=== PATIENT | male | born 1945 | race Caucasian/White ===

== ENCOUNTER 2017-07-01 19:11 | Inpatient (IN) ==
--- NOTE | 2017-07-01 19:34 | Emergency Department Note ---
Disposition Clinical Impression: HCAP (healthcare-associated pneumonia), Influenza, Hypoxia, Sepsis, Acute kidney injury, Diarrhea Disposition: Admitted As Inpatient Condition: Good General Adult HPI - General Chief complaint: ED General Medical Stated complaint: +Flu, abd pain, diarrhea Time Seen by Provider: 07/01/17 19:22 Source: patient, family Limitations: no limitations - History of Present Illness Pain Scale: 8 - Related Data Home Medications Medication Instructions Recorded Confirmed Albuterol Sulfate [Ventolin Hfa] 2 puff IH Q6H PRN 06/12/17 07/01/17 Amlodipine Besylate 10 mg PO DAILY 06/12/17 07/01/17 Aspirin [Lo-Dose Aspirin EC] 81 mg PO DAILY 06/12/17 07/01/17 Atorvastatin [Lipitor] 40 mg PO HS 06/12/17 07/01/17 Calcium Carb/Vitamin D3/Vit K1 1 each PO BID 06/12/17 07/01/17 [Calcium + D Soft Chewable Tab] Lisinopril [Zestril] 40 mg PO DAILY 06/12/17 07/01/17 Metformin HCl [Glucophage] 1,000 mg PO BID 06/12/17 07/01/17 Albuterol Neb [Proventil Neb] 2.5 mg IH Q8H PRN 07/01/17 07/01/17 Azithromycin [Azithromycin 6-Tab 250 mg PO PER PKG DI 07/01/17 07/01/17 Pack] Benzonatate [Tessalon] 100 mg PO Q6H PRN 07/01/17 07/01/17 Budesonide/Formoterol 160/4.5 2 puff IH BIDR 07/01/17 07/01/17 [Symbicort 160/4.5] Carboxymethylcellulose Sodium 1 drop OP TID 07/01/17 07/01/17 [Refresh Liquigel] Cetirizine HCl [Zyrtec] 10 mg PO DAILY 07/01/17 07/01/17 Cyanocobalamin (Vitamin B-12) 1,000 mcg PO DAILY 07/01/17 07/01/17 [Vitamin B12] GuaiFENesin/Dextromethorphan 10 ml PO Q4H PRN 07/01/17 07/01/17 [Tussin Dm Syrup] Insulin Glargine [Lantus] 34 unit SQ HS 07/01/17 07/03/17 Mag Hydrox/Al Hydrox/Simeth 15 ml PO TIDAC 07/01/17 07/01/17 [Antacid Suspension] Nicotine Patch [Nicoderm] 7 mg TD DAILY 07/01/17 07/01/17 Nicotine Polacrilex [Nicotine 2 mg BC AD PRN 07/01/17 07/01/17 Lozenge] Omeprazole [PriLOSEC] 20 mg PO BIDAC 07/01/17 07/01/17 Oseltamivir [Tamiflu] 75 mg PO BID 07/01/17 07/01/17 Oxycodone HCl/Acetaminophen 1 each PO Q6H PRN 07/01/17 07/01/17 [Percocet 10-325 mg Tablet] Tiotropium [place] [Spiriva 2 puff IH DAILY 07/01/17 07/01/17 Respimat] Venlafaxine XR (24 HR) [Effexor XR] 37.5 mg PO DAILY 07/01/17 07/01/17 glipiZIDE [Glipizide] 10 mg PO BID 07/01/17 07/01/17 guaiFENesin [Guaifenesin] 400 mg PO Q12H 07/01/17 07/01/17 hydroCHLOROthiazide 25 mg PO DAILY 07/01/17 07/01/17 [Hydrochlorothiazide] Previous Rx's Medication Instructions Recorded Clopidogrel [Plavix] 75 mg PO DAILY #30 tablet 06/12/17 Allergies Allergy/AdvReac Type Severity Reaction Status Date / Time No Known Allergies Allergy Verified 06/12/17 06:54 Past Medical History - Past Medical History Medical history: Reports: cancer, COPD, diabetes, hyperlipidemia, hypertension Surgical history: Reports: cataract, orthopedic, other Psychiatric history: Reports: no psych history - Social History Smoking Status: Current every day smoker Smokeless Tobacco Status: No Alcohol use: Reports: rarely Drug use: Reports: none Physical Exam - General Limitations: no limitations General appearance: alert, in no apparent distress Course Vital Signs Temperature 97.7 F 07/01/17 19:13 Pulse Rate 119 07/01/17 19:13 Respiratory Rate 18 07/01/17 19:13 Blood Pressure 115/60 07/01/17 19:13 O2 Sat by Pulse Oximetry 85 07/01/17 19:13 Temperature 98 F 07/04/17 11:02 Pulse Rate 97 07/04/17 11:02 Respiratory Rate 16 07/04/17 11:02 Blood Pressure 135/75 07/04/17 11:02 O2 Sat by Pulse Oximetry 95 07/04/17 11:02 Oxygen Delivery Oxygen Delivery Nasal Cannula Medical Decision Making - Lab Data Result diagrams: 07/04/17 07:06 07/04/17 07:06 Lab Results 07/01/17 07/01/17 07/01/17 Range/Units 19:46 19:46 19:46 WBC 17.9 H (4.3-11.1) K/mcL RBC 4.70 (4.19-5.50) M/mcL Hgb 13.5 (12.9-16.9) g/dL Hct 40.5 (37.5-50.1) % MCV 86.2 (83.0-100.0) fL MCH 28.7 (28.0-33.3) pg MCHC 33.3 (31.6-35.5) g/dL RDW 13.3 (11.5-14.5) % Plt Count 346 (140-400) K/mcL MPV 11.0 (9.4-12.4) fL Seg Neutrophils % 70.0 % Band Neutrophils % 10.0 H (0-4) % Lymphocytes % 14.0 % Monocytes % 2.0 % Metamyelocytes % 4.0 H (0) % Neutrophils # 14.3 H (1.6-8.9) K/mcL Lymphocytes # 2.5 (0.6-4.6) K/mcL Monocytes # 0.4 (0.0-1.3) K/mcL Nucleated RBCs/100 WBC 0.2 H (0) /100 WBC Reactive Lymphocytes Present A (Not Present) Toxic Granulation Present A (Not Present) Platelet Estimate Normal (Normal) Sodium 133 L (136-145) mEq/L Potassium 3.1 L (3.5-5.1) mEq/L Chloride 99 (98-107) mEq/L Carbon Dioxide 22 L (23-29) mEq/L BUN 32 H (8-23) mg/dL Creatinine 1.38 H (0.70-1.30) mg/dL Est GFR ( Amer) > 60 (> 60) Est GFR (Non-Af Amer) 51 L (> 60) BUN/Creatinine Ratio 23 (6-26) Glucose 66 L (70-105) mg/dL Calculated Osmolality 281 (280-300) Lactic Acid 3.6 H (0.5-2.2) mmol/L Calcium 9.3 (8.6-10.3) mg/dL Total Bilirubin 0.7 (0.3-1.0) mg/dL Direct Bilirubin 0.1 (0.0-0.2) mg/dL Indirect Bilirubin 0.6 (0.0-1.2) mg/dL AST 57 H (13-39) Units/L ALT 51 (7-52) Units/L Alkaline Phosphatase 81 (34-104) Units/L Serum Total Protein 7.1 (6.4-8.9) g/dL Albumin 3.1 L (3.5-5.7) g/dL Globulin 4.0 H (2.4-3.5) g/dL Albumin/Globulin Ratio 0.8 L (1.1-2.2) Lipase 18 (11-82) Units/L Urine Color (Yellow) Urine Clarity (Clear) Urine pH (5.0-8.0) pH Units Ur Specific [place] (1.010-1.025) Urine Protein (Neg-Trace) mg/dL Urine Glucose (UA) (Normal) mg/dL Urine Ketones (Negative) mg/dL Urine Blood (Negative) Urine Nitrite (Negative) Urine Bilirubin (Negative) Urine Urobilinogen (Normal) mg/dL Ur Leukocyte Esterase (Negative) Urine Microscopic RBC (0-3) per hpf Urine Microscopic WBC (0-3) per hpf Ur Squamous Epith Cells (None-Few) per lpf Ur Renal Epithelial Cell (None-Few) per hpf Amorphous Sediment (Few) Urine Bacteria (None-Few) per hpf Hyaline Casts (None-Few) per lpf Ur Culture Indicated? (NO) 07/01/17 07/01/17 Range/Units 20:10 22:06 WBC (4.3-11.1) K/mcL RBC (4.19-5.50) M/mcL Hgb (12.9-16.9) g/dL Hct (37.5-50.1) % MCV (83.0-100.0) fL MCH (28.0-33.3) pg MCHC (31.6-35.5) g/dL RDW (11.5-14.5) % Plt Count (140-400) K/mcL MPV (9.4-12.4) fL Seg Neutrophils % % Band Neutrophils % (0-4) % Lymphocytes % % Monocytes % % Metamyelocytes % (0) % Neutrophils # (1.6-8.9) K/mcL Lymphocytes # (0.6-4.6) K/mcL Monocytes # (0.0-1.3) K/mcL Nucleated RBCs/100 WBC (0) /100 WBC Reactive Lymphocytes (Not Present) Toxic Granulation (Not Present) Platelet Estimate (Normal) Sodium (136-145) mEq/L Potassium (3.5-5.1) mEq/L Chloride (98-107) mEq/L Carbon Dioxide (23-29) mEq/L BUN (8-23) mg/dL Creatinine (0.70-1.30) mg/dL Est GFR ( Amer) (> 60) Est GFR (Non-Af Amer) (> 60) BUN/Creatinine Ratio (6-26) Glucose (70-105) mg/dL Calculated Osmolality (280-300) Lactic Acid 2.1 (0.5-2.2) mmol/L Calcium (8.6-10.3) mg/dL Total Bilirubin (0.3-1.0) mg/dL Direct Bilirubin (0.0-0.2) mg/dL Indirect Bilirubin (0.0-1.2) mg/dL AST (13-39) Units/L ALT (7-52) Units/L Alkaline Phosphatase (34-104) Units/L Serum Total Protein (6.4-8.9) g/dL Albumin (3.5-5.7) g/dL Globulin (2.4-3.5) g/dL Albumin/Globulin Ratio (1.1-2.2) Lipase (11-82) Units/L Urine Color Dark Yellow (Yellow) Urine Clarity Turbid A (Clear) Urine pH 5.5 (5.0-8.0) pH Units Ur Specific [place] 1.028 H (1.010-1.025) Urine Protein 30 H (Neg-Trace) mg/dL Urine Glucose (UA) Normal (Normal) mg/dL Urine Ketones Negative (Negative) mg/dL Urine Blood Negative (Negative) Urine Nitrite Negative (Negative) Urine Bilirubin Small H (Negative) Urine Urobilinogen Normal (Normal) mg/dL Ur Leukocyte Esterase Negative (Negative) Urine Microscopic RBC 0-3 (0-3) per hpf Urine Microscopic WBC 15-30 H (0-3) per hpf Ur Squamous Epith Cells Many H (None-Few) per lpf Ur Renal Epithelial Cell Few (None-Few) per hpf Amorphous Sediment Moderate H (Few) Urine Bacteria None Seen (None-Few) per hpf Hyaline Casts Moderate H (None-Few) per lpf Ur Culture Indicated? NO (NO) Attestation Statement - Attestation Attestation: I examined this patient and my medical decision-making was reviewed with the Resident Physician. I agree with the documented findings, disposition and treatment plan as described except to the extent set forth below. [id number] time provided Patient arrives in the care of his family other for ongoing symptoms after recently been diagnosed with influenza at the [facility]. The patient appears older than stated age and is sitting in a wheelchair at the time of my evaluation. He appears slightly tachypneic and dyspneic. He is not home oxygen dependent. The patient is seen in conjunction with the resident physician Dr. Lo
[2017-07-01] MEDS ORDERED: 0.9 % Sodium Chloride 1,000 ML IVC ONE ×3 (19:37→23:01)
[2017-07-01 19:57] LABS: Hematocrit 40.5 % (37.5-50.1); Hemoglobin 13.5 g/dL (12.9-16.9); Mean Corpuscular HGB Conc 33.3 g/dL (31.6-35.5); Mean Corpuscular Hemoglobin 28.7 pg (28.0-33.3); Mean Corpuscular Volume 86.2 fL (83.0-100.0); Nucleated Red Blood Cells 0.2 /100 WBC (0); Platelet Count 346 K/mcL (140-400); Red Cell Distribution Width 13.3 % (11.5-14.5)
[2017-07-01 20:13] LABS: Alanine Aminotransferase 51 Units/L (7-52); Albumin 3.1 g/dL (3.5-5.7); Albumin/Globulin Ratio 0.8 (1.1-2.2); Alkaline Phosphatase 81 Units/L (34-104); Aspartate Amino Transferase 57 Units/L (13-39); BUN/Creatinine Ratio 23 (6-26); Bilirubin,Direct 0.1 mg/dL (0.0-0.2); Bilirubin,Indirect 0.6 mg/dL (0.0-1.2); Bilirubin,Total 0.7 mg/dL (0.3-1.0); Blood Urea Nitrogen 32 mg/dL (8-23); Calcium 9.3 mg/dL (8.6-10.3); Carbon Dioxide 22 mEq/L (23-29); Chloride 99 mEq/L (98-107); Glucose 66 mg/dL (70-105); Lipase 18 Units/L (11-82); Osmolality,Calculated 281 (280-300); Potassium 3.1 mEq/L (3.5-5.1); Sodium 133 mEq/L (136-145); Total Protein 7.1 g/dL (6.4-8.9); eGFR For African Americans > 60 (> 60); eGFR For Non-African Americans 51 (> 60)
--- NOTE | 2017-07-01 20:14 | Emergency Department Note ---
Disposition Clinical Impression: HCAP (healthcare-associated pneumonia), Influenza, Hypoxia, Acute kidney injury Sepsis Qualifiers: Sepsis type: sepsis due to unspecified organism Qualified Code(s): A41.9 - Sepsis, unspecified organism Diarrhea Qualifiers: Diarrhea type: presumed infectious Qualified Code(s): R19.7 - Diarrhea, unspecified Disposition: Admitted As Inpatient Condition: Good Time of Disposition: 21:20 General Adult HPI - General Chief complaint: ED General Medical Stated complaint: +Flu, abd pain, diarrhea Time Seen by Provider: 07/01/17 19:22 Source: patient, family Limitations: no limitations Nursing Notes Reviewed: Yes Vital Signs Reviewed: Yes - History of Present Illness HPI Narrative: 72-year-old male history of hypertension, diabetes, hyperlipidemia, COPD not on home oxygen supplementation presents to the ED for flulike symptoms and abdominal pain with diarrhea. States are past 5 days he has been having flulike symptoms cough congestion. He also has some loose bowels. Recently evaluated at the [place] 2 days after which was on Thursday 2 days prior to evaluation here in diagnosed with the flu. He was also placed on the azithromycin as well as Tamiflu. Since then his symptoms have worsen. He has complaining of diffuse abdominal pain ascribed as a sharp ache. No radiation. Reports of nausea no vomiting. Denies any recent hospitalizations. Denies any chest pain. No fevers at home. He does not feel like he is improving. The diarrhea appears worse after the medications. Denies any urinary symptoms. History of bladder cancer with surgery. He has a follow-up appointment with his oncologist soon. At this time's suspect this could be likely medication related but will check some basic labs as well as a CT of the abdomen and pelvis. He was hypoxic on arrival and placed on 3 L nasal cannula. Will evaluate with a chest x-ray for possible pneumonia. He does not meet SIRS criteria at this time only for tachycardia. Patients concern for dehydration and his oral mucosal membranes are tacky. Will give him a leader of normal saline fluid. Denies history of congestive heart failure. Pain Scale: 8 - Related Data Home Medications Medication Instructions Recorded Confirmed Albuterol Sulfate [Ventolin Hfa] 2 puff IH Q6H PRN 06/12/17 07/01/17 Amlodipine Besylate 10 mg PO DAILY 06/12/17 07/01/17 Aspirin [Lo-Dose Aspirin EC] 81 mg PO DAILY 06/12/17 07/01/17 Atorvastatin [Lipitor] 40 mg PO HS 06/12/17 07/01/17 Calcium Carb/Vitamin D3/Vit K1 1 each PO BID 06/12/17 07/01/17 [Calcium + D Soft Chewable Tab] Lisinopril [Zestril] 40 mg PO DAILY 06/12/17 07/01/17 Metformin HCl [Glucophage] 1,000 mg PO BID 06/12/17 07/01/17 Albuterol Neb [Proventil Neb] 2.5 mg IH Q8H PRN 07/01/17 07/01/17 Azithromycin [Azithromycin 6-Tab 250 mg PO PER PKG DI 07/01/17 07/01/17 Pack] Benzonatate [Tessalon] 100 mg PO Q6H PRN 07/01/17 07/01/17 Budesonide/Formoterol 160/4.5 2 puff IH BIDR 07/01/17 07/01/17 [Symbicort 160/4.5] Carboxymethylcellulose Sodium 1 drop OP TID 07/01/17 07/01/17 [Refresh Liquigel] Cetirizine HCl [Zyrtec] 10 mg PO DAILY 07/01/17 07/01/17 Cyanocobalamin (Vitamin B-12) 1,000 mcg PO DAILY 07/01/17 07/01/17 [Vitamin B12] GuaiFENesin/Dextromethorphan 10 ml PO Q4H PRN 07/01/17 07/01/17 [Tussin Dm Syrup] Insulin Glargine [Lantus] 34 unit SQ DAILY 07/01/17 07/01/17 Mag Hydrox/Al Hydrox/Simeth 15 ml PO TIDAC 07/01/17 07/01/17 [Antacid Suspension] Nicotine Patch [Nicoderm] 7 mg TD DAILY 07/01/17 07/01/17 Nicotine Polacrilex [Nicotine 2 mg BC AD PRN 07/01/17 07/01/17 Lozenge] Omeprazole [PriLOSEC] 20 mg PO BIDAC 07/01/17 07/01/17 Oseltamivir [Tamiflu] 75 mg PO BID 07/01/17 07/01/17 Oxycodone HCl/Acetaminophen 1 each PO Q6H PRN 07/01/17 07/01/17 [Percocet 10-325 mg Tablet] Tiotropium [place] [Spiriva 2 puff IH DAILY 07/01/17 07/01/17 Respimat] Venlafaxine XR (24 HR) [Effexor XR] 37.5 mg PO DAILY 07/01/17 07/01/17 glipiZIDE [Glipizide] 10 mg PO BID 07/01/17 07/01/17 guaiFENesin [Guaifenesin] 400 mg PO Q12H 07/01/17 07/01/17 hydroCHLOROthiazide 25 mg PO DAILY 07/01/17 07/01/17 [Hydrochlorothiazide] Previous Rx's Medication Instructions Recorded Clopidogrel [Plavix] 75 mg PO DAILY #30 tablet 06/12/17 Allergies Allergy/AdvReac Type Severity Reaction Status Date / Time No Known Allergies Allergy Verified 06/12/17 06:54 All systems ED: reviewed and negative except as stated. Review of Systems: As Per HPI Constitutional: Denies: fever, chills ENT ED: Reports: congestion. Denies: throat pain Cardiovascular: Reports: dyspnea on exertion. Denies: chest pain Respiratory: Reports: cough, dyspnea Gastrointestinal: Reports: abdominal pain, diarrhea. Denies: nausea, vomiting Genitourinary: Denies: urgency, dysuria Musculoskeletal: Denies: back pain, neck pain Integumentary: Denies: rash, abrasion Neurological: Denies: headache Past Medical History - Past Medical History Attestation: Yes The following information was validated with the patient. Source: patient Medical history: Reports: cancer, COPD, diabetes, hyperlipidemia, hypertension Surgical history: Reports: cataract, orthopedic, other Psychiatric history: Reports: no psych history - Social History Smoking Status: Current every day smoker Smokeless Tobacco Status: No Alcohol use: Reports: rarely Drug use: Reports: none Physical Exam - General Limitations: no limitations General appearance: alert, in no apparent distress, obese - Head Head exam: atraumatic, normocephalic, normal inspection - Eye Eye exam: Present: normal appearance, PERRL, EOMI - ENT ENT exam: normal exam, normal oropharynx, mucous membranes dry - Neck Neck exam: Present: normal inspection, full ROM, trachea midline - Chest Chest inspection: Present: normal inspection, symmetric chest wall rise - Respiratory Respiratory exam: Present: normal lung sounds bilaterally. Absent: respiratory distress, wheezes - Expanded Respiratory Exam Location: rales: Lower, Right, Left - Cardiovascular Cardiovascular exam: Present: normal rhythm, tachycardia, normal heart sounds - Abdominal Exam Abdominal exam: Present: soft, tenderness, normal bowel sounds. Absent: Non- Tender, distention, guarding, rebound, rigidity, trauma, Walker's sign, Rovsing' s sign, tenderness at McBurney's Point Abdominal tenderness: Present: diffuse - Extremities Exam Extremities exam: Present: normal inspection, full ROM, normal capillary refill. Absent: tenderness, pedal edema - Back Exam Back exam: Present: normal inspection, full ROM. Absent: tenderness - Neurological Exam Neurological exam: Present: alert, oriented X3 - Psychiatric Psychiatric exam: Present: normal affect, normal mood - Skin Skin exam: Present: warm, dry, intact, normal color. Absent: rash, cyanosis, diaphoresis Course - Reevaluation(s) Reevaluation #1: Patient has confirmed pneumonia seen on CT and chest x-ray. Patient recently diagnosed with flu. He does meet sepsis criteria. Will treat him for healthcare associated pneumonia with vancomycin and Zosyn. Patient has a history of COPD reports worsening dyspnea. He recently quit smoking 2 days ago. No wheezing on lung auscultation. He does have some bibasilar rales. His lactase significantly elevated 3.6. Leukocytosis of 18. He also has a acute kidney injury consistent with likely dehydration. Patients currently receiving fluids. He is not hypotensive to require aggressive fluid resuscitation. His CT reveals inflammatory colitis consistent with his symptoms. Could be medication induced or infectious. Patient is are aware of the cyst on his left kidney. He reports them as a watery. No recent hospitalization to C. diff infection. At this time will continue to fluid hydrate and treat fro HCAP. Imodium for diarrhea and morphine for pain. Patients also initially hypoxic and currently requiring supplementation. Asians in agreement for admission and further management. - Consultations Consultation #1: Spoke with on-call hospitalist chet Kam to admit for HCAP, FLU, hypoxia, abd pain, diarrhea. No further orders at this time Time: 21:41 Vital Signs Temperature 97.7 F 07/01/17 19:13 Pulse Rate 119 07/01/17 19:13 Respiratory Rate 18 07/01/17 19:13 Blood Pressure 115/60 07/01/17 19:13 O2 Sat by Pulse Oximetry 85 07/01/17 19:13 Temperature 98.3 F 07/01/17 23:00 Pulse Rate 98 07/01/17 21:20 Respiratory Rate 18 07/01/17 23:00 Blood Pressure 121/55 07/01/17 23:00 O2 Sat by Pulse Oximetry 95 07/01/17 21:20 Oxygen Delivery Oxygen Delivery Nasal Cannula Medical Decision Making - MDM Narrative Medical decision making narrative: Patient was discussed with my attending physician who agrees with ED management and final disposition. They independently evaluated the patient. Please refer to their attestation to this encounter for additional information. This note was generated by [employer] voice recognition software and as a result grammatical or spelling errors may occur using this program. - Medical Records Medical records reviewed: Yes I reviewed the patient's medical records. - Lab Data Lab results reviewed: Yes I reviewed the patient's lab results. Result diagrams: 07/01/17 19:46 07/01/17 19:46 Lab Results 07/01/17 07/01/17 07/01/17 Range/Units 19:46 19:46 19:46 WBC 17.9 H (4.3-11.1) K/mcL RBC 4.70 (4.19-5.50) M/mcL Hgb 13.5 (12.9-16.9) g/dL Hct 40.5 (37.5-50.1) % MCV 86.2 (83.0-100.0) fL MCH 28.7 (28.0-33.3) pg MCHC 33.3 (31.6-35.5) g/dL RDW 13.3 (11.5-14.5) % Plt Count 346 (140-400) K/mcL MPV 11.0 (9.4-12.4) fL Seg Neutrophils % 70.0 % Band Neutrophils % 10.0 H (0-4) % Lymphocytes % 14.0 % Monocytes % 2.0 % Metamyelocytes % 4.0 H (0) % Neutrophils # 14.3 H (1.6-8.9) K/mcL Lymphocytes # 2.5 (0.6-4.6) K/mcL Monocytes # 0.4 (0.0-1.3) K/mcL Nucleated RBCs/100 WBC 0.2 H (0) /100 WBC Reactive Lymphocytes Present A (Not Present) Toxic Granulation Present A (Not Present) Platelet Estimate Normal (Normal) Sodium 133 L (136-145) mEq/L Potassium 3.1 L (3.5-5.1) mEq/L Chloride 99 (98-107) mEq/L Carbon Dioxide 22 L (23-29) mEq/L BUN 32 H (8-23) mg/dL Creatinine 1.38 H (0.70-1.30) mg/dL Est GFR ( Amer) > 60 (> 60) Est GFR (Non-Af Amer) 51 L (> 60) BUN/Creatinine Ratio 23 (6-26) Glucose 66 L (70-105) mg/dL Calculated Osmolality 281 (280-300) Lactic Acid 3.6 H (0.5-2.2) mmol/L Calcium 9.3 (8.6-10.3) mg/dL Total Bilirubin 0.7 (0.3-1.0) mg/dL Direct Bilirubin 0.1 (0.0-0.2) mg/dL Indirect Bilirubin 0.6 (0.0-1.2) mg/dL AST 57 H (13-39) Units/L ALT 51 (7-52) Units/L Alkaline Phosphatase 81 (34-104) Units/L Serum Total Protein 7.1 (6.4-8.9) g/dL Albumin 3.1 L (3.5-5.7) g/dL Globulin 4.0 H (2.4-3.5) g/dL Albumin/Globulin Ratio 0.8 L (1.1-2.2) Lipase 18 (11-82) Units/L Urine Color (Yellow) Urine Clarity (Clear) Urine pH (5.0-8.0) pH Units Ur Specific [place] (1.010-1.025) Urine Protein (Neg-Trace) mg/dL Urine Glucose (UA) (Normal) mg/dL Urine Ketones (Negative) mg/dL Urine Blood (Negative) Urine Nitrite (Negative) Urine Bilirubin (Negative) Urine Urobilinogen (Normal) mg/dL Ur Leukocyte Esterase (Negative) Urine Microscopic RBC (0-3) per hpf Urine Microscopic WBC (0-3) per hpf Ur Squamous Epith Cells (None-Few) per lpf Ur Renal Epithelial Cell (None-Few) per hpf Amorphous Sediment (Few) Urine Bacteria (None-Few) per hpf Hyaline Casts (None-Few) per lpf Ur Culture Indicated? (NO) 07/01/17 07/01/17 Range/Units 20:10 22:06 WBC (4.3-11.1) K/mcL RBC (4.19-5.50) M/mcL Hgb (12.9-16.9) g/dL Hct (37.5-50.1) % MCV (83.0-100.0) fL MCH (28.0-33.3) pg MCHC (31.6-35.5) g/dL RDW (11.5-14.5) % Plt Count (140-400) K/mcL MPV (9.4-12.4) fL Seg Neutrophils % % Band Neutrophils % (0-4) % Lymphocytes % % Monocytes % % Metamyelocytes % (0) % Neutrophils # (1.6-8.9) K/mcL Lymphocytes # (0.6-4.6) K/mcL Monocytes # (0.0-1.3) K/mcL Nucleated RBCs/100 WBC (0) /100 WBC Reactive Lymphocytes (Not Present) Toxic Granulation (Not Present) Platelet Estimate (Normal) Sodium (136-145) mEq/L Potassium (3.5-5.1) mEq/L Chloride (98-107) mEq/L Carbon Dioxide (23-29) mEq/L BUN (8-23) mg/dL Creatinine (0.70-1.30) mg/dL Est GFR ( Amer) (> 60) Est GFR (Non-Af Amer) (> 60) BUN/Creatinine Ratio (6-26) Glucose (70-105) mg/dL Calculated Osmolality (280-300) Lactic Acid 2.1 (0.5-2.2) mmol/L Calcium (8.6-10.3) mg/dL Total Bilirubin (0.3-1.0) mg/dL Direct Bilirubin (0.0-0.2) mg/dL Indirect Bilirubin (0.0-1.2) mg/dL AST (13-39) Units/L ALT (7-52) Units/L Alkaline Phosphatase (34-104) Units/L Serum Total Protein (6.4-8.9) g/dL Albumin (3.5-5.7) g/dL Globulin (2.4-3.5) g/dL Albumin/Globulin Ratio (1.1-2.2) Lipase (11-82) Units/L Urine Color Dark Yellow (Yellow) Urine Clarity Turbid A (Clear) Urine pH 5.5 (5.0-8.0) pH Units Ur Specific [place] 1.028 H (1.010-1.025) Urine Protein 30 H (Neg-Trace) mg/dL Urine Glucose (UA) Normal (Normal) mg/dL Urine Ketones Negative (Negative) mg/dL Urine Blood Negative (Negative) Urine Nitrite Negative (Negative) Urine Bilirubin Small H (Negative) Urine Urobilinogen Normal (Normal) mg/dL Ur Leukocyte Esterase Negative (Negative) Urine Microscopic RBC 0-3 (0-3) per hpf Urine Microscopic WBC 15-30 H (0-3) per hpf Ur Squamous Epith Cells Many H (None-Few) per lpf Ur Renal Epithelial Cell Few (None-Few) per hpf Amorphous Sediment Moderate H (Few) Urine Bacteria None Seen (None-Few) per hpf Hyaline Casts Moderate H (None-Few) per lpf Ur Culture Indicated? NO (NO) - Radiology Data Radiology results reviewed: Yes I reviewed the patient's radiology results. Abdomen/Pelvis CT 07/01/17 19:37 IMPRESSION: 1. Patchy consolidation within the lower lobes bilaterally, greater on the left, compatible with multifocal pneumonia. That should be followed to resolution. 2. Fluid-filled distention of both large and small bowel suggesting ileus in the setting of enteritis/colitis. 3. There is mild mural thickening involving the distal ileum as well is within the proximal aspect the colon, greatest at the hepatic flexure. Again, this most compatible with inflammation in the setting of infectious or inflammatory enteritis/colitis. 4. Hyperdense material layering within the gallbladder, possibly gallbladder sludge versus stones. 5. Indeterminate 1.5 cm lesion extending from the anterior aspect of the lower pole the left kidney, probably a hyperdense cyst. Nonemergent follow-up ultrasound is recommended after resolution of acute symptoms to ensure that this is a cystic lesion. D/ / Jose Angel Toledo MD / Jose Angel Toledo MD Interpreting Provider: Jose Angel Toledo MD Chest X-Ray 07/01/17 19:38 IMPRESSION: Patchy airspace disease in the mid to lower lungs bilaterally, greater on the right. Multifocal pneumonia is considered. D/ / Jose Angel Toledo MD / Jose Angel Toledo MD Interpreting Provider: Jose Angel Toledo MD
[2017-07-01 20:20] LABS: Lymphocytes # 2.5 K/mcL (0.6-4.6); Monocytes # 0.4 K/mcL (0.0-1.3); Neutrophils # 14.3 K/mcL (1.6-8.9)
[2017-07-01 20:21] LABS: Platelet Estimate Normal (Normal); Reactive Lymphocytes Present (Not Present); Toxic Granulation Present (Not Present)
[2017-07-01 20:39] LABS: Bilirubin,Urine Small (Negative); Blood,Urine Negative (Negative); Clarity,Urine Turbid (Clear); Color,Urine Dark Yellow (Yellow); Glucose,Urine (UA) Normal (Normal); Ketones,Urine Negative (Negative); Leukocyte Esterase,Urine Negative (Negative); Nitrite,Urine Negative (Negative); PH,Urine 5.5 pH Units (5.0-8.0); Protein,Urine 30 mg/dL (Neg-Trace); Specific Gravity,Urine 1.028 (1.010-1.025); Urobilinogen,Urine Normal (Normal)
[2017-07-01 20:43] LABS: Bacteria,Urine None Seen per hpf (None-Few); Squamous Epithelial Cell,Urine Many per lpf (None-Few); WBC,Urine 15-30 per hpf (0-3)
[2017-07-01] MEDS ORDERED: Vancomycin 1,500 MG in D5% in Water 250 ML IVPB ONE (20:52)
[2017-07-01] MEDS ORDERED: Piperacillin/Tazobactam 3.375 GM in D5% in Water (Mini-Bag+) 100 ML IVPB ONE (20:53)
[2017-07-01 20:55] LABS: Hyaline Casts,Urine Moderate per lpf (None-Few)
[2017-07-01 20:56] LABS: Renal Epithelial Cells,Urine Few per hpf (None-Few)
[2017-07-01 20:58] LABS: Amorphous Sediment,Urine Moderate (Few); RBC,Urine 0-3 per hpf (0-3)
[2017-07-01] MEDS ORDERED: *HR* Morphine 2 MG/ML SYRINGE IVP ONE (21:27)
[2017-07-01] MEDS ORDERED: Nicotine 2 MG GUM BC PRN (22:44)
[2017-07-01] MEDS ORDERED: Ipratropium/Albuterol Neb 3 ML IH PRN (22:46)
[2017-07-01] MEDS ORDERED: D5% in Water 1,000 ML IVC PRN (22:46)
[2017-07-01] MEDS ORDERED: *HR* Dextrose 50 % in Water (Syg) 50 ML SYRINGE IVP PRN (22:46)
[2017-07-01] MEDS ORDERED: Dextrose Gel 15 GM/37.5 ML TUBE PO PRN ×2 (22:46)
[2017-07-01] MEDS ORDERED: Naloxone 0.4 MG/ML INJ IVP PRN (22:47)
--- NOTE | 2017-07-01 22:54 | Internal Med History&Physical ---
Date of Encounter: 07/01/17 Time of Encounter: 22:51 Assessment and Plan (1) Influenza Current visit: Yes Status: Acute tamiflu (2) PNA (pneumonia) Current visit: Yes Status: Acute empiric IV antibiotics send serologies, pneumoccocal treat flu duonebs trend lactate - likely due to low BP IVF boluses Qualifiers: Qualified Code(s): J18.9 - Pneumonia, unspecified organism (3) Acute kidney injury Current visit: Yes Status: Acute 2/2 to diarrhea IVF with K additive check Mg repeat lab in the a.m (4) Diarrhea Current visit: Yes Status: Acute likely related to flu illness check legionella Qualifiers: Diarrhea type: presumed infectious Qualified Code(s): R19.7 - Diarrhea, unspecified (5) DMII (diabetes mellitus, type 2) Current visit: Yes Status: Acute hold home insulin /med due to questionable PO intake with acute illness ISS for now and adjust accordingly as needed Qualifiers: Diabetes mellitus complication status: without complication Qualified Code( s): E11.9 - Type 2 diabetes mellitus without complications; Z79.4 - long term acute care registered nurse ( current) use of insulin; Z79.4 - alf (current) use of insulin; Z79.4 - alf (current) use of insulin; Z79.4 - long term acute care registered nurse (current) use of insulin (6) HTN (hypertension) Current visit: Yes Status: Acute hold BP med 2/2 to hypovolemia from fluid losses Qualifiers: Hypertension type: essential hypertension Qualified Code(s): I10 - Essential (primary) hypertension Internal Medicine - H&P: HPI Chief complaint: diarrhea, SOB History of present illness: Mr. Walker is a 72 year old male who presents with diarrhea and progressive SOB. Symptoms began on thursday when he developed diarrhea, non-bloody, associated with abdo pain and SOB all at that same time. He recalled that he was at a on where everyone was sick. [facility] and he was sent home on tamiflu and azithro. Symptoms did not get better since returning home. He gets winded around his house. At baseline he uses no oxygen and smokes 3/4 ppd. He reports fever and chills XR/XR chest 1V portable IMPRESSION: Patchy airspace disease in the mid to lower lungs bilaterally, greater on the right. Multifocal pneumonia is considered. Past Med Surg Social Fam HX - Past Medical History Medical history: cancer, COPD, diabetes, hyperlipidemia, hypertension Psychiatric history: no psych history - Past Surgical History Surgical History: cataract, orthopedic, other - Social History Smoking Status: Current every day smoker Smokeless Tobacco Status: No Alcohol use: rarely Drug use: none Internal Medicine - H&P: Meds Albuterol Sulfate [Ventolin Hfa] 2 puff IH Q6H PRN 06/12/17 [History] Amlodipine Besylate 10 mg PO DAILY 06/12/17 [History] Aspirin [Lo-Dose Aspirin EC] 81 mg PO DAILY 06/12/17 [History] Atorvastatin [Lipitor] 40 mg PO HS 06/12/17 [History] Calcium Carb/Vitamin D3/Vit K1 [Calcium + D Soft Chewable Tab] 1 each PO BID [History] Clopidogrel [Plavix] 75 mg PO DAILY #30 tablet 06/12/17 [Rx] Lisinopril [Zestril] 40 mg PO DAILY 06/12/17 [History] Metformin HCl [Glucophage] 1,000 mg PO BID 06/12/17 [History] Albuterol Neb [Proventil Neb] 2.5 mg IH Q8H PRN 07/01/17 [History] Azithromycin [Azithromycin 6-Tab Pack] 250 mg PO PER PKG DI 07/01/17 [History] Benzonatate [Tessalon] 100 mg PO Q6H PRN 07/01/17 [History] Budesonide/Formoterol 160/4.5 [Symbicort 160/4.5] 2 puff IH BIDR 07/01/17 [ History] Carboxymethylcellulose Sodium [Refresh Liquigel] 1 drop OP TID 07/01/17 [History ] Cetirizine HCl [Zyrtec] 10 mg PO DAILY 07/01/17 [History] Cyanocobalamin (Vitamin B-12) [Vitamin B12] 1,000 mcg PO DAILY 07/01/17 [History ] GuaiFENesin/Dextromethorphan [Tussin Dm Syrup] 10 ml PO Q4H PRN 07/01/17 [ History] Insulin Glargine [Lantus] 34 unit SQ DAILY 07/01/17 [History] Mag Hydrox/Al Hydrox/Simeth [Antacid Suspension] 15 ml PO TIDAC 07/01/17 [ History] Nicotine Patch [Nicoderm] 7 mg TD DAILY 07/01/17 [History] Nicotine Polacrilex [Nicotine Lozenge] 2 mg BC AD PRN 07/01/17 [History] Omeprazole [PriLOSEC] 20 mg PO BIDAC 07/01/17 [History] Oseltamivir [Tamiflu] 75 mg PO BID 07/01/17 [History] Oxycodone HCl/Acetaminophen [Percocet 10-325 mg Tablet] 1 each PO Q6H PRN [History] Tiotropium [place] [Spiriva Respimat] 2 puff IH DAILY 07/01/17 [History] Venlafaxine XR (24 HR) [Effexor XR] 37.5 mg PO DAILY 07/01/17 [History] glipiZIDE [Glipizide] 10 mg PO BID 07/01/17 [History] guaiFENesin [Guaifenesin] 400 mg PO Q12H 07/01/17 [History] hydroCHLOROthiazide [Hydrochlorothiazide] 25 mg PO DAILY 07/01/17 [History] 3 Allergy/AdvReac Type Severity Reaction Status Date / Time No Known Allergies Allergy Verified 06/12/17 06:54 All Systems PM: A 10-system review of systems was performed and is negative for pertinent findings except as documented above in the HPI. Review of systems: ROS 14 point review of systems reviewed as best as possible given presentation. Pertinent positive or negative as per HPI or otherwise reviewed as negative - Constitutional Vitals: Temp Pulse Resp BP Pulse Ox 97.7 F 98 20 122/50 95 07/01/17 19:13 07/01/17 21:20 07/01/17 21:20 07/01/17 21:20 07/01/17 21:20 Exam: General - AAO x 3 Psych - Appropriate affect/speech. No agitation Eyes - CHRISTIANO. Eye lids intact. No scleral icterus Heart - Sinus. RRR. S1 and S2 present. No added HS/murmurs appreciated. No elevated JVD appreciated. Lung - Adequate air entry b/l, Bibasal crackles, no wheezes appreciated GI - Soft, non-tender. No hepatosplenomegaly/ascites. BS+ - No CVA/suprapubic tenderness or palpable bladder distension Skin - Intact. No rash/petechiae/ecchymosis. Warm extremities Internal Med - H&P Results - Labs CBC & Chem 7: 07/01/17 19:46 07/01/17 19:46
[2017-07-02] MEDS: GuaiFENesin Liq 200 MG/10 ML UDC PO SCH ×3 (00:06→21:47)
[2017-07-02] MEDS: Cefepime HCl 2,000 MG in Water for inj. (sterile) 20 ML IVP SCH ×2 (00:06→12:38)
[2017-07-02] MEDS: Azithromycin 500 MG in D5% in Water 250 ML IVPB SCH ×2 (00:19→23:27)
[2017-07-02] MEDS: 0.9 % Sodium Chloride w KCl 20 MEQ/1,000 ML MLS IVC SCH ×3 (03:30→23:28)
[2017-07-02 04:10] LABS: BUN/Creatinine Ratio 28 (6-26); Blood Urea Nitrogen 33 mg/dL (8-23); Calcium 8.2 mg/dL (8.6-10.3); Carbon Dioxide 23 mEq/L (23-29); Chloride 103 mEq/L (98-107); Glucose 55 mg/dL (70-105); Magnesium 1.8 mg/dL (1.6-2.6); Osmolality,Calculated 281 (280-300); Potassium 2.9 mEq/L (3.5-5.1); Sodium 133 mEq/L (136-145); eGFR For African Americans > 60 (> 60); eGFR For Non-African Americans 60 (> 60)
[2017-07-02] MEDS: Ipratropium/Albuterol Neb 3 ML IH SCH ×4 (04:21→22:39)
[2017-07-02 04:23] LABS: Basophils # 0.1 K/mcL (0.0-0.2); Basophils % 0.5 %; Immature Granulocytes % 1.1 % (0-4); Lymphocytes # 2.1 K/mcL (0.6-4.6); Mean Corpuscular Hemoglobin 28.8 pg (28.0-33.3); Mean Corpuscular Volume 87.1 fL (83.0-100.0); Mean Platelet Volume 11.5 fL (9.4-12.4); Monocytes # 0.8 K/mcL (0.0-1.3); Monocytes % 5.1 %; Neutrophils # 11.9 K/mcL (1.6-8.9); Nucleated Red Blood Cells 0.2 /100 WBC (0); Platelet Count 276 K/mcL (140-400); Red Blood Count 3.79 M/mcL (4.19-5.50); Red Cell Distribution Width 13.3 % (11.5-14.5); Segmented Neutrophils % 79.3 %
[2017-07-02 04:30] LABS: Hemoglobin 10.9 g/dL (12.9-16.9)
[2017-07-02] MEDS: *HR* OxyCODONE/APAP 10/325 TABLET PO PRN ×2 (04:33→16:06)
[2017-07-02 04:46] LABS: Platelet Estimate Normal (Normal); Reactive Lymphocytes Present (Not Present); Toxic Granulation Present (Not Present)
[2017-07-02] MEDS ORDERED: Cefepime HCl 2,000 MG in D5% in Water (Mini-Bag+) 100 ML IVPB SCH (06:00)
[2017-07-02] MEDS ORDERED: *HR* Enoxaparin 30 MG/0.3 ML SYRINGE SQ SCH (06:00)
[2017-07-02] MEDS ORDERED: Tiotropium 18 MCG inhalation IH SCH (09:00)
[2017-07-02] MEDS: Insulin LISPRO 300 UNITS/3 ML VIAL SQ SCH ×4 (09:02→21:49)
[2017-07-02] MEDS: Venlafaxine XR (24 HR) 37.5 MG CAP.ER.24H PO SCH (09:02)
[2017-07-02] MEDS: Aspirin Enteric Coated 81 MG Tablet PO SCH (09:03)
[2017-07-02] MEDS: Loratadine 10 MG TABLET PO SCH (09:03)
[2017-07-02] MEDS: Nicotine 14 MG PATCH.TD24 TD SCH (09:05)
[2017-07-02] MEDS ORDERED: Water for inj. (sterile) 20 ML IV ONE (12:35)
--- NOTE | 2017-07-02 18:13 | Internal Med Progress Note ---
Date of Encounter: 07/02/17 Time of Encounter: 18:11 (Pt seen this am) - Assessment and plan (1) PNA (pneumonia) Current Visit: Yes Status: Acute Assessment and plan: Influenza infection with Pneumonia like assoctiated with S. pneumo. Streptococcal Urinary Ag positive. Discontinue Cefepime and start Rocephin. Blood cultures pending. Continue DuoNebs Qualifiers: Pneumonia type: due to unspecified organism Laterality: unspecified laterality Lung location: unspecified part of lung Qualified Code(s): J18.9 - Pneumonia, unspecified organism (2) Influenza Current Visit: Yes Status: Acute Assessment and plan: Continue Tamiflu and supportive care. (3) Diarrhea Current Visit: Yes Status: Acute Qualifiers: Diarrhea type: unspecified type Qualified Code(s): R19.7 - Diarrhea, unspecified (4) Dehydration Current Visit: Yes Status: Acute (5) Acute kidney injury Current Visit: Yes Status: Acute Assessment and plan: Associated with N/V and Diarrhea. Continue fluid replacement and monitor renal function. - Time Spent With Patient Greater than 35 minutes - Subjective Interval history: 72 yr old man admitted overnight with Influenza and CAP. He's breathing more comfortably and in no acute distress. - Constitutional Vitals: Temp Pulse Resp BP Pulse Ox 97 F L 93 16 122/60 98 07/02/17 16:20 07/02/17 16:20 07/02/17 16:20 07/02/17 16:20 07/02/17 16:20 - Head Head exam: Present: normal inspection, normocephalic - Eye Eye exam: Present: EOMI, PERRL, conjuntiva pink, sclera anicteric - Neck Neck exam general surgery: Present: normal inspection, supple, trachea midline. Absent: lymphadenopathy, nuchal rigidity - Respiratory Respiratory exam: Present: CTAB. Absent: respiratory distress - Cardiovascular Cardiovascular exam: Present: RRR, +S1, +S2 - GI/Abdominal GI/Abdominal exam: Present: normal bowel sounds, soft, no peritoneal signs. Absent: guarding, rigid, tenderness - Extremities Exam Extremities exam: Present: pedal edema - Skin Skin exam: Present: dry, warm. Absent: rash Internal Medicine: Result - Labs CBC & Chem 7: 07/02/17 03:21 07/02/17 03:21 Labs: Short CBC 07/02/17 Range/Units 03:21 WBC 15.0 H (4.3-11.1) K/mcL Hgb 10.9 L D (12.9-16.9) g/dL Hct 33.0 L (37.5-50.1) % Plt Count 276 (140-400) K/mcL Neutrophils # 11.9 H (1.6-8.9) K/mcL BMP 07/02/17 03:21 Sodium 133 L Potassium 2.9 L Chloride 103 Carbon Dioxide 23 BUN 33 H Creatinine 1.20 Glucose 55 L Calcium 8.2 L Consult Discharge Plan - Plan [facility]errals: [facility] [Primary Care Provider[facility] -
[2017-07-02] MEDS: cefTRIAXone 2,000 MG in Water for inj. (sterile) 20 ML IVP SCH (20:02)
[2017-07-03] MEDS: Ipratropium/Albuterol Neb 3 ML IH SCH ×4 (05:14→22:49)
[2017-07-03] MEDS: *HR* Enoxaparin 40 MG/0.4 ML SYRINGE SQ SCH (05:40)
[2017-07-03 07:06] LABS: BUN/Creatinine Ratio 20 (6-26); Blood Urea Nitrogen 16 mg/dL (8-23); Calcium 8.1 mg/dL (8.6-10.3); Carbon Dioxide 24 mEq/L (23-29); Chloride 102 mEq/L (98-107); Glucose 225 mg/dL (70-105); Osmolality,Calculated 284 (280-300); Potassium 3.3 mEq/L (3.5-5.1); Sodium 133 mEq/L (136-145); eGFR For African Americans > 60 (> 60); eGFR For Non-African Americans > 60 (> 60)
[2017-07-03 07:39] LABS: Hematocrit 32.8 % (37.5-50.1); Hemoglobin 10.8 g/dL (12.9-16.9); Mean Corpuscular HGB Conc 32.9 g/dL (31.6-35.5); Mean Corpuscular Hemoglobin 28.8 pg (28.0-33.3); Mean Corpuscular Volume 87.5 fL (83.0-100.0); Mean Platelet Volume 11.5 fL (9.4-12.4); Nucleated Red Blood Cells 0.2 /100 WBC (0); Platelet Count 288 K/mcL (140-400); Red Blood Count 3.75 M/mcL (4.19-5.50); Red Cell Distribution Width 13.4 % (11.5-14.5)
[2017-07-03 08:00] LABS: Lymphocytes # 1.3 K/mcL (0.6-4.6); Monocytes # 1.1 K/mcL (0.0-1.3); Neutrophils # 10.9 K/mcL (1.6-8.9); Platelet Estimate Normal (Normal)
[2017-07-03] MEDS: GuaiFENesin Liq 200 MG/10 ML UDC PO SCH ×2 (09:59→21:45)
[2017-07-03] MEDS: Venlafaxine XR (24 HR) 37.5 MG CAP.ER.24H PO SCH (09:59)
[2017-07-03] MEDS: Nicotine 14 MG PATCH.TD24 TD SCH (09:59)
[2017-07-03] MEDS: *HR* OxyCODONE/APAP 10/325 TABLET PO PRN ×3 (10:00→21:45)
[2017-07-03] MEDS: Loratadine 10 MG TABLET PO SCH (10:00)
[2017-07-03] MEDS: Aspirin Enteric Coated 81 MG Tablet PO SCH (10:00)
[2017-07-03] MEDS: Insulin LISPRO 300 UNITS/3 ML VIAL SQ SCH ×4 (10:01→21:39)
--- NOTE | 2017-07-03 17:11 | Internal Med Progress Note ---
Date of Encounter: 07/03/17 Time of Encounter: 17:08 - Assessment and plan (1) PNA (pneumonia) Current Visit: Yes Status: Acute Assessment and plan: Influenza infection with Pneumonia like assoctiated with S. pneumo. Pneumococcal Urinary Ag positive. Continue Rocephinand azithromycin. Blood cultures pending. Continue DuoNebs His lung sound more rhonchorous today. Check CXR in the am. Qualifiers: Pneumonia type: due to unspecified organism Laterality: unspecified laterality Lung location: unspecified part of lung Qualified Code(s): J18.9 - Pneumonia, unspecified organism (2) Influenza Current Visit: Yes Status: Acute Assessment and plan: Continue Tamiflu and supportive care. (3) Diarrhea Current Visit: Yes Status: Acute Qualifiers: Diarrhea type: unspecified type Qualified Code(s): R19.7 - Diarrhea, unspecified (4) Dehydration Current Visit: Yes Status: Acute (5) Acute kidney injury Current Visit: Yes Status: Acute - Subjective Interval history: 72 yr old man with Influenza and CAP. His Pneumococcal urinary antigen was found to be positive. He's breathing comfortably but feels weaker today. No N/ V/D. - Constitutional Vitals: Temp Pulse Resp BP Pulse Ox 97.7 F 86 17 132/70 94 07/03/17 16:15 07/03/17 16:15 07/03/17 16:42 07/03/17 16:15 07/03/17 16:42 General appearance: Present: A&O X 3, no acute distress - Head Head exam: Present: atraumatic, normocephalic - Eye Eye exam: Present: EOMI, normal appearance, PERRL, conjuntiva pink, sclera anicteric Pupils: Present: PERRL - Neck Neck exam general surgery: Present: supple, trachea midline. Absent: lymphadenopathy - Respiratory Respiratory exam: Present: rhonchi. Absent: accessory muscle use, CTAB, rales, wheezes - Cardiovascular Cardiovascular exam: Present: RRR, +S1, +S2. Absent: diastolic murmur, gallop, rubs, systolic murmur - GI/Abdominal GI/Abdominal exam: Present: normal bowel sounds, soft, no peritoneal signs. Absent: distended, tenderness - Extremities Exam Extremities exam: Present: warm. Absent: calf tenderness, cyanotic, pedal edema - Neurological Exam Neurological exam: Present: CN II-XII intact, oriented X3, no focal deficits. Absent: pronater drift, facial droop, speech deficit - Skin Skin exam: Present: dry, intact, warm Internal Medicine: Result - Labs CBC & Chem 7: 07/03/17 04:32 07/03/17 04:32 Labs: Short CBC 07/03/17 Range/Units 04:32 WBC 13.3 H (4.3-11.1) K/mcL Hgb 10.8 L (12.9-16.9) g/dL Hct 32.8 L (37.5-50.1) % Plt Count 288 (140-400) K/mcL Neutrophils # 10.9 H (1.6-8.9) K/mcL BMP 07/03/17 04:32 Sodium 133 L Potassium 3.3 L Chloride 102 Carbon Dioxide 24 BUN 16 Creatinine 0.79 Glucose 225 H Calcium 8.1 L Consult Discharge Plan - Plan [facility]errals: [facility] [Primary Care Provider] -
[2017-07-03] MEDS: 0.9 % Sodium Chloride w KCl 20 MEQ/1,000 ML MLS IVC SCH (18:45)
[2017-07-03] MEDS: cefTRIAXone 2,000 MG in Water for inj. (sterile) 20 ML IVP SCH (19:56)
[2017-07-03] MEDS: Insulin DETEMIR 100 UNIT/ML X5UNITS SQ SCH (21:45)
[2017-07-03] MEDS: Ondansetron 4 MG/2 ML VIAL IVP PRN (23:37)
[2017-07-03] MEDS: Azithromycin 500 MG in D5% in Water 250 ML IVPB SCH (23:38)
[2017-07-04] MEDS: *HR* OxyCODONE/APAP 10/325 TABLET PO PRN ×2 (03:43→11:28)
[2017-07-04] MEDS: 0.9 % Sodium Chloride w KCl 20 MEQ/1,000 ML MLS IVC SCH (03:44)
[2017-07-04] MEDS: Ipratropium/Albuterol Neb 3 ML IH SCH ×3 (04:30→15:59)
[2017-07-04] MEDS: *HR* Enoxaparin 40 MG/0.4 ML SYRINGE SQ SCH (06:02)
[2017-07-04] MEDS: Loratadine 10 MG TABLET PO SCH (07:59)
[2017-07-04] MEDS: Venlafaxine XR (24 HR) 37.5 MG CAP.ER.24H PO SCH (07:59)
[2017-07-04] MEDS: amLODIPine 5 MG TABLET PO SCH (07:59)
[2017-07-04] MEDS: Aspirin Enteric Coated 81 MG Tablet PO SCH (07:59)
[2017-07-04] MEDS: Nicotine 14 MG PATCH.TD24 TD SCH (08:00)
[2017-07-04] MEDS: Insulin LISPRO 300 UNITS/3 ML VIAL SQ SCH ×4 (08:00→21:29)
[2017-07-04] MEDS: Ondansetron 4 MG/2 ML VIAL IVP PRN (08:09)
[2017-07-04 08:23] LABS: Hematocrit 34.7 % (37.5-50.1); Hemoglobin 11.4 g/dL (12.9-16.9); Lymphocytes # 1.5 K/mcL (0.6-4.6); Mean Corpuscular HGB Conc 32.9 g/dL (31.6-35.5); Mean Corpuscular Hemoglobin 28.4 pg (28.0-33.3); Mean Corpuscular Volume 86.3 fL (83.0-100.0); Mean Platelet Volume 10.8 fL (9.4-12.4); Monocytes # 0.9 K/mcL (0.0-1.3); Nucleated Red Blood Cells 0.3 /100 WBC (0); Platelet Count 354 K/mcL (140-400); Red Blood Count 4.02 M/mcL (4.19-5.50); Red Cell Distribution Width 13.4 % (11.5-14.5)
[2017-07-04 08:31] LABS: BUN/Creatinine Ratio 11 (6-26); Blood Urea Nitrogen 8 mg/dL (8-23); Calcium 8.4 mg/dL (8.6-10.3); Carbon Dioxide 29 mEq/L (23-29); Chloride 98 mEq/L (98-107); Glucose 217 mg/dL (70-105); Osmolality,Calculated 281 (280-300); Potassium 3.6 mEq/L (3.5-5.1); Sodium 133 mEq/L (136-145); eGFR For African Americans > 60 (> 60); eGFR For Non-African Americans > 60 (> 60)
[2017-07-04 09:29] LABS: Neutrophils # 12.7 K/mcL (1.6-8.9)
[2017-07-04 09:30] LABS: Platelet Estimate Normal (Normal)
[2017-07-04] MEDS: GuaiFENesin Liq 200 MG/10 ML UDC PO SCH ×2 (11:25→23:41)
--- NOTE | 2017-07-04 18:01 | Internal Med Progress Note ---
Date of Encounter: 07/04/17 Time of Encounter: 17:59 - Assessment and plan (1) PNA (pneumonia) Current Visit: Yes Status: Acute Qualifiers: Pneumonia type: due to unspecified organism Laterality: unspecified laterality Lung location: unspecified part of lung Qualified Code(s): J18.9 - Pneumonia, unspecified organism (2) Influenza Current Visit: Yes Status: Acute (3) Diarrhea Current Visit: Yes Status: Acute Qualifiers: Diarrhea type: unspecified type Qualified Code(s): R19.7 - Diarrhea, unspecified (4) Dehydration Current Visit: Yes Status: Acute (5) Acute kidney injury Current Visit: Yes Status: Acute - Subjective Interval history: 72 yr old man with Influenza and CAP. His Pneumococcal urinary antigen was found to be positive. Today his abdomen became distended and painful. An acute abdominal series showed a likely SBO vs ileus so he was made nop and a CT-abd/ pelvis was ordered to evaluate further. - Constitutional Vitals: Temp Pulse Resp BP Pulse Ox 98.2 F 92 16 110/73 94 07/04/17 15:31 07/04/17 15:31 07/04/17 15:31 07/04/17 15:31 07/04/17 15:31 General appearance: Present: A&O X 3, no acute distress - Head Head exam: Present: atraumatic, normocephalic - Eye Eye exam: Present: PERRL, conjuntiva pink, sclera anicteric Pupils: Present: PERRL - Neck Neck exam general surgery: Present: supple, trachea midline. Absent: lymphadenopathy - GI/Abdominal GI/Abdominal exam: Present: distended, guarding, tenderness, no peritoneal signs. Absent: rebound, rigid - Extremities Exam Extremities exam: Present: warm, radial pulses palpable and symmetrical. Absent : calf tenderness, cyanotic, pedal edema Internal Medicine: Result - Labs CBC & Chem 7: 07/04/17 07:06 07/04/17 07:06 Labs: Short CBC 07/04/17 Range/Units 07:06 WBC 15.1 H (4.3-11.1) K/mcL Hgb 11.4 L (12.9-16.9) g/dL Hct 34.7 L (37.5-50.1) % Plt Count 354 (140-400) K/mcL Neutrophils # 12.7 H (1.6-8.9) K/mcL BMP 07/04/17 07:06 Sodium 133 L Potassium 3.6 Chloride 98 Carbon Dioxide 29 BUN 8 Creatinine 0.71 Glucose 217 H Calcium 8.4 L - Impressions Impressions Chest/Abdomen X-ray 07/04/17 16:11 IMPRESSION: Findings concerning for small bowel obstruction versus ileus. Distention of the stomach may also be present. Consider further evaluation with CT. Patchy bilateral infrahilar airspace opacities again noted, which could represent pneumonia. D/ / Hakan Santacruz MD / Hakan Santacruz MD Interpreting Provider: Hakan Santacruz MD Consult Discharge Plan - Plan [facility]errals: [facility] [Primary Care Provider] -
[2017-07-04] MEDS: *HR* Morphine 2 MG/ML SYRINGE IVP PRN (20:24)
[2017-07-04] MEDS: Insulin DETEMIR 100 UNIT/ML X5UNITS SQ SCH (21:34)
[2017-07-04] MEDS: cefTRIAXone 2,000 MG in Water for inj. (sterile) 20 ML IVP SCH (21:39)
[2017-07-04] MEDS: Azithromycin 500 MG in D5% in Water 250 ML IVPB SCH (23:57)
[2017-07-05] MEDS: 0.9 % Sodium Chloride w KCl 20 MEQ/1,000 ML MLS IVC SCH ×4 (03:08→13:51)
[2017-07-05] MEDS: *HR* Enoxaparin 40 MG/0.4 ML SYRINGE SQ SCH (05:36)
[2017-07-05] MEDS: Nicotine 14 MG PATCH.TD24 TD SCH (07:54)
[2017-07-05] MEDS: Nystatin SUSP 5 ML UD.LIQ PO SCH ×4 (07:58→22:48)
[2017-07-05] MEDS: Insulin LISPRO 300 UNITS/3 ML VIAL SQ SCH ×3 (08:07→18:04)
--- NOTE | 2017-07-05 08:24 | Internal Med Progress Note ---
Date of Encounter: 07/05/17 Time of Encounter: 08:21 - Assessment and plan (1) PNA (pneumonia) Current Visit: Yes Status: Acute Assessment and plan: Influenza infection with Pneumonia like assoctiated with S. pneumo. Pneumococcal Urinary Ag positive. Continue Rocephin and azithromycin. Blood cultures pending. DuoNebs held temporarily because patient c/o that they make his abdomen hurt more? Qualifiers: Pneumonia type: due to unspecified organism Laterality: unspecified laterality Lung location: unspecified part of lung Qualified Code(s): J18.9 - Pneumonia, unspecified organism (2) Influenza Current Visit: Yes Status: Acute (3) Diarrhea Current Visit: Yes Status: Resolved Qualifiers: Diarrhea type: unspecified type Qualified Code(s): R19.7 - Diarrhea, unspecified (4) Dehydration Current Visit: Yes Status: Acute (5) Acute kidney injury Current Visit: Yes Status: Acute (6) Ileus, unspecified Current Visit: Yes Status: Acute Assessment and plan: Patient made NPO and an NGT placed. Hold oral medications and switch as many to IV as possible. Surgery consulted. Code(s): K56.7 - Ileus, unspecified - Subjective Interval history: 72 yr old man with Influenza and CAP. His Pneumococcal urinary antigen was found to be positive. Today his abdomen became distended and painful. An acute abdominal series showed a likely SBO vs ileus so he was made npo and a CT-abd/ pelvis was ordered showing an obstruction vs. ileus. This am his abdomen is still distended and painful. - Constitutional Vitals: Temp Pulse Resp BP Pulse Ox 98.7 F 104 18 154/69 93 07/05/17 07:06 07/05/17 07:06 07/05/17 07:06 07/05/17 07:06 07/05/17 07:06 General appearance: Present: cooperative, A&O X 3 - Head Head exam: Present: atraumatic, normocephalic - ENT ENT exam: Present: mucous membranes moist Additional comments: oral thrush noted - Neck Neck exam general surgery: Present: trachea midline. Absent: nuchal rigidity, thyromegaly - Respiratory Respiratory exam: Present: rales, rhonchi. Absent: accessory muscle use - Cardiovascular Cardiovascular exam: Present: RRR, +S1, +S2. Absent: clicks, gallop, irregular rhythm - GI/Abdominal GI/Abdominal exam: Present: firm, soft Additional comments: Abdomen is distended,soft and nontender. hypoactive BS presnet in all 4 quads. Guarding over bilateral lower quads but no RBT. - Extremities Exam Extremities exam: Present: pedal edema, warm. Absent: calf tenderness, cyanotic - Neurological Exam Neurological exam: Present: altered, oriented X3, no focal deficits - Psychiatric Psychiatric exam: Present: normal affect, normal mood Internal Medicine: Result - Labs CBC & Chem 7: 07/04/17 07:06 07/04/17 07:06 Labs: Short CBC 07/04/17 Range/Units 07:06 WBC 15.1 H (4.3-11.1) K/mcL Hgb 11.4 L (12.9-16.9) g/dL Hct 34.7 L (37.5-50.1) % Plt Count 354 (140-400) K/mcL Neutrophils # 12.7 H (1.6-8.9) K/mcL BMP 07/04/17 07:06 Sodium 133 L Potassium 3.6 Chloride 98 Carbon Dioxide 29 BUN 8 Creatinine 0.71 Glucose 217 H Calcium 8.4 L - Impressions Impressions Chest/Abdomen X-ray 07/04/17 16:11 IMPRESSION: Findings concerning for small bowel obstruction versus ileus. Distention of the stomach may also be present. Consider further evaluation with CT. Patchy bilateral infrahilar airspace opacities again noted, which could represent pneumonia. D/ / Hakan Santacruz MD / Hakan Santacruz MD Interpreting Provider: Hakan Santacruz MD Abdomen/Pelvis CT 07/04/17 17:48 IMPRESSION: 1. Interval development of multiple dilated fluid-filled small bowel loops with marked gastric distention. Transition at the level of the terminal ileum. The findings may be related to a severe ileus versus a partial or intermittent obstruction. Persistent edema within the terminal ileum and proximal colon consistent with an infectious or inflammatory process . 2. Re-demonstration of patchy multifocal pneumonia at the lung bases. More focal ground-glass opacification at the right middle lobe. D/ / 07/04/2017 19:15:11 Neo Mcmahan MD / viki Interpreting Provider: Neo Mcmahan MD KUB X-Ray 07/04/17 21:57 IMPRESSION: Appropriate intragastric sump tube placement. D/ / Daniel Hogan / Daniel Hogan Interpreting Provider: Daniel Hogan Consult Discharge Plan - Plan [facility]errals: [facility] [Primary Care Provider[facility] -
[2017-07-05] MEDS: Venlafaxine XR (24 HR) 37.5 MG CAP.ER.24H PO SCH (08:28)
[2017-07-05] MEDS: Loratadine 10 MG TABLET PO SCH (08:28)
[2017-07-05] MEDS: Aspirin Enteric Coated 81 MG Tablet PO SCH (08:28)
[2017-07-05] MEDS: amLODIPine 5 MG TABLET PO SCH (08:28)
[2017-07-05 09:01] LABS: Basophils % 0.1 %; Eosinophils # 0.1 K/mcL (0.0-0.6); Hematocrit 40.6 % (37.5-50.1); Immature Granulocytes % 4.1 % (0-4); Lymphocytes # 1.5 K/mcL (0.6-4.6); Lymphocytes % 11.2 %; Mean Corpuscular Hemoglobin 28.3 pg (28.0-33.3); Mean Corpuscular Volume 88.5 fL (83.0-100.0); Mean Platelet Volume 9.8 fL (9.4-12.4); Monocytes # 0.8 K/mcL (0.0-1.3); Monocytes % 5.9 %; Nucleated Red Blood Cells 0.1 /100 WBC (0); Platelet Count 432 K/mcL (140-400); Red Blood Count 4.59 M/mcL (4.19-5.50); Red Cell Distribution Width 13.6 % (11.5-14.5); Segmented Neutrophils % 77.7 %
[2017-07-05 09:02] LABS: Neutrophils # 10.6 K/mcL (1.6-8.9)
[2017-07-05 09:42] LABS: BUN/Creatinine Ratio 16 (6-26); Blood Urea Nitrogen 11 mg/dL (8-23); Carbon Dioxide 27 mEq/L (23-29); Chloride 101 mEq/L (98-107); Glucose 165 mg/dL (70-105); Osmolality,Calculated 285 (280-300); Potassium 4.4 mEq/L (3.5-5.1); Sodium 136 mEq/L (136-145); eGFR For African Americans > 60 (> 60); eGFR For Non-African Americans > 60 (> 60)
--- NOTE | 2017-07-05 11:02 | General Surgery Consult Note ---
Date of Encounter: 07/05/17 Time of Encounter: 10:15 History of Present Illness Reason for consult: abdominal pain Requesting physician: Shukri Pleitez History of present illness: 72 yo referred to surgical services for persistent abdominal pain with radiologic evidence suggestive of a small bowel obstruction. The patient was transferred or referred by the [facility] [place] after presenting there on 06/30/17, with increasing shortness of breath and difficulty breathing. The patient was diagnosed with the flu recently and probably has progressed to pneumonia. Patient has significant COPD related to long-standing tobacco abuse. The patient complained of abdominal pain prior to his respiratory difficulties with worsening abdominal distention and pain following meals. The patient may have also vomited on several occasions prior to his presentation to [facility]. CT, abdomen/pelvis completed, 07/01/17, showed patchy consolidation in bilateral lower lobes pronounced on the left, fluid-filled distention of both large and small bowel suggesting ileus, mild mural thickening of the distal ileum as well as proximal aspect of the colon most pronounced at the hepatic flexure. This was felt to be compatible with inflammation such as enteritis/ colitis. Incidental note of hyperdense material layering within the gallbladder representing either sludge or stones. There is also an indeterminate 1.5 cm lesion extending from the anterior aspect of the lower pole of the left kidney. The patient has a history of kidney disease in this lesion is concerning. CT of the abdomen/pelvis, repeated 07/04/17, demonstrated patchy multifocal infiltrate in the lung bases with more confluent ground glass opacification in the right middle lobe. These findings are suggestive of aspiration related to repeated and persistent nausea and vomiting. CT also demonstrated interval development of multiple dilated loops of fluid-filled small bowel and markedly gastric distention. Transition was described at the level of the terminal ileum consistent with the previous findings of terminal ileitis/colitis. Review of the patient's records and orders indicate continued therapy for the patient's pneumonia but no treatment for this finding of enteritis/colitis. Past medical history: Renal cancer, severe COPD, diabetes, hypertension, hyperlipidemia. Surgical history: Patient denied any history of surgery but during my encounter with the patient is revealed that the patient has multiple stents in the left lower leg consistent with significant peripheral vascular disease related to his tobacco abuse. Allergies: No known drug allergies Medications: Ventolin HFA 2 puffs every 6 hours as needed for shortness of breath or wheezing Amlodipine 10 mg by mouth daily Aspirin 81 mg by mouth daily Atorvastatin 40 mg by mouth daily at bedtime Calcium carbonate/vitamin D3/vitamin K1 1 chewable tablet twice a day Lisinopril 40 mg by mouth daily Metformin 1000 mg by mouth twice a day Albuterol nebulizer 2.5 mg every 8 hours when necessary Azithromycin 250 mg by mouth daily for 6 days (prescribed prior to the patient's referral to [facility]) Benzonatate 100 mg by mouth every 6 hours when necessary Budesonide/formoterol 160/4.5 g 2 puffs twice a day Carboxymethylcellulose one drop each eye 3 times a day Cetirizine 10 mg by mouth daily Cyanocobalamin 1000 g by mouth daily Guaifenesin/dextromethorphan 10 mL by mouth every 4 hours when necessary Hydrochlorothiazide 25 mg by mouth daily clopidogrel 75 mg by mouth daily Social history: She is ; he admits to tobacco use 3 packs daily for 65 years; the patient apparently quit 1-2 weeks prior to his presentation to [facility] Patient denies any illicit drug; admits to frequent beer consumption Physical examination: 72-year-old, heavily bearded male lying in his hospital bed. NG tube in place but not draining/not connected to suction. The suction reservoir contains approximately 100 mL of a green watery fluid Most recent vital signs: Patient is afebrile at 98.7, pulse 86-104, respirations 16-18, blood pressure 154/69. SPO2 on 3 L/m nasal cannula 93-94% Skin: Warm without obvious jaundice Lungs: Bilateral rales no audible wheezes; no obvious respiratory distress. No abdominal pain on deep inspiration Cardiac: Tachycardia approximately 104 BPM; no audible murmurs Abdomen: Distended/protuberant diffusely tender without discernible intra- abdominal masses. No rebound. Absent bowel sounds. Patient describes a small bowel movement just prior to my presentation to bedside. No surgical scars were evident. Extremities: 1+ pitting edema most pronounced left lower extremity Laboratories: White count 13.7 (it is slowly diminished since his presentation on 07/01/17); hemoglobin 13.8, hematocrit 40.6 (increased over the past several days suggestive of mild dehydration) platelet count 432,000. Differential notable for 10.6% neutrophils (also slowly diminished since presentation) Electrolytes, BUN, creatinine within normal limits. Urinalysis on admission showed turbid cloudy, pH 5.5, specific gravity 1.028 , with 30 mcg/dL protein, small amount of bilirubin, 15-30 WBC/hpf CT abdomen and pelvis of 07/01/17 and 07/04/17 were personally reviewed Impression: 72-year-old male with severe COPD recently diagnosed flu admitted to [facility] with pneumonia. The patient may have aspirated during the course of this hospitalization related to repeated episodes nausea and vomiting due to an ileus versus small bowel obstruction. CT findings, 07/01/2017 and 07/04/2017, demonstrate mild wall thickening of the terminal ileum and ascending colon if accompanying mild pericolonic inflammatory changes consistent with terminal ileitis/colitis These findings appear to be the cause of the patient's abdominal pain, distention, and recurrent nausea and vomiting. Recommendations: #1 - continue NG decompression of the upper GI tract; NG restored to low continuous suction #2 - replace fluids evacuated by the NG tube; monitor I&O closely #3 - hold as many oral medications as possible, using IV meds preferentially until GI tract function returns #4 - metronidazole 5 mg IV every 6 hours #5 - consider parenteral nutrition as patient and his indicate no substantive calorie/protein intake for approx 9 days Thank you for this consultation, will follow along with you. My findings and recommendations have been discussed with the patient and his Past Med Surg Social Fam HX - Past Medical History Medical history: cancer, COPD, diabetes, hyperlipidemia, hypertension Psychiatric history: no psych history - Past Surgical History Surgical History: cataract, orthopedic, other - Social History Smoking Status: Current every day smoker Packs per day: 1+ Smokeless Tobacco Status: No Alcohol use: rarely Drug use: none - Family History Mother Family Member Ethnicity: Non- Living Status: Age at : 75 Cause of : broken ankle complications Hx Family Endocrine Disorder: Yes (DM) Daughter Family Member Ethnicity: Non- Living Status: Still Living Hx Family GI Disorders: (stomach ulcer) Son Family Member Ethnicity: Non- Hx Family Cardiac Disorders: Yes (HTN) Hx Family Endocrine Disorder: Yes (DM) Medications and Allergies Albuterol Sulfate [Ventolin Hfa] 2 puff IH Q6H PRN 06/12/17 [History] Amlodipine Besylate 10 mg PO DAILY 06/12/17 [History] Aspirin [Lo-Dose Aspirin EC] 81 mg PO DAILY 06/12/17 [History] Atorvastatin [Lipitor] 40 mg PO HS 06/12/17 [History] Calcium Carb/Vitamin D3/Vit K1 [Calcium + D Soft Chewable Tab] 1 each PO BID [History] Clopidogrel [Plavix] 75 mg PO DAILY #30 tablet 06/12/17 [Rx] Lisinopril [Zestril] 40 mg PO DAILY 06/12/17 [History] Metformin HCl [Glucophage] 1,000 mg PO BID 06/12/17 [History] Albuterol Neb [Proventil Neb] 2.5 mg IH Q8H PRN 07/01/17 [History] Azithromycin [Azithromycin 6-Tab Pack] 250 mg PO PER PKG DI 07/01/17 [History] Benzonatate [Tessalon] 100 mg PO Q6H PRN 07/01/17 [History] Budesonide/Formoterol 160/4.5 [Symbicort 160/4.5] 2 puff IH BIDR 07/01/17 [ History] Carboxymethylcellulose Sodium [Refresh Liquigel] 1 drop OP TID 07/01/17 [History ] Cetirizine HCl [Zyrtec] 10 mg PO DAILY 07/01/17 [History] Cyanocobalamin (Vitamin B-12) [Vitamin B12] 1,000 mcg PO DAILY 07/01/17 [History ] GuaiFENesin/Dextromethorphan [Tussin Dm Syrup] 10 ml PO Q4H PRN 07/01/17 [ History] Insulin Glargine [Lantus] 34 unit SQ HS 07/01/17 [History] Mag Hydrox/Al Hydrox/Simeth [Antacid Suspension] 15 ml PO TIDAC 07/01/17 [ History] Nicotine Patch [Nicoderm] 7 mg TD DAILY 07/01/17 [History] Nicotine Polacrilex [Nicotine Lozenge] 2 mg BC AD PRN 07/01/17 [History] Omeprazole [PriLOSEC] 20 mg PO BIDAC 07/01/17 [History] Oseltamivir [Tamiflu] 75 mg PO BID 07/01/17 [History] Oxycodone HCl/Acetaminophen [Percocet 10-325 mg Tablet] 1 each PO Q6H PRN [History] Tiotropium [place] [Spiriva Respimat] 2 puff IH DAILY 07/01/17 [History] Venlafaxine XR (24 HR) [Effexor XR] 37.5 mg PO DAILY 07/01/17 [History] glipiZIDE [Glipizide] 10 mg PO BID 07/01/17 [History] guaiFENesin [Guaifenesin] 400 mg PO Q12H 07/01/17 [History] hydroCHLOROthiazide [Hydrochlorothiazide] 25 mg PO DAILY 07/01/17 [History] 3 Allergy/AdvReac Type Severity Reaction Status Date / Time No Known Allergies Allergy Verified 06/12/17 06:54 Review of Systems All systems PM: A 10-system review of systems was performed and is negative for pertinent findings except as documented above in the HPI. General Surgery Exam Initial Vital Signs Temp Pulse Resp BP Pulse Ox 97.7 F 119 18 115/60 85 07/01/17 19:13 07/01/17 19:13 07/01/17 19:13 07/01/17 19:13 07/01/17 19:13 Exam Initial Vital Signs Temp Pulse Resp BP Pulse Ox 97.7 F 119 18 115/60 85 07/01/17 19:13 07/01/17 19:13 07/01/17 19:13 07/01/17 19:13 07/01/17 19:13 Results - Labs 07/05/17 08:54 07/05/17 08:54 Abnormal lab results WBC 13.7 K/mcL (4.3-11.1) H 07/05/17 08:54 Plt Count 432 K/mcL (140-400) H 07/05/17 08:54 Immature Gran % 4.1 % (0-4) H 07/05/17 08:54 Band Neutrophils % 6.0 % (0-4) H 07/04/17 07:06 Metamyelocytes % 4.0 % (0) H 07/01/17 19:46 Neutrophils # 10.6 K/mcL (1.6-8.9) H 07/05/17 08:54 Nucleated RBCs/100 WBC 0.1 /100 WBC (0) H 07/05/17 08:54 Reactive Lymphocytes Present (Not Present) A 07/02/17 03:21 Toxic Granulation Present (Not Present) A 07/02/17 03:21 Glucose 165 mg/dL (70-105) H 07/05/17 08:54 POC Glucose 102 (58-89) H 07/04/17 21:01 AST 57 Units/L (13-39) H 07/01/17 19:46 Albumin 3.1 g/dL (3.5-5.7) L 07/01/17 19:46 Globulin 4.0 g/dL (2.4-3.5) H 07/01/17 19:46 Albumin/Globulin Ratio 0.8 (1.1-2.2) L 07/01/17 19:46 Urine Clarity Turbid (Clear) A 07/01/17 20:10 Ur Specific [place] 1.028 (1.010-1.025) H 07/01/17 20:10 Urine Protein 30 mg/dL (Neg-Trace) H 07/01/17 20:10 Urine Bilirubin Small (Negative) H 07/01/17 20:10 Urine Microscopic WBC 15-30 per hpf (0-3) H 07/01/17 20:10 Ur Squamous Epith Cells Many per lpf (None-Few) H 07/01/17 20:10 Amorphous Sediment Moderate (Few) H 07/01/17 20:10 Hyaline Casts Moderate per lpf (None-Few) H 07/01/17 20:10 Diabetes panel 07/05/17 Range/Units 08:54 Sodium 136 (136-145) mEq/L Potassium 4.4 (3.5-5.1) mEq/L Chloride 101 (98-107) mEq/L Carbon Dioxide 27 (23-29) mEq/L BUN 11 (8-23) mg/dL Creatinine 0.70 (0.70-1.30) mg/dL Glucose 165 H (70-105) mg/dL Calcium 9.0 (8.6-10.3) mg/dL Calcium panel 07/05/17 Range/Units 08:54 Calcium 9.0 (8.6-10.3) mg/dL Pituitary panel 07/05/17 Range/Units 08:54 Sodium 136 (136-145) mEq/L Potassium 4.4 (3.5-5.1) mEq/L Chloride 101 (98-107) mEq/L Carbon Dioxide 27 (23-29) mEq/L BUN 11 (8-23) mg/dL Creatinine 0.70 (0.70-1.30) mg/dL Glucose 165 H (70-105) mg/dL Calcium 9.0 (8.6-10.3) mg/dL Adrenal panel 07/05/17 Range/Units 08:54 Sodium 136 (136-145) mEq/L Potassium 4.4 (3.5-5.1) mEq/L Chloride 101 (98-107) mEq/L Carbon Dioxide 27 (23-29) mEq/L BUN 11 (8-23) mg/dL Creatinine 0.70 (0.70-1.30) mg/dL Glucose 165 H (70-105) mg/dL Calcium 9.0 (8.6-10.3) mg/dL All other labs normal. Consult Discharge Plan - Plan [facility]: [facility] [Primary Care Provider] -
[2017-07-05] MEDS: GuaiFENesin Liq 200 MG/10 ML UDC PO SCH ×2 (11:43→20:31)
[2017-07-05] MEDS: MetroNIDAZOLE 500 MG/100 ML 500 MG/100 ML BAG IVPB SCH ×3 (11:44→23:04)
[2017-07-05] MEDS: *HR* Morphine 2 MG/ML SYRINGE IVP PRN ×2 (18:26→22:46)
[2017-07-05] MEDS ORDERED: 0.9 % Sodium Chloride 1,000 ML IVC SCH (20:30)
[2017-07-05] MEDS: cefTRIAXone 2,000 MG in Water for inj. (sterile) 20 ML IVP SCH (20:40)
[2017-07-05] MEDS: Azithromycin 500 MG in D5% in Water 250 ML IVPB SCH (22:53)
[2017-07-05] MEDS: Insulin DETEMIR 100 UNIT/ML X5UNITS SQ SCH (23:40)
[2017-07-05] MEDS ORDERED: Insulin DETEMIR 100 UNIT/ML X5UNITS SQ ONE (23:45)
[2017-07-06] MEDS: Insulin LISPRO 300 UNITS/3 ML VIAL SQ SCH ×4 (00:12→18:19)
[2017-07-06] MEDS: *HR* Morphine 2 MG/ML SYRINGE IVP PRN ×6 (02:32→22:09)
[2017-07-06] MEDS ORDERED: Furosemide 20 MG/2 ML VIAL IVP ONE (02:48)
[2017-07-06] MEDS: MetroNIDAZOLE 500 MG/100 ML 500 MG/100 ML BAG IVPB SCH ×4 (05:36→22:10)
[2017-07-06] MEDS: *HR* Enoxaparin 40 MG/0.4 ML SYRINGE SQ SCH (05:44)
[2017-07-06] MEDS: Loratadine 10 MG TABLET PO SCH (09:58)
[2017-07-06] MEDS: amLODIPine 5 MG TABLET PO SCH (09:58)
[2017-07-06] MEDS: Aspirin Enteric Coated 81 MG Tablet PO SCH (09:58)
[2017-07-06] MEDS: Venlafaxine XR (24 HR) 37.5 MG CAP.ER.24H PO SCH (09:58)
[2017-07-06] MEDS: GuaiFENesin Liq 200 MG/10 ML UDC PO SCH ×2 (09:58→20:25)
[2017-07-06] MEDS: Nystatin SUSP 5 ML UD.LIQ PO SCH ×4 (09:58→20:25)
[2017-07-06] MEDS: Nicotine 14 MG PATCH.TD24 TD SCH (10:04)
--- NOTE | 2017-07-06 11:04 | General Surgery Progress Note ---
Date of Encounter: 07/06/17 Time of Encounter: 10:59 Subjective Patient reports: feels better Narrative: General Surgery - patient feeling better; abdominal pain diminished/resolved Patient describes large BM earlier today The patient remains afebrile, HR 93, RR 16-18 unlabored; BP 149/77. Still requires 3 L/min supplement oxygen via nasal cannula for SpO2 94% Lungs clear bilaterally Abd protuberant but non tender; rare bowel sounds. NG output - 1000 bilious fluid recorded Laboratories: No new laboratories obtained today Impression: 72-year-old male with COPD recently diagnosed with flu admitted to [facility] with progression to pneumonia. Patient also with abdominal distention, nausea and vomiting related to either an ileus versus small bowel obstruction. Radiologic evidence of inflammation terminal ileum and proximal colon - terminal ileitis/colitis Patient has responded to NG decompression and addition of metronidazole to the current antibiotic regimen - abdominal pain resolved, distention diminished. No further nausea vomiting Plan: Remove NG tube and keep nothing by mouth Check acute abdominal series Objective Vital Signs - Last 8 Hours Temp Pulse Resp BP Pulse Ox 07/06/17 07:13 98.3 F 93 16 149/77 94 07/06/17 04:49 98.8 F 94 18 132/75 94 07/06/17 04:25 18 93 Intake and Output 07/05/17 07/06/17 07/06/17 23:59 07:59 15:59 Intake Total 600 / 600 350 / 350 Output Total 500 / 500 950 / 950 Balance 100 / 100 -600 / -600 Intake: IV Fluids 600 / 600 350 / 350 0.9 % Sodium Chloride 1,000 ML 250 / 250 @ 75 mls/hr IVC .[id number] [facility] Rx #:[id number] KCl 20 mEq in 0.9% Sodium 500 / 500 Chloride 20 meq In 1,000 ml @ 100 mls/hr IVC .Q10H [facility] Rx#: [id number] Flagyl Premix 500 MG/100 ML 500 100 / 100 100 / 100 mg In 100 ml @ 100 mls/hr IVPB Q6H [facility] Rx#:[id number] Output: Urine 500 / 500 500 / 500 Gastric Drainage 450 / 450 Other: Weight 102.33 kg Blood Glucose* 185 167 Patient Weight 07/06/17 23:59 Weight 102.33 kg - Labs 07/05/17 08:54 07/05/17 08:54 Consult Discharge Plan - Plan [facility]errals: [facility] [Primary Care Provider] -
--- NOTE | 2017-07-06 13:24 | Internal Med Progress Note ---
Date of Encounter: 07/06/17 Time of Encounter: 13:24 - Assessment and plan (1) PNA (pneumonia) Current Visit: Yes Status: Acute Assessment and plan: Influenza infection with Pneumonia like assoctiated with S. pneumo. Pneumococcal Urinary Ag positive. Continue Rocephin and azithromycin. DuoNebs held temporarily because patient c/o that they make his abdomen hurt more? Clinically improved. Qualifiers: Pneumonia type: due to unspecified organism Laterality: unspecified laterality Lung location: unspecified part of lung Qualified Code(s): J18.9 - Pneumonia, unspecified organism (2) Influenza Current Visit: Yes Status: Acute Assessment and plan: Today is day 5 of Tamiflu which will be d/c'd. Continue supportive care. (3) Diarrhea Current Visit: Yes Status: Resolved Qualifiers: Diarrhea type: unspecified type Qualified Code(s): R19.7 - Diarrhea, unspecified (4) Dehydration Current Visit: Yes Status: Acute Assessment and plan: Dehydration now resolved. IVF's discontinued due to mild fluid overload. (5) Acute kidney injury Current Visit: Yes Status: Acute Assessment and plan: Associated with N/V and Diarrhea. Resolving. IVFs d/c'd due to developing fluid overload. . (6) Ileus, unspecified Current Visit: Yes Status: Acute Assessment and plan: Continue NPO staus but NGT removed. Restart some medications (cardiac). Code(s): K56.7 - Ileus, unspecified - Subjective Interval history: 72 yr old man with Influenza and CAP. His Pneumococcal urinary antigen was found to be positive. He was started on Rocephin and Azithromycin. He developed and ileus so he was made NPO and a NGT was placed. Today the NGT was removed and some of his cardiac medications (aspirin and Plavix) were restarted. He's still NPO. Surgery's assistance is appreciated. He continues to improve clinically. His IVFs were d/c'd because he was sounding fluid over loaded. - Constitutional Vitals: Temp Pulse Resp BP Pulse Ox 97.9 F 82 16 146/75 95 07/06/17 11:04 07/06/17 11:04 07/06/17 11:04 07/06/17 11:04 07/06/17 11:04 General appearance: Present: cooperative, A&O X 3, pleasant, answers questions appropriately - Head Head exam: Present: atraumatic, normocephalic - Eye Eye exam: Present: PERRL, conjuntiva pink, sclera anicteric Pupils: Present: PERRL - Neck Neck exam general surgery: Present: supple, trachea midline. Absent: lymphadenopathy - Respiratory Respiratory exam: Present: CTAB. Absent: accessory muscle use, rales, rhonchi, wheezes Additional comments: His Lungs sound clear except fine rales at both bases. - Cardiovascular Cardiovascular exam: Present: RRR, +S1, +S2. Absent: diastolic murmur, gallop, rubs, systolic murmur - GI/Abdominal GI/Abdominal exam: Present: normal bowel sounds, soft, no peritoneal signs. Absent: distended, firm, guarding, tenderness - Extremities Exam Extremities exam: Present: warm, radial pulses palpable and symmetrical. Absent : calf tenderness, cyanotic, pedal edema - Neurological Exam Neurological exam: Present: CN II-XII intact, oriented X3, no focal deficits. Absent: pronater drift, facial droop, speech deficit - Skin Skin exam: Present: dry, intact Internal Medicine: Result - Labs CBC & Chem 7: 07/05/17 08:54 07/05/17 08:54 - Impressions Impressions Abdomen/Pelvis CT 07/04/17 17:48 IMPRESSION: 1. Interval development of multiple dilated fluid-filled small bowel loops with marked gastric distention. Transition at the level of the terminal ileum. The findings may be related to a severe ileus versus a partial or intermittent obstruction. Persistent edema within the terminal ileum and proximal colon consistent with an infectious or inflammatory process . 2. Re-demonstration of patchy multifocal pneumonia at the lung bases. More focal ground-glass opacification at the right middle lobe. D/ / 07/04/2017 19:15:11 Neo Mcmahan MD / [email or web address] Interpreting Provider: Neo Mcmahan MD Chest/Abdomen X-ray 07/06/17 10:55 IMPRESSION: 1. Improving with residual multiple dilated loops of small bowel. 2. Unchanged bilateral airspace disease. D/ / Didier Hernández MD / Didier Hernández MD Interpreting Provider: Didier Hernández MD Consult Discharge Plan - Plan [facility]errals: [facility] [Primary Care Provider] -
[2017-07-06] MEDS: cefTRIAXone 2,000 MG in Water for inj. (sterile) 20 ML IVP SCH (20:27)
[2017-07-06] MEDS: Insulin DETEMIR 100 UNIT/ML X5UNITS SQ SCH (20:40)
[2017-07-06] MEDS: Azithromycin 500 MG in D5% in Water 250 ML IVPB SCH (22:09)
[2017-07-07] MEDS: Insulin LISPRO 300 UNITS/3 ML VIAL SQ SCH ×4 (00:48→17:54)
[2017-07-07] MEDS: *HR* Morphine 2 MG/ML SYRINGE IVP PRN ×6 (02:30→20:58)
[2017-07-07] MEDS: MetroNIDAZOLE 500 MG/100 ML 500 MG/100 ML BAG IVPB SCH ×4 (05:32→23:08)
[2017-07-07] MEDS: *HR* Enoxaparin 40 MG/0.4 ML SYRINGE SQ SCH (05:33)
[2017-07-07] MEDS: Loratadine 10 MG TABLET PO SCH (08:15)
[2017-07-07] MEDS: Nystatin SUSP 5 ML UD.LIQ PO SCH ×4 (08:15→20:52)
[2017-07-07] MEDS: Venlafaxine XR (24 HR) 37.5 MG CAP.ER.24H PO SCH (08:15)
[2017-07-07] MEDS: Nicotine 14 MG PATCH.TD24 TD SCH (08:15)
[2017-07-07] MEDS: GuaiFENesin Liq 200 MG/10 ML UDC PO SCH ×2 (08:16→23:07)
[2017-07-07] MEDS: Aspirin Enteric Coated 81 MG Tablet PO SCH (08:25)
[2017-07-07] MEDS: amLODIPine 5 MG TABLET PO SCH (08:26)
--- NOTE | 2017-07-07 09:18 | Internal Med Progress Note ---
Date of Encounter: 07/07/17 Time of Encounter: 09:16 - Assessment and plan (1) Influenza Current Visit: Yes Status: Ruled-out Assessment and plan: Patient was diagnosed with possible flu at the [facility], and he has been having symptoms for a few days prior to that. No testing for rapid influenza antigen was completed. Has not received Tamiflu here due to being nothing by mouth. Will hold off on further Tamiflu at this time. (2) Acute kidney injury Current Visit: Yes Status: Resolved Assessment and plan: Likely secondary to GI losses from diarrhea and dehydration. Resolved with IV hydration. (3) PNA (pneumonia) Current Visit: Yes Status: Acute Assessment and plan: Improved. Continue IV Rocephin and azithromycin-day 6, to complete a seven-day course of antibiotics. 2 sets of blood cultures remain negative. Urine streptococcal pneumonia antigen positive. Continue supportive care and supplemental oxygen. Patient has been qualified for home oxygen. Qualifiers: Pneumonia type: due to unspecified organism Laterality: unspecified laterality Lung location: unspecified part of lung Qualified Code(s): J18.9 - Pneumonia, unspecified organism (4) DMII (diabetes mellitus, type 2) Current Visit: Yes Status: Chronic Assessment and plan: Blood sugars noted to be well controlled. Continue Accu-Chek blood glucose monitoring with basal bolus insulin regimen. Currently nothing by mouth. Qualifiers: Diabetes mellitus complication status: without complication Diabetes mellitus salvage determiner insulin use: with salvage determiner use Qualified Code(s): E11.9 - Type 2 diabetes mellitus without complications; Z79.4 - [facility] (current) use of insulin; Z79.4 - salvage determiner (current) use of insulin; Z79.4 - [facility] ( current) use of insulin; Z79.4 - salvage determiner (current) use of insulin (5) HTN (hypertension) Current Visit: Yes Status: Chronic Assessment and plan: Blood pressure noted to be slightly elevated, prior to morning medications. Continue home medications and monitor closely. Qualifiers: Hypertension type: essential hypertension Qualified Code(s): I10 - Essential (primary) hypertension (6) Ileus, unspecified Current Visit: Yes Status: Acute Assessment and plan: Noted to have nausea and abdominal distention with abdominal x-ray showing possible ileus. Surgery is on board, will follow recommendations. Nasogastric tube has been discontinued and patient is comfortable at this time. Has been on bowel rest and IV hydration. We will possibly start clear liquids today. (7) COPD (chronic obstructive pulmonary disease) Current Visit: Yes Status: Chronic Qualifiers: COPD type: unspecified COPD Qualified Code(s): J44.9 - Chronic obstructive pulmonary disease, unspecified - Subjective Interval history: Feels better; improving diarrhea; no cough, shortness of breath, fever/chills; improved abdominal pain and distension; off NG tube now; no nausea or vomiting; able to ambulate by self; - Constitutional Vitals: Temp Pulse Resp BP Pulse Ox 97.4 F L 83 18 142/70 98 07/07/17 08:21 07/07/17 08:21 07/07/17 08:21 07/07/17 08:21 07/07/17 08:48 General appearance: Present: cooperative, A&O X 3, pleasant, answers questions appropriately - Respiratory Respiratory exam: Present: CTAB, wheezes (right basal rhonchi and wheezing). Absent: accessory muscle use, rales, rhonchi - Cardiovascular Cardiovascular exam: Present: RRR, +S1, +S2. Absent: diastolic murmur, gallop, rubs, systolic murmur - GI/Abdominal GI/Abdominal exam: Present: diminished bowel sounds, distended, normal bowel sounds, soft, no peritoneal signs. Absent: tenderness - Extremities Exam Extremities exam: Present: full ROM, pedal edema (trace ), warm, radial pulses palpable and symmetrical. Absent: calf tenderness, cyanotic Internal Medicine: Result - Labs CBC & Chem 7: 07/05/17 08:54 07/05/17 08:54 - Impressions Impressions Abdomen/Pelvis CT 07/04/17 17:48 IMPRESSION: 1. Interval development of multiple dilated fluid-filled small bowel loops with marked gastric distention. Transition at the level of the terminal ileum. The findings may be related to a severe ileus versus a partial or intermittent obstruction. Persistent edema within the terminal ileum and proximal colon consistent with an infectious or inflammatory process . 2. Re-demonstration of patchy multifocal pneumonia at the lung bases. More focal ground-glass opacification at the right middle lobe. D/ / 07/04/2017 19:15:11 Neo Mcmahan MD / [email or web address] Interpreting Provider: Neo Mcmahan MD Chest/Abdomen X-ray 07/06/17 10:55 IMPRESSION: 1. Improving with residual multiple dilated loops of small bowel. 2. Unchanged bilateral airspace disease. D/ / Didier Hernández MD / Didier Hernández MD Interpreting Provider: Didier Hernández MD Consult Discharge Plan - Plan [facility]errals: [facility] [Primary Care Provider] -
--- NOTE | 2017-07-07 13:41 | General Surgery Progress Note ---
Date of Encounter: 07/07/17 Time of Encounter: 13:36 Subjective Patient reports: feels better Narrative: General Surgery - patient feeling well, denies any abd pain. No N/V Patient continues to be afebrile, currently 97.7, pulse 69, respirations 17, blood pressure 145/74 Abdomen: Soft, nontender. No obvious intra-abdominal masses. No rebound. Active bowel sounds Patient moving bowels - diarrhea but this is likely mobilization of the small bowel fluid that accumulated related to this patient's ileus or small bowel obstruction Acute abdominal series demonstrates resolution of the small bowel distention ; there is air in the colon. These findings are most consistent with an ileus. Impression: 72-year-old male with COPD recently diagnosed with the flu, admitted to [facility] with progression to pneumonia. Pneumonia has improved Abdominal distention, nausea, and vomiting resolved with radiologic findings most consistent with an ileus which is resolving CT findings of inflammation terminal ileum and proximal colon (terminal ileitis/colitis)- improved with apparent response to antibiotic therapy Recommendations: Allow full liquids; may advance diet as tolerated Continue antibiotics, converting from IV to oral, to address both the pneumonia and the radiologic evidence of terminal ileitis/colitis Consider colonoscopy in 4-6 weeks following resolution of the patient's pneumonia and bowel inflammation Unless the patient has recurrent symptoms, I will sign off. Thank you for this consultation. Call if needed. Objective Vital Signs - Last 8 Hours Temp Pulse Resp BP Pulse Ox 07/07/17 11:56 97.7 F 69 17 145/74 94 07/07/17 10:14 18 97 07/07/17 08:48 98 07/07/17 08:21 97.4 F L 83 18 142/70 98 07/07/17 05:56 97.4 F L 90 20 165/77 88 Intake and Output 07/06/17 07/07/17 07/07/17 23:59 07:59 15:59 Intake Total 200 / 200 100 / 100 Balance 200 / 200 100 / 100 Intake: IV Fluids 200 / 200 100 / 100 Flagyl Premix 500 MG/100 ML 500 200 / 200 100 / 100 mg In 100 ml @ 100 mls/hr IVPB Q6H [facility] Rx#:[id number] Other: Stool Size Small Stool Consistency liquid Stool Color Brown # Bowel Movements 1 Weight 99.065 kg Blood Glucose* 119 123 133 Patient Weight 07/07/17 23:59 Weight 99.065 kg - Labs 07/05/17 08:54 07/05/17 08:54 Consult Discharge Plan - Plan Referrals: [facility] [Primary Care Provider] -
[2017-07-07] MEDS: cefTRIAXone 2,000 MG in Water for inj. (sterile) 20 ML IVP SCH (20:52)
[2017-07-07] MEDS: Insulin DETEMIR 100 UNIT/ML X5UNITS SQ SCH (20:58)
[2017-07-07] MEDS ORDERED: Insulin LISPRO 300 UNITS/3 ML VIAL SQ SCH (21:00)
[2017-07-07] MEDS: Azithromycin 500 MG in D5% in Water 250 ML IVPB SCH (23:09)
[2017-07-08] MEDS: *HR* Morphine 2 MG/ML SYRINGE IVP PRN ×3 (00:10→08:39)
[2017-07-08] MEDS: *HR* Enoxaparin 40 MG/0.4 ML SYRINGE SQ SCH (05:17)
[2017-07-08] MEDS: MetroNIDAZOLE 500 MG/100 ML 500 MG/100 ML BAG IVPB SCH (05:18)
[2017-07-08] MEDS: Insulin LISPRO 300 UNITS/3 ML VIAL SQ SCH ×2 (08:06→12:53)
--- NOTE | 2017-07-08 09:09 | Discharge Summary ---
Date of Encounter: 07/09/17 Time of Encounter: 09:07 - Discharge Diagnosis (1) Influenza Priority: Primary Status: Ruled-out (2) Acute kidney injury Priority: Primary Status: Resolved (3) PNA (pneumonia) Priority: Primary Status: Acute Qualifiers: Pneumonia type: due to unspecified organism Laterality: unspecified laterality Lung location: unspecified part of lung Qualified Code(s): J18.9 - Pneumonia, unspecified organism (4) DMII (diabetes mellitus, type 2) Priority: Secondary Status: Chronic Qualifiers: Diabetes mellitus complication status: without complication Diabetes mellitus alf insulin use: with alf use Qualified Code(s): E11.9 - Type 2 diabetes mellitus without complications; Z79.4 - group home (current) use of insulin; Z79.4 - group home (current) use of insulin; Z79.4 - group home ( current) use of insulin; Z79.4 - long term care phlebotomist (current) use of insulin (5) HTN (hypertension) Priority: Secondary Status: Chronic Qualifiers: Hypertension type: essential hypertension Qualified Code(s): I10 - Essential (primary) hypertension (6) Ileus, unspecified Priority: Primary Status: Acute - Discharge Medications Prescriptions: levoFLOXacin [Levaquin] 500 mg PO DAILY #3 tablet Home Medications: Albuterol Sulfate [Ventolin Hfa] 2 puff IH Q6H PRN 06/12/17 [History] Amlodipine Besylate 10 mg PO DAILY 06/12/17 [History] Aspirin [Lo-Dose Aspirin EC] 81 mg PO DAILY 06/12/17 [History] Atorvastatin [Lipitor] 40 mg PO HS 06/12/17 [History] Calcium Carb/Vitamin D3/Vit K1 [Calcium + D Soft Chewable Tab] 1 each PO BID [History] Clopidogrel [Plavix] 75 mg PO DAILY #30 tablet 06/12/17 [Rx] Lisinopril [Zestril] 40 mg PO DAILY 06/12/17 [History] Metformin HCl [Glucophage] 1,000 mg PO BID 06/12/17 [History] Albuterol Neb [Proventil Neb] 2.5 mg IH Q8H PRN 07/01/17 [History] Benzonatate [Tessalon] 100 mg PO Q6H PRN 07/01/17 [History] Budesonide/Formoterol 160/4.5 [Symbicort 160/4.5] 2 puff IH BIDR 07/01/17 [ History] Carboxymethylcellulose Sodium [Refresh Liquigel] 1 drop OP TID 07/01/17 [History ] Cetirizine HCl [Zyrtec] 10 mg PO DAILY 07/01/17 [History] Cyanocobalamin (Vitamin B-12) [Vitamin B12] 1,000 mcg PO DAILY 07/01/17 [History ] GuaiFENesin/Dextromethorphan [Tussin Dm Syrup] 10 ml PO Q4H PRN 07/01/17 [ History] Insulin Glargine [Lantus] 34 unit SQ HS 07/01/17 [History] Mag Hydrox/Al Hydrox/Simeth [Antacid Suspension] 15 ml PO TIDAC 07/01/17 [ History] Nicotine Patch [Nicoderm] 7 mg TD DAILY 07/01/17 [History] Nicotine Polacrilex [Nicotine Lozenge] 2 mg BC AD PRN 07/01/17 [History] Omeprazole [PriLOSEC] 20 mg PO BIDAC 07/01/17 [History] Oxycodone HCl/Acetaminophen [Percocet 10-325 mg Tablet] 1 each PO Q6H PRN [History] Tiotropium [place] [Spiriva Respimat] 2 puff IH DAILY 07/01/17 [History] Venlafaxine XR (24 HR) [Effexor Xr] 37.5 mg PO DAILY 07/01/17 [History] glipiZIDE [Glipizide] 10 mg PO BID 07/01/17 [History] guaiFENesin [Guaifenesin] 400 mg PO Q12H 07/01/17 [History] hydroCHLOROthiazide [Hydrochlorothiazide] 25 mg PO DAILY 07/01/17 [History] levoFLOXacin [Levaquin] 500 mg PO DAILY #3 tablet 07/08/17 [Rx] Allergies/Adverse Reactions: 3 Allergy/AdvReac Type Severity Reaction Status Date / Time No Known Allergies Allergy Verified 06/12/17 06:54 Date of admission: 07/01/17 22:47 [facility] care physician[facility] Consults: 07/05/17 10:03 Consult to Physician [CONS] Routine Consulting Provider: Carlton Ryder Reason for Consult: Small bowel obstruction Time Notified: 08:30 Call Completed: Yes - Patient Status Disposition: Home, Self-Care Condition: Fair Overall status at discharge: patient is progressing back to baseline - Discharge Instructions Follow Up With: Carlton Ryder MD [Non-Partnered Physician] - (2 weeks- Please call and schedule a hospital follow up) [place],PCP [Primary Care Provider] - 07/14/17 11:15 am - Diet and Activity Activity: resume usual activities as tolerated Diet: diabetic diet Hospital course: Mr. Walker is a 72 year old male who present with diarrhea and progressive SOB. He apparently was diagnosed with the flu a few days prior to that at the [place] and was started on Tamiflu. This time around he presented in his workup showed community-acquired pneumonia. He was continued on Tamiflu for a couple days to finish 5 days total. He was started on IV antibiotics. He was switched to oral Levaquin to finish her course of treatment for community acquired pneumonia. On initial presentation patient showed signs of enteritis/ gastroenteritis and that resolved. Later he stated he developed significant abdominal distention. His workup including x-rays of the abdomen as well as CT abdomen and pelvis showed findings of possible small bowel obstructions/ileus. An NG tube was placed and surgery was involved with the patient. He was treated conservatively. NG tube was removed and he was able to tolerate diet as it was advanced slowly. The patient was eventually discharged on the above antibiotics as I mentioned. He will follow up with surgery as well. - Time Spent with Patient Total time spent providing and/or coordinating discharge services: Greater than 30 minutes - Constitutional Vitals: Temp Pulse Resp BP Pulse Ox 98.0 F 81 17 124/75 98 07/08/17 07:34 07/08/17 07:34 07/08/17 07:34 07/08/17 07:34 07/08/17 07:34 General appearance: Present: cooperative, A&O X 3, pleasant, answers questions appropriately Exam: GEN: NAD CVS: RRR. S1, S2, No m/r/g RESP: Diminished ABD: Soft, NT, ND, +BS EXT: No edema. 2+ DP. No rashes NEURO: Nonfocal
[2017-07-08 09:16] LABS: Basophils % 0.4 %; Eosinophils # 0.3 K/mcL (0.0-0.6); Hematocrit 33.8 % (37.5-50.1); Immature Granulocytes % 2.2 % (0-4); Immature Platelets 2.2 % (1.1-6.1); Lymphocytes # 2.2 K/mcL (0.6-4.6); Lymphocytes % 23.4 %; Mean Corpuscular HGB Conc 31.7 g/dL (31.6-35.5); Mean Corpuscular Hemoglobin 28.1 pg (28.0-33.3); Mean Corpuscular Volume 88.7 fL (83.0-100.0); Mean Platelet Volume 9.3 fL (9.4-12.4); Monocytes # 0.6 K/mcL (0.0-1.3); Monocytes % 6.7 %; Platelet Count 435 K/mcL (140-400); Red Blood Count 3.81 M/mcL (4.19-5.50); Red Cell Distribution Width 13.5 % (11.5-14.5); Segmented Neutrophils % 64.3 %
[2017-07-08 09:28] LABS: Hemoglobin 10.7 g/dL (12.9-16.9)
[2017-07-08 09:33] LABS: BUN/Creatinine Ratio 11 (6-26); Blood Urea Nitrogen 7 mg/dL (8-23); Calcium 7.9 mg/dL (8.6-10.3); Carbon Dioxide 29 mEq/L (23-29); Chloride 105 mEq/L (98-107); Glucose 128 mg/dL (70-105); Osmolality,Calculated 286 (280-300); Potassium 3.6 mEq/L (3.5-5.1); Sodium 138 mEq/L (136-145); eGFR For African Americans > 60 (> 60); eGFR For Non-African Americans > 60 (> 60)
[2017-07-08] MEDS ORDERED: *HR* OxyCODONE/APAP 5/325 TABLET PO PRN (12:31)
[2017-07-08] MEDS: GuaiFENesin Liq 200 MG/10 ML UDC PO SCH (12:53)
[2017-07-08] MEDS: amLODIPine 5 MG TABLET PO SCH (12:53)
[2017-07-08] MEDS: Venlafaxine XR (24 HR) 37.5 MG CAP.ER.24H PO SCH (12:54)
[2017-07-08] MEDS: Loratadine 10 MG TABLET PO SCH (12:54)
[2017-07-08] MEDS: Nicotine 14 MG PATCH.TD24 TD SCH (12:54)
[2017-07-08] MEDS: Nystatin SUSP 5 ML UD.LIQ PO SCH (12:55)
[2017-07-08] MEDS: Aspirin Enteric Coated 81 MG Tablet PO SCH (12:55)
[2017-07-08] MEDS ORDERED: metroNIDAZOLE 500 MG TABLET PO SCH (13:00)
[2017-07-08 16:11] VITALS: BP 129/67
[2017-07-09 13:27] LABS: Ova & Parasite Stain NEGATIVE (Negative)
== END 2017-07-08 17:34 | disposition home or self-care (01) | DRG 194 ==
LOC: 2ANU 19:11 → EMEROO 19:11 → 2ANU 22:55
PROVIDERS: ADMIT Internal Medicine Hematology & Oncology; ATTEND Internal Medicine

== ENCOUNTER 2017-07-29 15:42 | Inpatient (IN) ==
--- NOTE | 2017-07-29 15:55 | Emergency Department Note ---
Disposition Clinical Impression: Lactic acidosis, Acute kidney injury Abdominal pain Qualifiers: Abdominal location: generalized Qualified Code(s): R10.84 - Generalized abdominal pain Disposition: Home, Self-Care Condition: Fair [facility] Care Provider[facility] - Forms: ED Satisfaction Letter, Work/School Release Time of Disposition: 19:52 Abdominal Pain HPI - General Chief Complaint: ED Abdominal Pain Stated Complaint: abd pain Time Seen by Provider: 07/29/17 15:55 Source: patient Mode of arrival: ambulatory Limitations: no limitations Nursing Notes Reviewed: Yes Vital Signs Reviewed: Yes - History of Present Illness HPI Narrative: 72-year-old male history of COPD, peripheral vascular disease presents complaining of 7 out of 10 abdominal pain. Patient states that he has been having pain since last left the hospital about 2 weeks ago, was previously that he had an ileus. Patient went to the [place] urgent care today and they performed an ultrasound of his gallbladder which showed some mild wall thickening, after that they decided to come into the emergency department to be evaluated. Patient reports nausea but no emesis, has had some loose stool but denies hematochezia or melena Pt Subjective Complaint: abdominal pain Consistency: intermittent Location: diffuse Pain Severity: severe Pain Scale: 7 Radiation: none Improves with: nothing Worsens with: nothing Associated symptoms: Reports: nausea. Denies: vomiting, diarrhea, fever, chills - Related Data Home Medications Medication Instructions Recorded Confirmed Albuterol Sulfate [Ventolin Hfa] 2 puff IH Q6H PRN 06/12/17 07/29/17 Aspirin [Lo-Dose Aspirin EC] 81 mg PO DAILY 06/12/17 07/29/17 Atorvastatin [Lipitor] 40 mg PO HS 06/12/17 07/29/17 Calcium Carb/Vitamin D3/Vit K1 1 each PO BID 06/12/17 07/29/17 [Calcium + D Soft Chewable Tab] Lisinopril [Zestril] 40 mg PO DAILY 06/12/17 07/29/17 Metformin HCl [Glucophage] 1,000 mg PO BID 06/12/17 07/29/17 Albuterol Neb [Proventil Neb] 2.5 mg IH Q8H PRN 07/01/17 07/29/17 Benzonatate [Tessalon] 100 mg PO Q6H PRN 07/01/17 07/29/17 Budesonide/Formoterol 160/4.5 2 puff IH BIDR 07/01/17 07/29/17 [Symbicort 160/4.5] Carboxymethylcellulose Sodium 1 drop OP TID 07/01/17 07/29/17 [Refresh Liquigel] Cetirizine HCl [Zyrtec] 10 mg PO DAILY 07/01/17 07/29/17 Cyanocobalamin (Vitamin B-12) 1,000 mcg PO DAILY 07/01/17 07/29/17 [Vitamin B12] GuaiFENesin/Dextromethorphan 10 ml PO Q4H PRN 07/01/17 07/29/17 [Tussin Dm Syrup] Insulin Glargine [Lantus] 34 unit SQ HS 07/01/17 07/29/17 Mag Hydrox/Al Hydrox/Simeth 15 ml PO TIDAC 07/01/17 07/29/17 [Antacid Suspension] Nicotine Patch [Nicoderm] 7 mg TD DAILY 07/01/17 07/29/17 Nicotine Polacrilex [Nicotine 2 mg BC AD PRN 07/01/17 07/29/17 Lozenge] Omeprazole [PriLOSEC] 20 mg PO BIDAC 07/01/17 07/29/17 Oxycodone HCl/Acetaminophen 1 each PO Q6H PRN 07/01/17 07/29/17 [Percocet 10-325 mg Tablet] Tiotropium [place] [Spiriva 2 puff IH DAILY 07/01/17 07/29/17 Respimat] Venlafaxine XR (24 HR) [Effexor Xr] 37.5 mg PO DAILY 07/01/17 07/29/17 glipiZIDE [Glipizide] 10 mg PO BID 07/01/17 07/29/17 guaiFENesin [Guaifenesin] 400 mg PO Q12H 07/01/17 07/29/17 hydroCHLOROthiazide 25 mg PO DAILY 07/01/17 07/29/17 [Hydrochlorothiazide] Ondansetron HCl [Zofran] 2 mg PO TID PRN 07/29/17 07/29/17 Ranitidine HCl [Zantac] 150 mg PO BID 07/29/17 07/29/17 amLODIPine [Norvasc] 5 mg PO DAILY 07/29/17 07/29/17 Previous Rx's Medication Instructions Recorded Clopidogrel [Plavix] 75 mg PO DAILY #30 tablet 06/12/17 Allergies Allergy/AdvReac Type Severity Reaction Status Date / Time No Known Allergies Allergy Verified 06/12/17 06:54 All systems ED: reviewed and negative except as stated. Review of Systems: As Per HPI Constitutional: Denies: fever Eyes: Denies: eye pain, eye discharge ENT ED: Denies: ear pain Cardiovascular: Denies: chest pain Gastrointestinal: Reports: abdominal pain, nausea, vomiting. Denies: diarrhea, constipation, hematemesis Genitourinary: Denies: urgency, dysuria Musculoskeletal: Denies: back pain Integumentary: Denies: rash Abdominal Pain PMH - Past Medical History Medical history: Reports: cancer, COPD, diabetes, hyperlipidemia, hypertension Male Surgical History: Reports: orthopedic, other, other Psychiatric history: Reports: no psych history - Social History Smoking status: Current every day smoker Alcohol use: Reports: rarely Drug use: Reports: none Physical Exam Constitutional: Mildly hypotensive blood pressure 87/53 HEENT: NCAT, sclera anicteric Neck: normal inspection, neck is supple, trachea midline Resp: normal chest inspection, CTA bilaterally, no resp distress CV: RRR, no m/g/r GI: normal inspection, Soft, diffuse guarding on exam, pain out of proportion to exam. Back: normal inspection, negative CVA bilaterally, no tenderness to palpation Neuro: A&O3, no gross motor or sensory deficits bilaterally MSK: normal inspection, bilateral UE and LE with normal ROM Skin: No rashes, skin warm, dry, intact - General Limitations: no limitations General appearance: alert, in no apparent distress Course Course Narrative: 72-year-old male with concerns for abdominal pain, a pain out of proportion to exam on his abdominal exam for me, mildly hypotense, will check basic lab work CBC BMP lactated blood cultures, plan for CT scan of the abdomen pelvis without contrast given that he has history of contrast reaction with all his medications , although this is not been completely evaluated. - Reevaluation(s) Reevaluation #1: After evaluation and consultation with general surgeon, the patient does live be seen by Dr. asencio he has not exam and lab work consistent with possible ischemic colitis with a lactate of 3.3 and acute kidney injury, the patient received a CTA of his abdomen and pelvis after discussion with the custom miller , given that this was her primary concern, there is moderate calcification of his inferior mesenteric with no clear signs of acute ischemic colitis. The patient will be admitted to the hospital service I spoke with will admit the patient, likely consultation with Dr. asencio tomorrow, patient is in no acute distress at this time after several several rounds fentanyl but still having moderate abdominal pain. His blood pressures improved After 2 L fluid bolus is now on maintenance 200 mL per hour, repeat lactate was ordered, patient removed the hospital service and serious condition going to 2A most likely. Time: 19:50 - Consultations Consultation #1: Patient was evaluated at the bedside at this time by Dr. Cook, we stressed concerns given elevated creatinine appears to be acute, acute renal failure lactic acidosis, leukocytosis patient has signs and symptoms as well as an abdominal exam consistent with possible ischemic colitis, we did get a noncontrast CT scan of abdomen that showed no evidence of vascular abnormality however is limited secondary to lack of IV contrast, given renal function, Dr. Cook suggests Olding off on further IV contrast imaging of the abdomen pelvis at this time he recommends repeat ultrasound gallbladder is obtained earlier today at [facility] and showed some mild wall thickening, after that we will call general surgeon back for likely admission. Consultation #2: After bedside evaluation by Dr. Cook, records were reviewed and showed that Dr. asencio was discharged patient in the hospital during his management for ileus, the patient's family was consulted, they stated that they would prefer to be with Dr. asencio's group, see previously seen the patient really has not done surgery on the patient. I did call Dr. Garcia to discuss the utility of doing a CT scan of abdomen and pelvis, prior to calling Dr. asencio he recommended to do the CTA of the abdomen and pelvis even in the setting of renal insufficiency and acute kidney injury due to the urgency for possible ischemic colitis. Recommendation was CTA per Electrolysis Engineer and did discuss with Dr Garcia and with radiologist Dr Roblero risks versus benefits discussed with patient prior to imaging. Vital Signs Temperature 97.5 F L 07/29/17 15:49 Pulse Rate 99 07/29/17 15:49 Respiratory Rate 18 07/29/17 15:49 Blood Pressure 87/59 07/29/17 15:49 O2 Sat by Pulse Oximetry 94 07/29/17 15:49 Temperature 97.5 F L 07/29/17 15:49 Pulse Rate 81 07/29/17 19:06 Respiratory Rate 18 07/29/17 19:06 Blood Pressure 111/72 07/29/17 19:06 O2 Sat by Pulse Oximetry 97 07/29/17 19:06 Oxygen Delivery Oxygen Delivery Room Air Abdominal Pain - Differential Diagnosis Differential Diagnosis: Likely: acute appendicitis, colonic obstruction, diverticulitis, diverticulosis, endometriosis, gastroenteritis - Medical Records Medical records reviewed: Yes I reviewed the patient's medical records. - Lab Data Lab results reviewed: Yes I reviewed the patient's lab results. Result diagrams: 07/29/17 16:50 07/29/17 16:50 Lab Results 07/29/17 07/29/17 07/29/17 Range/Units 16:50 16:50 16:50 WBC 13.1 H (4.3-11.1) K/mcL RBC 4.55 (4.19-5.50) M/mcL Hgb 12.7 L (12.9-16.9) g/dL Hct 39.6 (37.5-50.1) % MCV 87.0 (83.0-100.0) fL MCH 27.9 L (28.0-33.3) pg MCHC 32.1 (31.6-35.5) g/dL RDW 14.3 (11.5-14.5) % Plt Count 313 (140-400) K/mcL MPV 10.5 (9.4-12.4) fL Immature Gran % 0.7 (0-4) % Seg Neutrophils % 76.7 % Lymphocytes % 15.3 % Monocytes % 6.5 % Eosinophils % 0.2 % Basophils % 0.6 % Neutrophils # 10.1 H (1.6-8.9) K/mcL Lymphocytes # 2.0 (0.6-4.6) K/mcL Monocytes # 0.9 (0.0-1.3) K/mcL Eosinophils # 0.0 (0.0-0.6) K/mcL Basophils # 0.1 (0.0-0.2) K/mcL PT (9.4-12.1) Seconds INR APTT (26.0-36.0) Seconds Sodium 130 L (136-145) mEq/L Potassium 4.7 (3.5-5.1) mEq/L Chloride 96 L (98-107) mEq/L Carbon Dioxide 24 (23-29) mEq/L BUN 29 H (8-23) mg/dL Creatinine 2.30 H (0.70-1.30) mg/dL Est GFR ( Amer) 34 L (> 60) Est GFR (Non-Af Amer) 28 L (> 60) BUN/Creatinine Ratio 13 (6-26) Glucose 187 H (70-105) mg/dL Calculated Osmolality 281 (280-300) Lactic Acid 3.3 H (0.5-2.2) mmol/L Calcium 9.0 (8.6-10.3) mg/dL Total Bilirubin 0.5 (0.3-1.0) mg/dL Direct Bilirubin 0.1 (0.0-0.2) mg/dL Indirect Bilirubin 0.4 (0.0-1.2) mg/dL AST 15 (13-39) Units/L ALT 16 (7-52) Units/L Alkaline Phosphatase 70 (34-104) Units/L Troponin I (< 0.04) ng/mL Serum Total Protein 6.9 (6.4-8.9) g/dL Albumin 3.4 L (3.5-5.7) g/dL Globulin 3.5 (2.4-3.5) g/dL Albumin/Globulin Ratio 1.0 L (1.1-2.2) Lipase 16 (11-82) Units/L Urine Color (Yellow) Urine Clarity (Clear) Urine pH (5.0-8.0) pH Units Ur Specific [place] (1.010-1.025) Urine Protein (Neg-Trace) mg/dL Urine Glucose (UA) (Normal) mg/dL Urine Ketones (Negative) mg/dL Urine Blood (Negative) Urine Nitrite (Negative) Urine Bilirubin (Negative) Urine Urobilinogen (Normal) mg/dL Ur Leukocyte Esterase (Negative) Urine Microscopic RBC (0-3) per hpf Urine Microscopic WBC (0-3) per hpf Ur Squamous Epith Cells (None-Few) per lpf Urine Bacteria (None-Few) per hpf Hyaline Casts Ur Culture Indicated? (NO) 07/29/17 07/29/17 07/29/17 Range/Units 16:50 17:45 18:40 WBC (4.3-11.1) K/mcL RBC (4.19-5.50) M/mcL Hgb (12.9-16.9) g/dL Hct (37.5-50.1) % MCV (83.0-100.0) fL MCH (28.0-33.3) pg MCHC (31.6-35.5) g/dL RDW (11.5-14.5) % Plt Count (140-400) K/mcL MPV (9.4-12.4) fL Immature Gran % (0-4) % Seg Neutrophils % % Lymphocytes % % Monocytes % % Eosinophils % % Basophils % % Neutrophils # (1.6-8.9) K/mcL Lymphocytes # (0.6-4.6) K/mcL Monocytes # (0.0-1.3) K/mcL Eosinophils # (0.0-0.6) K/mcL Basophils # (0.0-0.2) K/mcL PT 12.7 H (9.4-12.1) Seconds INR 1.2 APTT 28.2 (26.0-36.0) Seconds Sodium (136-145) mEq/L Potassium (3.5-5.1) mEq/L Chloride (98-107) mEq/L Carbon Dioxide (23-29) mEq/L BUN (8-23) mg/dL Creatinine (0.70-1.30) mg/dL Est GFR ( Amer) (> 60) Est GFR (Non-Af Amer) (> 60) BUN/Creatinine Ratio (6-26) Glucose (70-105) mg/dL Calculated Osmolality (280-300) Lactic Acid (0.5-2.2) mmol/L Calcium (8.6-10.3) mg/dL Total Bilirubin (0.3-1.0) mg/dL Direct Bilirubin (0.0-0.2) mg/dL Indirect Bilirubin (0.0-1.2) mg/dL AST (13-39) Units/L ALT (7-52) Units/L Alkaline Phosphatase (34-104) Units/L Troponin I < 0.03 (< 0.04) ng/mL Serum Total Protein (6.4-8.9) g/dL Albumin (3.5-5.7) g/dL Globulin (2.4-3.5) g/dL Albumin/Globulin Ratio (1.1-2.2) Lipase (11-82) Units/L Urine Color Yellow (Yellow) Urine Clarity Cloudy A (Clear) Urine pH 5.5 (5.0-8.0) pH Units Ur Specific [place] 1.022 (1.010-1.025) Urine Protein 30 H (Neg-Trace) mg/dL Urine Glucose (UA) Normal (Normal) mg/dL Urine Ketones Negative (Negative) mg/dL Urine Blood Negative (Negative) Urine Nitrite Negative (Negative) Urine Bilirubin Small H (Negative) Urine Urobilinogen Normal (Normal) mg/dL Ur Leukocyte Esterase Negative (Negative) Urine Microscopic RBC 5-15 H (0-3) per hpf Urine Microscopic WBC 5-15 H (0-3) per hpf Ur Squamous Epith Cells Many H (None-Few) per lpf Urine Bacteria None Seen (None-Few) per hpf Hyaline Casts Test Not Performed Ur Culture Indicated? NO (NO) - Radiology Data Radiology results reviewed: Yes I reviewed the patient's radiology results. Abdomen/Pelvis CT 07/29/17 16:15 IMPRESSION: No evidence for acute intra-abdominal or intrapelvic pathology. No bowel obstruction or inflammation. No evidence for nephrolithiasis or urinary obstruction. Generalized bladder wall thickening which may represent chronic cystitis. Correlation with urinalysis suggested. Colonic diverticulosis without evidence for acute diverticulitis. Fluid-filled small bowel loops without evidence for dilatation to suggest ileus or small-bowel obstruction. Advanced bilateral hip arthrosis. D/ / Magen Serna MD / Magen Serna MD Interpreting Provider: Magen Serna MD Chest X-Ray 07/29/17 16:49 IMPRESSION: No acute process. D/ / Donte Siddiqui MD / Donte Siddiqui MD Interpreting Provider: Donte Siddiqui MD Abdomen/Pelvis CTA 07/29/17 17:06 IMPRESSION: 1. No convincing evidence of ischemic colitis. 2. Non opacification of the proximal 2 cm of the superior mesenteric artery which has dense calcifications at its origin. There is distal filling of the artery with contrast. Patent inferior mesenteric artery. 3. Suspected focal peristalsis of the distal transverse colon versus less likely focal narrowing. Consider further evaluation with nonemergent colonoscopy. No bowel obstruction. 4. Mild anterior urinary bladder wall thickening as can be seen with cystitis. Recommend correlation with urinalysis. D/ / Santana London MD / Santana London MD Interpreting Provider: Santana London MD Gallbladder Ultrasound 07/29/17 17:34 IMPRESSION: 1. No evidence of cholelithiasis or biliary obstruction. There is a tiny mucosal polyp 2. Normal ultrasound appearance of the liver, right kidney, and visualized portion of the pancreas D/ / Esdras Bowling MD / Esdras Bowling MD Interpreting Provider: Esdras Bowling MD - EKG Data EKG attestation: Yes I reviewed and interpreted this EKG. EKG shows normal: sinus rhythm Rate: normal (81 bpm MO 155 QRS 145 QTc 405 no acute ischemic changes, right bundle branch block seen on previous EKG.) Attestation Statement - Attestation Attestation: I, Steve Bui DO, examined this patient [id number] and my medical decision-making was reviewed with Dr. Azam Alarcon, Resident Physician. I agree with the documented findings, disposition and treatment plan as described except to the extent set forth below. Please see my progress notes for details. 72-year-old male presents to the emergency room with complaint of generalized abdominal pain. Patient has had these symptoms for over 1 week. He was just discharged from the hospital with similar issue where he had an ileus. Patient was discharged home after being treated for pneumonia and ileus. Patient denies any chest pain shortness of breath headache vision changes nausea vomiting. Denies any diarrhea. Denies any fevers or chills. He complained this time is diffuse abdominal discomfort. Patient does not have a rigid abdomen. But on light percussion to the abdomen patient does complain of pain and discomfort. Patient is unable to visualize without any discomfort in his abdomen. Vital signs are reviewed and are unremarkable. Patient is concerning for possible intra-abdominal pathology secondary to most recent ileus. Patient is a long-standing history of vascular disease. He was also concern for vascular insufficiency to the intestines. Patient will have thorough detailed evaluation with chest x-ray EKG screening laboratory workup including lactic acid and blood counts. Patient is otherwise resting in the bed at this time pain medication was given. See detailed documentation of the physical exam, medical intervention, medical decision-making and disposition in the resident physician's note. No critical care provider this patient's treatment 183 Patient is still concerning for ischemic colitis based on the physical exam. Lactic acid is elevated at 3.3. His kidney function is 2.3. Consultation placed to the custom miller Dr. Garcia. We reviewed the concern as well as the lab to workup. He understands our concerns that he will fall considering we are going to do a contrasted study. Recommended fluid boluses at this time. CT angiography of the abdomen does show a possible calcified lesion at the entrance of the superior mesenteric artery with no visible signs of complete occlusion. Patient does not have any focal source for the elevated lactic acid as well as renal insufficiency. There is no infectious etiology noted during his treatment course. Concern is noted for some ischemic related issue causing the abdominal pain elevated lactic acid and kidney insufficiency at this time. Patient is not currently on any nephrotoxic medications. He did not receive any significant dye load during his last hospital evaluation. Patient will be admitted at this time for definitive management and evaluation by nephrology as well as the hospitalist group. Unknown etiology of the presentation of abdominal pain this time. Symptoms have been controlled with IV narcotic medication. Patient is otherwise unremarkable this point. Patient was informed of the potential risks with the kidney insufficiency as well as a contrasted study. He appreciates our concern and allowed for the imaging modalities to be completed. Patient's does potentially have another etiology is unknown at this point we are going to admit him for further evaluation and treatment.
[2017-07-29] MEDS ORDERED: 0.9 % Sodium Chloride 1,000 ML IVC ONE ×2 (16:14→17:39)
[2017-07-29] MEDS ORDERED: Ondansetron 4 MG/2 ML VIAL IVP ONE (16:14)
[2017-07-29 16:56] LABS: Basophils # 0.1 K/mcL (0.0-0.2); Basophils % 0.6 %; Eosinophils % 0.2 %; Hematocrit 39.6 % (37.5-50.1); Hemoglobin 12.7 g/dL (12.9-16.9); Immature Granulocytes % 0.7 % (0-4); Lymphocytes % 15.3 %; Mean Corpuscular HGB Conc 32.1 g/dL (31.6-35.5); Mean Corpuscular Hemoglobin 27.9 pg (28.0-33.3); Mean Platelet Volume 10.5 fL (9.4-12.4); Monocytes # 0.9 K/mcL (0.0-1.3); Monocytes % 6.5 %; Neutrophils # 10.1 K/mcL (1.6-8.9); Platelet Count 313 K/mcL (140-400); Red Blood Count 4.55 M/mcL (4.19-5.50); Red Cell Distribution Width 14.3 % (11.5-14.5); Segmented Neutrophils % 76.7 %
[2017-07-29] MEDS ORDERED: *HR* FentaNYL (PF) 100 MCG/2 ML VIAL IVP ONE ×2 (17:10→19:11)
[2017-07-29 17:13] LABS: Albumin 3.4 g/dL (3.5-5.7); Bilirubin,Direct 0.1 mg/dL (0.0-0.2); Bilirubin,Indirect 0.4 mg/dL (0.0-1.2); Bilirubin,Total 0.5 mg/dL (0.3-1.0); Globulin 3.5 g/dL (2.4-3.5); Potassium 4.7 mEq/L (3.5-5.1); Total Protein 6.9 g/dL (6.4-8.9)
[2017-07-29 19:00] LABS: INR 1.2; Prothrombin Time 12.7 Seconds (9.4-12.1)
[2017-07-29 19:02] LABS: Activated Partial Thrombo Time 28.2 Seconds (26.0-36.0)
[2017-07-29 19:04] LABS: Bilirubin,Urine Small (Negative); Blood,Urine Negative (Negative); Clarity,Urine Cloudy (Clear); Color,Urine Yellow (Yellow); Glucose,Urine (UA) Normal (Normal); Ketones,Urine Negative (Negative); Leukocyte Esterase,Urine Negative (Negative); Nitrite,Urine Negative (Negative); PH,Urine 5.5 pH Units (5.0-8.0); Protein,Urine 30 mg/dL (Neg-Trace); Specific Gravity,Urine 1.022 (1.010-1.025); Urobilinogen,Urine Normal (Normal)
[2017-07-29 19:05] LABS: Bacteria,Urine None Seen per hpf (None-Few); Squamous Epithelial Cell,Urine Many per lpf (None-Few)
[2017-07-29] MEDS ORDERED: 0.9 % Sodium Chloride 1,000 ML IVC SCH (19:45)
[2017-07-29] MEDS ORDERED: Naloxone 0.4 MG/ML INJ IVP PRN (21:01)
[2017-07-29] MEDS ORDERED: Benzonatate 100 MG CAPSULE PO PRN (21:04)
[2017-07-29] MEDS ORDERED: Albuterol 2.5 MG/3 ML NEBULIZER IH PRN (21:04)
[2017-07-29] MEDS ORDERED: *HR* OxyCODONE/APAP 10/325 TABLET PO PRN (21:04)
--- NOTE | 2017-07-29 21:12 | Internal Med History&Physical ---
<Mickey Blanton - Last Filed: 07/29/17 22:04> Date of Encounter: 07/29/17 Time of Encounter: 20:45 Assessment and Plan (1) Lactic acidosis Current visit: Yes Status: Acute Lactic acidosis, LA 3.3 Concern for ischemic bowel despite lack of radiological findings Patient was initially hypotensive, however responded appropriately to fluids We will continue maintenance fluids, control pain Start IV Rocephin and Flagyl to control possible infection We will consult GI for recommendations in the morning Consider surgical consultation if indication arises, Patient requests Dr. Ryder (2) Abdominal pain Current visit: Yes Status: Acute Severe abdominal pain, generalized There is severe pain that is associated with limited guarding Imaging of the abdomen does not provide obvious source of pain, however mesenteric ischemia suspected We will check a GI panel + Occult blood Considering severe pain, recent ileus, iron deficiency anemia, and weight loss, we will consult GI We will continue to observe, monitor for changes in status Qualifiers: Abdominal location: generalized Qualified Code(s): R10.84 - Generalized abdominal pain (3) Acute kidney injury Current visit: Yes Status: Acute Acute kidney injury, Likely secondary to prerenal azotemia/dehydration Serum Cr 2.3 GFR 28. Previously Serum Cr 0.65 GFR >60 Patient has received 2 L NS and maintenance fluids, we will recheck BMP in the AM We will avoid nephrotoxic agents Dr. Garcia was consulted from the ED for recommendation on CT contrast, and agreed to follow after (4) HTN (hypertension) Current visit: No Status: Chronic Hypertension, Apparently well controlled Patient was hypotensive on arrival secndary to hypovolemia and lactic acidosis We will hold HCTZ and Lisinopril due to BRYAN Qualifiers: Hypertension type: essential hypertension Qualified Code(s): I10 - Essential (primary) hypertension (5) DMII (diabetes mellitus, type 2) Current visit: Yes Status: Chronic Insulin dependent diabetes mellitus type 2 with hyperglycemia At this time, glucose appears to be in relative poor control but may be secondary to acute illness We will hold oral meds, continue basal insulin and start SSI Qualifiers: Diabetes mellitus complication status: without complication Diabetes mellitus fdc insulin use: with joint terminal attack controller use Qualified Code(s): E11.9 - Type 2 diabetes mellitus without complications; Z79.4 - shelter (current) use of insulin; Z79.4 - shelter (current) use of insulin; Z79.4 - watermelon inspector ( current) use of insulin; Z79.4 - watermelon inspector (current) use of insulin (6) DVT prophylaxis Current visit: Yes Status: Acute SQ Heparin Internal Medicine - H&P: HPI Chief complaint: Abdominal pain Admitted From: Emergency Dept Plans for Post Hospital Care: Home History of present illness: Mr. Walker is a 72 year old male with a history of bladder cancer, COPD, diabetes mellitus, hyperlipidemia, hypertension, PAD status post recent PCI in the LEs by Dr. Alvarez and recent admission to the hospital for pneumonia who presents to the ED with severe abdominal pain. The patient states that he has been having severe abdominal pain for the past 2 weeks, however he has had abdominal pain for approximately 3 months. It started insidiously, and has gotten worse. At this time he notes that the pain is anywhere from 7-9 out of 10, and has been relatively constant over the past 2 weeks. He was in the hospital on July 01, at which time he had a pneumonia. During that stay he did develop an ileus which was treated conservatively. He says that the pains been getting worse. He describes it as a sharp and burning sensation that is generally throughout his entire abdomen but mostly superior to the umbilicus. He says that occasionally lying on his left side and applying pressure to his abdomen can be somewhat helpful, however nothing else seems to help. Eating does seem to make the pain significantly worse. He says that shortly after eating he developed sharp pain in his abdomen which will not seize for several hours. He also admits to a 45 pound weight loss over the past several months which can only be explained by lack of eating due to pain. He apparently went to the [facility] urgent care earlier today at which time he had a gallbladder ultrasound that demonstrated mild wall thickening of the gallbladder. He admits to significant nausea with only limited vomiting, and he has had loose stools which progressed to watery diarrhea over the past 3 days. He denies any hematochezia or hematemesis, he also denies any melena. He does admit to some chills, however he denies any fever to his knowledge. He has no other acute symptoms at this time. Past Med Surg Social Fam HX - Past Medical History Medical history: cancer, COPD, diabetes, hyperlipidemia, hypertension Psychiatric history: no psych history - Past Surgical History Surgical History: cataract, orthopedic, other - Social History Smoking Status: Current every day smoker Smokeless Tobacco Status: No Alcohol use: rarely Drug use: none - Family History Mother Family Member Ethnicity: Non- Living Status: Hx Family Endocrine Disorder: Yes (DM) Daughter Family Member Ethnicity: Non- Living Status: Still Living Hx Family GI Disorders: (stomach ulcer) Son Family Member Ethnicity: Non- Hx Family Cardiac Disorders: Yes (HTN) Hx Family Endocrine Disorder: Yes (DM) Internal Medicine - H&P: Meds Albuterol Sulfate [Ventolin Hfa] 2 puff IH Q6H PRN 06/12/17 [History] Aspirin [Lo-Dose Aspirin EC] 81 mg PO DAILY 06/12/17 [History] Atorvastatin [Lipitor] 40 mg PO HS 06/12/17 [History] Calcium Carb/Vitamin D3/Vit K1 [Calcium + D Soft Chewable Tab] 1 each PO BID [History] Clopidogrel [Plavix] 75 mg PO DAILY #30 tablet 06/12/17 [Rx] Lisinopril [Zestril] 40 mg PO DAILY 06/12/17 [History] Metformin HCl [Glucophage] 1,000 mg PO BID 06/12/17 [History] Albuterol Neb [Proventil Neb] 2.5 mg IH Q8H PRN 07/01/17 [History] Benzonatate [Tessalon] 100 mg PO Q6H PRN 07/01/17 [History] Budesonide/Formoterol 160/4.5 [Symbicort 160/4.5] 2 puff IH BIDR 07/01/17 [ History] Carboxymethylcellulose Sodium [Refresh Liquigel] 1 drop OP TID 07/01/17 [History ] Cetirizine HCl [Zyrtec] 10 mg PO DAILY 07/01/17 [History] Cyanocobalamin (Vitamin B-12) [Vitamin B12] 1,000 mcg PO DAILY 07/01/17 [History ] GuaiFENesin/Dextromethorphan [Tussin Dm Syrup] 10 ml PO Q4H PRN 07/01/17 [ History] Insulin Glargine [Lantus] 34 unit SQ HS 07/01/17 [History] Mag Hydrox/Al Hydrox/Simeth [Antacid Suspension] 15 ml PO TIDAC 07/01/17 [ History] Nicotine Patch [Nicoderm] 7 mg TD DAILY 07/01/17 [History] Nicotine Polacrilex [Nicotine Lozenge] 2 mg BC AD PRN 07/01/17 [History] Omeprazole [PriLOSEC] 20 mg PO BIDAC 07/01/17 [History] Oxycodone HCl/Acetaminophen [Percocet 10-325 mg Tablet] 1 each PO Q6H PRN [History] Tiotropium [place] [Spiriva Respimat] 2 puff IH DAILY 07/01/17 [History] Venlafaxine XR (24 HR) [Effexor Xr] 37.5 mg PO DAILY 07/01/17 [History] glipiZIDE [Glipizide] 10 mg PO BID 07/01/17 [History] guaiFENesin [Guaifenesin] 400 mg PO Q12H 07/01/17 [History] hydroCHLOROthiazide [Hydrochlorothiazide] 25 mg PO DAILY 07/01/17 [History] Ondansetron HCl [Zofran] 2 mg PO TID PRN 07/29/17 [History] Ranitidine HCl [Zantac] 150 mg PO BID 07/29/17 [History] amLODIPine [Norvasc] 5 mg PO DAILY 07/29/17 [History] 3 Allergy/AdvReac Type Severity Reaction Status Date / Time No Known Allergies Allergy Verified 06/12/17 06:54 All Systems PM: A 10-system review of systems was performed and is negative for pertinent findings except as documented above in the HPI. Review of systems: Constitutional: Admits to chills and weight loss. Denies fevers, generalized fatigue Head/Neck: Denies MENDEZ, neck stiffness EENT: Denies vision changes/blurriness, rhinorrhea, congestion, sore throat CVS: Denies chest pain, palpitations, WANG, orthopnea, edema, PND. Pulm: Admits to baseline SOB. Denies cough, sputum, hemoptysis, wheezing GI: Admits to nausea, vomiting, severe abomina pain, and some diarrhea. Denies melena, hematemasis : Denies dysuria, increased frequency, urgency, hematuria Heme: Denies ease of bleeding or bruising MSK: Admits to chronic back pain. Denies joint pain, limited ROM Skin: Denies rashes, ulcers, color changes Neuro: Denies MENDEZ, paresthesias, focal deficits, ataxia - Constitutional Vitals: Temp Pulse Resp BP Pulse Ox 99.2 F 89 20 144/71 95 07/29/17 20:50 07/29/17 20:50 07/29/17 20:50 07/29/17 20:50 07/29/17 20:50 Exam: Gen: Vitals noted. No acute distress. AAOx3 HEENT: PERRL/EOMI, oropharynx clear, Normocephalic, atraumatic Neck: Supple. No adenopathy. Cardiac: RRR, no murmur, +S1/S2 Pulmonary: CTA bilaterally, no wheezes, rales or rhonchi, equal chest expansion Abdomen: soft, diffusely tender with voluntary guarding noted on exam. No palpable masses Back: Tenderness to palpation over lumbar spine, which patient says is chronic Extremities: no BLE edema, nontender calf, no cyanosis or clubbing Neuro: A&Ox3, moves all extremities, no focal deficits Psych: Appropriate mood and behavior Internal Med - H&P Results - Labs CBC & Chem 7: 07/29/17 16:50 07/29/17 16:50 <Kaden Gary - Last Filed: 07/30/17 04:48> Date of Encounter: 07/30/17 Internal Medicine - H&P: HPI History of present illness: Mr. Walker is a 72 year old male All Systems PM: A 10-system review of systems was performed and is negative for pertinent findings except as documented above in the HPI. - Constitutional Vitals: Temp Pulse Resp BP Pulse Ox 98.2 F 87 18 103/51 95 07/30/17 04:26 07/30/17 04:26 07/30/17 04:26 07/30/17 04:26 07/30/17 04:26 Internal Med - H&P Results - Labs CBC & Chem 7: 07/29/17 16:50 07/29/17 16:50 - Attending Attestation I have seen and examined this pt independently. I have discussed with Resident physician Dr Blanton regarding the management plan, agree with the documentation.
[2017-07-29] MEDS ORDERED: INSULIN GLARGINE 34 UNIT SQ SCH (21:15)
[2017-07-29] MEDS ORDERED: Dextrose Gel 15 GM/37.5 ML TUBE PO PRN ×2 (21:30)
[2017-07-29] MEDS ORDERED: *HR* Dextrose 50 % in Water (Syg) 50 ML SYRINGE IVP PRN (21:30)
[2017-07-29] MEDS ORDERED: D5% in Water 1,000 ML IVC PRN (21:30)
[2017-07-29] MEDS: Budesonide/Formoterol 160/4.5 MDI IH SCH (21:44)
[2017-07-29] MEDS: 0.9 % Sodium Chloride 1,000 ML IVC SCH (23:09)
[2017-07-29] MEDS: *HR* Heparin 5,000 UNIT/ML VIAL SQ SCH (23:10)
[2017-07-29] MEDS: Insulin LISPRO 300 UNITS/3 ML VIAL SQ SCH (23:10)
[2017-07-29] MEDS: Nicotine 7 MG PATCH.TD24 TD SCH (23:10)
[2017-07-29] MEDS: cefTRIAXone 1,000 MG in Water for inj. (sterile) 20 ML 10 ML IVPB SCH (23:11)
[2017-07-29] MEDS: MetroNIDAZOLE 500 MG/100 ML 500 MG/100 ML BAG IVPB SCH (23:11)
[2017-07-29] MEDS: Ondansetron 4 MG/2 ML VIAL IVP SCH (23:58)
[2017-07-30] MEDS: *HR* Heparin 5,000 UNIT/ML VIAL SQ SCH ×2 (06:07→18:35)
[2017-07-30] MEDS: MetroNIDAZOLE 500 MG/100 ML 500 MG/100 ML BAG IVPB SCH ×3 (06:07→18:33)
[2017-07-30] MEDS: *HR* OxyCODONE/APAP 10/325 TABLET PO PRN ×5 (06:07→22:52)
[2017-07-30] MEDS: Pantoprazole 40 MG VIAL IVP SCH ×2 (06:07→18:09)
[2017-07-30 06:21] LABS: Immature Granulocytes % 0.6 % (0-4); Lymphocytes % 19.3 %; Mean Corpuscular HGB Conc 32.4 g/dL (31.6-35.5); Mean Corpuscular Hemoglobin 28.2 pg (28.0-33.3); Mean Corpuscular Volume 87.2 fL (83.0-100.0); Mean Platelet Volume 10.6 fL (9.4-12.4); Monocytes % 8.3 %; Platelet Count 265 K/mcL (140-400); Red Cell Distribution Width 14.2 % (11.5-14.5)
[2017-07-30 06:22] LABS: Basophils # 0.1 K/mcL (0.0-0.2); Basophils % 0.5 %; Eosinophils # 0.1 K/mcL (0.0-0.6); Eosinophils % 0.3 %; Lymphocytes # 2.9 K/mcL (0.6-4.6); Monocytes # 1.2 K/mcL (0.0-1.3); Neutrophils # 10.5 K/mcL (1.6-8.9)
[2017-07-30 06:44] LABS: Calcium 8.1 mg/dL (8.6-10.3); Potassium 3.8 mEq/L (3.5-5.1)
[2017-07-30] MEDS: Budesonide/Formoterol 160/4.5 MDI IH SCH ×2 (08:07→23:20)
[2017-07-30] MEDS ORDERED: amLODIPine 5 MG TABLET PO SCH (09:00)
[2017-07-30] MEDS ORDERED: NON-FORMULARY MEDICATION 1 EACH EACH (Insulin Glargine [Lantus] 25 UNIT) SQ SCH (09:00)
[2017-07-30] MEDS: Aspirin Enteric Coated 81 MG Tablet PO SCH (10:13)
[2017-07-30] MEDS: Venlafaxine XR (24 HR) 37.5 MG CAP.ER.24H PO SCH (10:14)
--- NOTE | 2017-07-30 10:48 | Nephrology Consult Note ---
Date of Encounter: 07/30/17 Time of Encounter: 10:15 Assessment and Plan (1) Acute kidney injury Current Visit: Yes Status: Acute BRYAN in setting of poor oral intake and GI losses, hypotension, diuretic contributing. Renal fct improving, creat 1.47. Would continue IV fluids. Avoid nephrotoxins, accurate I&O. Will continue to monitor. History of Present Illness - Reason for Consult Acute Kidney Injury - History of Present Illness Mr. Walker is a 72 year old male who presented to ER yesterday with abdominal pain from [facility] urgent care. Other PMH- COPD, PVD. Mr. Walker states he has had ongoing abdominal pain for one month with a 40 pound weight loss. He states he has not had an appetite. He also states decreased fluid intake. He admits nausea , vomiting and diarrhea throughout last few weeks. He was discharged from the hospital about two weeks ago for PNA and BRYAN. He was also evaluated by surgery during that stay for abdominal pain and radiologic evidence suggestive of a small bowel obstruction. There was also an indeterminate 1.5 cm lesion extending from the anterior aspect of the lower pole of the left kidney. The patient has a history of bladder cancer, last treated 4 years ago and states has had yearly cystoscopy since. in this lesion is concerning. Creat peaked 1.38 during that visit, with normal renal fct prior and following peaked creat. Yesterday in ER creat 2.3, GFR 28, lactic acid 3.3, down to 1.5. There was concern for ischemic bowel, CT abdomen with contrast done in setting of BRYAN due to brevity of concern. Patient was also hypotensive and received 2 liters of IV NS. Lisinopril and HCTZ held. This morning Mr. Walker states somewhat better but still does not feel well. He states still has diarrhea, though not as watery. He remains nauseated though no emesis. He states no knowledge of prior CKD. Admits bladder cancer as stated above. Renal fct improved today, creat 1.47. Past Med Surg Social Fam HX - Past Medical History Medical history: cancer, COPD, diabetes, hyperlipidemia, hypertension, other Psychiatric history: no psych history - Past Surgical History Surgical History: angioplasty/stent, cataract, orthopedic, other - Social History Smoking Status: Former smoker Smokeless Tobacco Status: No Alcohol use: rarely Drug use: none - Family History Mother Family Member Ethnicity: Non- Living Status: Age at : 80 Cause of : Unknown Hx Family Endocrine Disorder: Yes (DM) Daughter Family Member Ethnicity: Non- Living Status: Still Living Hx Family GI Disorders: (stomach ulcer) Son Family Member Ethnicity: Non- Living Status: Still Living Hx Family Cardiac Disorders: Yes (HTN) Hx Family Endocrine Disorder: Yes (DM) Medications and Allergies Albuterol Sulfate [Ventolin Hfa] 2 puff IH Q6H PRN 06/12/17 [History] Aspirin [Lo-Dose Aspirin EC] 81 mg PO DAILY 06/12/17 [History] Atorvastatin [Lipitor] 40 mg PO HS 06/12/17 [History] Calcium Carb/Vitamin D3/Vit K1 [Calcium + D Soft Chewable Tab] 1 each PO BID [History] Clopidogrel [Plavix] 75 mg PO DAILY #30 tablet 06/12/17 [Rx] Lisinopril [Zestril] 40 mg PO DAILY 06/12/17 [History] Metformin HCl [Glucophage] 1,000 mg PO BID 06/12/17 [History] Albuterol Neb [Proventil Neb] 2.5 mg IH Q8H PRN 07/01/17 [History] Benzonatate [Tessalon] 100 mg PO Q6H PRN 07/01/17 [History] Budesonide/Formoterol 160/4.5 [Symbicort 160/4.5] 2 puff IH BIDR 07/01/17 [ History] Carboxymethylcellulose Sodium [Refresh Liquigel] 1 drop OP TID 07/01/17 [History ] Cetirizine HCl [Zyrtec] 10 mg PO DAILY 07/01/17 [History] Cyanocobalamin (Vitamin B-12) [Vitamin B12] 1,000 mcg PO DAILY 07/01/17 [History ] GuaiFENesin/Dextromethorphan [Tussin Dm Syrup] 10 ml PO Q4H PRN 07/01/17 [ History] Insulin Glargine [Lantus] 34 unit SQ HS 07/01/17 [History] Mag Hydrox/Al Hydrox/Simeth [Antacid Suspension] 15 ml PO TIDAC 07/01/17 [ History] Nicotine Patch [Nicoderm] 7 mg TD DAILY 07/01/17 [History] Nicotine Polacrilex [Nicotine Lozenge] 2 mg BC AD PRN 07/01/17 [History] Omeprazole [PriLOSEC] 20 mg PO BIDAC 07/01/17 [History] Oxycodone HCl/Acetaminophen [Percocet 10-325 mg Tablet] 1 each PO Q6H PRN [History] Tiotropium [place] [Spiriva Respimat] 2 puff IH DAILY 07/01/17 [History] Venlafaxine XR (24 HR) [Effexor Xr] 37.5 mg PO DAILY 07/01/17 [History] glipiZIDE [Glipizide] 10 mg PO BID 07/01/17 [History] guaiFENesin [Guaifenesin] 400 mg PO Q12H 07/01/17 [History] hydroCHLOROthiazide [Hydrochlorothiazide] 25 mg PO DAILY 07/01/17 [History] Ondansetron HCl [Zofran] 2 mg PO TID PRN 07/29/17 [History] Ranitidine HCl [Zantac] 150 mg PO BID 07/29/17 [History] amLODIPine [Norvasc] 5 mg PO DAILY 07/29/17 [History] 3 Allergy/AdvReac Type Severity Reaction Status Date / Time No Known Allergies Allergy Verified 06/12/17 06:54 Review of Systems All Systems: reviewed and no additional remarkable complaints except as stated Exam - Vital Signs Vital signs: Initial Vital Signs Temp Pulse Resp BP Pulse Ox 97.5 F L 99 18 87/59 94 07/29/17 15:49 07/29/17 15:49 07/29/17 15:49 07/29/17 15:49 07/29/17 15:49 Vital Signs - Last 8 Hours Pulse Resp BP Pulse Ox 07/30/17 08:07 18 97 07/30/17 07:00 76 18 93/57 96 Intake and Output 07/29/17 07/30/17 07/30/17 23:59 07:59 15:59 Other: Blood Glucose* 66 86 - General Appearance General appearance: well-developed, well-nourished, appears started age EENT: mucous membranes moist Neck: no JVD Respiratory: wheezing Cardiology: no edema, regular rate, regular rhythm Gastrointestinal: hypoactive bowel sounds, tenderness Integumentary: warm and dry Neurologic: alert and oriented x3 Results - Lab Results 07/30/17 06:13 07/30/17 06:13 Most recent lab results Calcium 8.1 mg/dL (8.6-10.3) L 07/30/17 06:13 Consult Discharge Plan - Plan [facility]Primary Care Provider[facility] -
[2017-07-30] MEDS: Ondansetron 4 MG/2 ML VIAL IVP SCH ×3 (10:53→18:10)
[2017-07-30] MEDS: Nicotine 7 MG PATCH.TD24 TD SCH (10:56)
[2017-07-30] MEDS: Insulin LISPRO 300 UNITS/3 ML VIAL SQ SCH ×4 (10:56→20:48)
[2017-07-30] MEDS: 0.9 % Sodium Chloride 1,000 ML IVC SCH ×2 (11:00→20:49)
[2017-07-30] MEDS: Insulin DETEMIR 100 UNIT/ML X5UNITS SQ SCH (11:02)
--- NOTE | 2017-07-30 11:20 | Gastroenterology Consult Note ---
<Mickey Lopez - Last Filed: 07/30/17 11:17> Date of Encounter: 07/30/17 Time of Encounter: 10:20 - Assessment and plan (1) Abdominal pain Current Visit: Yes Status: Acute Assessment and plan: Imaging with no evidence of ischemic colitis, but CTA A/P with suspected focal peristalsis of the distal transverse colon versus less likely focal narrowing. No history of pancreatitis. Less likely due to ischemic colitis and likely secondary to chronic mesenteric ischemia. We will complete colonoscopy due to finding in transverse colon on CTA. Clear liquid diet today, no red or purple. NPO at midnight. If unable tolerate NuLytely please use MiraLAX prep. If not clear by 6 AM, give 2 tap water enemas. Qualifiers: Abdominal location: generalized Qualified Code(s): R10.84 - Generalized abdominal pain - Time Spent With Patient Total time spent is greater than 50% in coordination of care (as documented) at patient's floor/unit and/or counseling patient: GI History of Present Illness - Data of Consult Patient: new to practice Consult date: 07/30/17 Requesting Physician: Brandie Garcia MD - Consult Narrative Reason for consult: ischemic bowel History of present illness: Mr. Walker is a 72 year old male with PMHx of bladder cancer, COPD, DM, HLD, HTN , PAD status post recent PCI in the LEs, and recent admission to the hospital for pneumonia who presents to the ED with severe abdominal pain for the past 2 weeks. He reports abdominal pain for about 3 months which has worsened. He was in the hospital on July 01, at which time he had a pneumonia. During that stay he did develop an ileus which was treated conservatively. He says that occasionally lying on his left side and applying pressure to his abdomen can be somewhat helpful, however nothing else seems to help. Eating does seem to make the pain significantly worse. He also admits to a 45 pound weight loss over the past several months which can only be explained by lack of eating due to pain. He admits to significant nausea with only limited vomiting, and he has had loose stools which progressed to watery diarrhea over the past 3 days. He denies melena, hematochezia, or hematemesis. Lactic acid was 3.3 on admission and improved to 1.5. He was started on Rocephin and Flagyl. He denies history of pancreatitis. Imaging with no evidence of ischemic colitis, but CTA A/P with suspected focal peristalsis of the distal transverse colon versus less likely focal narrowing. Procedures: Colonoscopy 04/25/2009 Dr. Salcedo: mild patchy inflammation NSAIDs: ASA Anticoagulation: Plavix Past Med Surg Social Fam HX - Past Medical History Medical history: cancer, COPD, diabetes, hyperlipidemia, hypertension, other Psychiatric history: no psych history - Past Surgical History Surgical History: angioplasty/stent, cataract, orthopedic, other - Social History Smoking Status: Former smoker Smokeless Tobacco Status: No Alcohol use: rarely Drug use: none - Family History Mother Family Member Ethnicity: Non- Living Status: Age at : 80 Cause of : Unknown Hx Family Endocrine Disorder: Yes (DM) Daughter Family Member Ethnicity: Non- Living Status: Still Living Hx Family GI Disorders: (stomach ulcer) Son Family Member Ethnicity: Non- Living Status: Still Living Hx Family Cardiac Disorders: Yes (HTN) Hx Family Endocrine Disorder: Yes (DM) - Gastrointestinal Gastrointestinal: Present: as per HPI - Constitutional Constitutional: as per HPI - EENT Eyes: as per HPI Ears: Present: as per HPI Nose, mouth and throat: Present: as per HPI - Cardiovascular Cardiovascular ROS: Present: as per HPI - Respiratory Respiratory IM: Present: as per HPI - Genitourinary Genitourinary: Absent: change in color, Urinary frequency - Neurological ROS Neurological GI: Present: as per HPI - Hematologic/Lymphatic Hematologic/Lymphatic pediatric: Present: as per HPI - Musculoskeletal Musculoskeletal ROS GI: Present: as per HPI - Integumentary Integumentary GI: Present: as per HPI - Psychiatric ROS Psychiatric GI: Present: as per HPI - Endocrine Endocrine IM: Present: as per HPI - Constitutional Vitals: Temp Pulse Resp BP Pulse Ox 98.2 F 76 18 93/57 97 07/30/17 04:26 07/30/17 07:00 07/30/17 08:07 07/30/17 07:00 07/30/17 08:07 General appearance: Present: cooperative, A&O X 3, no acute distress, answers questions appropriately - Head Head exam: Present: atraumatic, normocephalic - Eye Eye exam: Present: normal appearance, sclera anicteric - ENT ENT exam: Present: mucous membranes dry - Neck Neck exam general surgery: Present: normal inspection, trachea midline - Respiratory Respiratory exam: Present: CTAB. Absent: rales, rhonchi - Cardiovascular Cardiovascular exam: Present: RRR, +S1, +S2 - GI/Abdominal GI/Abdominal exam: Present: guarding, normal bowel sounds, soft, tenderness ( generalized tenderness), no peritoneal signs. Absent: distended, firm - Rectal Rectal exam: Present: deferred - Extremities Exam Extremities exam: Present: warm - Neurological Exam Neurological exam: Present: no focal deficits - Psychiatric Psychiatric exam: Present: normal affect, normal mood - Skin Skin exam: Present: dry, intact, normal color, warm Results - Labs CBC & Chem 7: 07/30/17 06:13 07/30/17 06:13 Labs: Last Result Calcium 8.1 mg/dL (8.6-10.3) L 07/30/17 06:13 Troponin I < 0.03 ng/mL (< 0.04) 07/29/17 16:50 Entire Visit Hgb 11.0 g/dL (12.9-16.9) L D 07/30/17 06:13 Hct 34.0 % (37.5-50.1) L 07/30/17 06:13 PT 12.7 Seconds (9.4-12.1) H 07/29/17 18:40 Total Bilirubin 0.5 mg/dL (0.3-1.0) 07/29/17 16:50 AST 15 Units/L (13-39) 07/29/17 16:50 ALT 16 Units/L (7-52) 07/29/17 16:50 Lipase 16 Units/L (11-82) 07/29/17 16:50 - ABG ABG results: PT/INR, D-dimer PT 12.7 Seconds (9.4-12.1) H 07/29/17 18:40 Consult Discharge Plan - Plan [facility]errals: [facility] [Primary Care Provider[facility] - <Gregoria Sanchez - Last Filed: 07/30/17 18:29> Date of Encounter: 07/30/17 Time of Encounter: 17:00 - Time Spent With Patient Total time spent is greater than 50% in coordination of care (as documented) at patient's floor/unit and/or counseling patient: GI History of Present Illness - Data of Consult Requesting Physician: Brandie Garcia MD - Consult Narrative History of present illness: Mr. Walker is a 72 year old male - Constitutional Vitals: Temp Pulse Resp BP Pulse Ox 98.2 F 72 18 105/63 97 07/30/17 14:48 07/30/17 14:48 07/30/17 14:48 07/30/17 14:48 07/30/17 14:48 Results - Labs CBC & Chem 7: 07/30/17 06:13 07/30/17 06:13 Labs: Last Result Calcium 8.1 mg/dL (8.6-10.3) L 07/30/17 06:13 Troponin I < 0.03 ng/mL (< 0.04) 07/29/17 16:50 Entire Visit Hgb 11.0 g/dL (12.9-16.9) L D 07/30/17 06:13 Hct 34.0 % (37.5-50.1) L 07/30/17 06:13 PT 12.7 Seconds (9.4-12.1) H 07/29/17 18:40 Total Bilirubin 0.5 mg/dL (0.3-1.0) 07/29/17 16:50 AST 15 Units/L (13-39) 07/29/17 16:50 ALT 16 Units/L (7-52) 07/29/17 16:50 Lipase 16 Units/L (11-82) 07/29/17 16:50 - ABG ABG results: PT/INR, D-dimer PT 12.7 Seconds (9.4-12.1) H 07/29/17 18:40 - Attending Attestation I examined this patient and my medical decision-making was reviewed with the WELLNESS SPECIALIST. I agree with the documented findings, disposition and treatment plan as described except to the extent set forth below. Pt with chronic abdominal pain increased with eating. CT showed narrowing/ dense calcification of the origin of SMA. There is questionable narrowing in the distal transverse colon. Recommendation: Colonoscopy unremarkable and patient will vascular surgery evaluation for superior mesenteric artery stenosis
[2017-07-30 12:40] LABS: Adenovirus F 40/41 PCR Not detected (Not detect); Astrovirus PCR Not detected (Not detect); C.difficile Toxin A/B by PCR Not detected (Not detect); Campylobacter by PCR Not detected (Not detect); Cryptosporidium by PCR Not detected (Not detect); Cyclospora cayetanensis PCR Not detected (Not detect); E. coli O157 by PCR Not detected (Not detect); Entamoeba histolytica PCR Not detected (Not detect); Enteroaggregative E.coli(EAEC) Not detected (Not detect); Enteropathogenic E.coli(EPEC) Not detected (Not detect); Enterotoxigenic E.coli (ETEC) Not detected (Not detect); Giardia lamblia PCR Not detected (Not detect); Norovirus GI/GII PCR Not detected (Not detect); Plesiomonas shigelloides PCR Not detected (Not detect); Rotavirus A PCR Not detected (Not detect); Salmonella PCR Not detected (Not detect); Sapovirus PCR Not detected (Not detect); Shig/EnteroinvasiveE coli EIEC Not detected (Not detect); Shigalike tox-prod E coli STEC Not detected (Not detect); Vibrio PCR Not detected (Not detect); Vibrio cholerae PCR Not detected (Not detect); Yersinia enterocolitica PCR Not detected (Not detect)
[2017-07-30] MEDS ORDERED: 0.9 % Sodium Chloride 250 ML IVC ONE (13:14)
[2017-07-30] MEDS ORDERED: SODIUM CHLORIDE/NAHCO3/KCL/PEG 4,000 ML SOLN.RECON PO ONE (17:00)
--- NOTE | 2017-07-30 17:45 | Event Note ---
Date of Encounter: 07/30/17 Time of Encounter: 12:30 72 year old male with history of hypertension, diabetes, COPD, peripheral arterial disease, admitted with periumbilical abdominal pain, with postprandial worsening. Patient has a few month history of intermittent abdominal pains, suggestive of chronic with mesenteric ischemia. He had mild lactic acidosis at admission, which is currently resolved. Abdominal pain is improving. Patient also had acute kidney injury, which is improving with IV hydration. Seen and examined at bedside. Reports improving abdominal pain. No diarrhea or constipation, fever/chills, cough, shortness of breath. Chest-S1, S2 heard. Lungs are clear to auscultation Abdomen-slightly obese, mild tenderness in periUmbilical area, no guarding or rigidity CT angiogram of abdomen/pelvis showed no vascular compromise, Suspected focal peristalsis of the distal transverse colon versus less likely focal narrowing. Abdominal pain-could be chronic mesenteric ischemia. Continue clear liquid diet , IV hydration, supportive care with when necessary analgesics and antiemetics. GI consult appreciated, plan for colonoscopy tomorrow. Consulted surgery for further recommendations. Stool GI panel negative. Hypotension-could be hypovolemia. Continue IV hydration and monitor blood pressure closely. Hold antihypertensives. Resolved lactic acidosis.
--- NOTE | 2017-07-30 18:38 | General Surgery Consult Note ---
Date of Encounter: 07/30/17 Time of Encounter: 17:30 History of Present Illness Reason for consult: abdominal pain (weight loss approx 45 #) Requesting physician: Brandie Garcia History of present illness: 72-year-old male referred, at the patient's request, for further evaluation abdominal pain and possible ischemic bowel. Patient is familiar to me having been referred on 07/05/17 after eating transferred from the [facility] with increasing shortness of breath and difficulty breathing. At that time the patient was diagnosed with the flu but this had progressed to pneumonia. With the resultant respiratory difficulties the patient experienced worsening abdominal pain particularly following meals. CT of the abdomen and pelvis completed 07/01/17 showed patchy consolidation in the bilateral lower lobes more pronounced on the left. There is fluid-filled distention of both large and small bowel suggesting an ileus with mild mural thickening of the distal ileum as well as the proximal aspect of the colon, particularly at the hepatic flexure. Findings were deemed to be most consistent with terminal ileitis/ colitis. The patient did not require surgical intervention at that time allowing for medical intervention to address the patient's pneumonitis as well as the apparent infectious bowel disease. The patient returned to a [facility], 07/29/17, with complaints of 7 out of 10 abdominal pain. Patient was initially hypotensive but responded to fluid resuscitation. CT angiogram of the abdomen and pelvis demonstrated descending and sigmoid colon diverticulosis without evidence of acute diverticulitis. No colonic wall thickening was identified below a questionable focal narrowing versus peristalsis in the distal transverse colon was described. This appeared to be persistent from a study completed earlier the same day but did not correspond to the CT findings of 07/01/17 or 07/06/17. GI has been counseled that for further evaluation of these more recent radiologic findings Past medical history: Renal cancer, severe COPD recently exacerbated with the flu which progressed to pneumonia; diabetes, hypertension, hyperlipidemia. The patient continues to complain of abdominal pain usually following meals; and describes a weight loss of approximately 45 pounds Surgical history: Peripheral vascular disease with multiple stents placed in the left lower extremity. Allergies: No known drug allergies Physical examination: Age-appropriate bearded male, in no acute distress. He is resting comfortably in his hospital bed. Current weight 86.2 kg, height 1.75, BMI 28.1. Since admission patient is remained afebrile, most recent 98.2; pulse 72-80; respirations 18 and unlabored, blood pressure 84/53 improving to 105/63. SPO2 on room air 97%. Despite the patient's hypotension, he was not tachycardic Skin: Warm, no obvious jaundice Lungs: Clear bilaterally; no obvious pain and deep inspiration Cardiac: Regular rate, no appreciable murmurs Abdomen: Soft, examination inconsistently produced periumbilical pain which the patient described as cramping. There was no rebound. No peritoneal signs. When examined with the stethoscope to auscultate the abdomen; the patient demonstrated no abdominal pain or tenderness. Sounds were normal Laboratories: Leukocytosis of 14.8, hemoglobin 11.0, hematocrit 34.0. Neutrophils elevated at 10.5%. Platelet Count 265,000 Lactic acid on presentation, 07/29/17 3.3 repeated 4 hours later 1.5 On presentation sodium 1:30; repeat today 137, potassium, chloride, and bicarbonate have normalized, BUN has improved from 29-24, creatinine has improved from 2.30-1.47. Impression/Plan: 72-year-old male with vague abdominal complaints. This is accompanied by an inconsistent physical examination. Leukocytosis of undetermined etiology Chronic renal disease; history of renal cancer Diabetes mellitus reported 45# weight loss - check weight recorded during the patient 's prior hospitalization There was previous evidence of terminal ileitis/colitis 07/01/2017 but not demonstrated on more recent imaging GI consultation pending. Will await the results of that evaluation. abdominal pain possibly due to ischemia as suggested by elevated lactic acid (which quickly resolved) v gastroparesis v hepatobiliary source I will follow with you as no acute intra abd or pelvic process has been identified to date. Past Med Surg Social Fam HX - Past Medical History Medical history: cancer, COPD, diabetes, hyperlipidemia, hypertension, other Psychiatric history: no psych history - Past Surgical History Surgical History: angioplasty/stent, cataract, orthopedic, other - Social History Smoking Status: Former smoker Smokeless Tobacco Status: No Alcohol use: rarely Drug use: none - Family History Mother Family Member Ethnicity: Non- Living Status: Age at : 80 Cause of : Unknown Hx Family Endocrine Disorder: Yes (DM) Daughter Family Member Ethnicity: Non- Living Status: Still Living Hx Family GI Disorders: (stomach ulcer) Son Family Member Ethnicity: Non- Living Status: Still Living Hx Family Cardiac Disorders: Yes (HTN) Hx Family Endocrine Disorder: Yes (DM) Medications and Allergies Albuterol Sulfate [Ventolin Hfa] 2 puff IH Q6H PRN 06/12/17 [History] Aspirin [Lo-Dose Aspirin EC] 81 mg PO DAILY 06/12/17 [History] Atorvastatin [Lipitor] 40 mg PO HS 06/12/17 [History] Calcium Carb/Vitamin D3/Vit K1 [Calcium + D Soft Chewable Tab] 1 each PO BID [History] Clopidogrel [Plavix] 75 mg PO DAILY #30 tablet 06/12/17 [Rx] Lisinopril [Zestril] 40 mg PO DAILY 06/12/17 [History] Metformin HCl [Glucophage] 1,000 mg PO BID 06/12/17 [History] Albuterol Neb [Proventil Neb] 2.5 mg IH Q8H PRN 07/01/17 [History] Benzonatate [Tessalon] 100 mg PO Q6H PRN 07/01/17 [History] Budesonide/Formoterol 160/4.5 [Symbicort 160/4.5] 2 puff IH BIDR 07/01/17 [ History] Carboxymethylcellulose Sodium [Refresh Liquigel] 1 drop OP TID 07/01/17 [History ] Cetirizine HCl [Zyrtec] 10 mg PO DAILY 07/01/17 [History] Cyanocobalamin (Vitamin B-12) [Vitamin B12] 1,000 mcg PO DAILY 07/01/17 [History ] GuaiFENesin/Dextromethorphan [Tussin Dm Syrup] 10 ml PO Q4H PRN 07/01/17 [ History] Insulin Glargine [Lantus] 34 unit SQ HS 07/01/17 [History] Mag Hydrox/Al Hydrox/Simeth [Antacid Suspension] 15 ml PO TIDAC 07/01/17 [ History] Nicotine Patch [Nicoderm] 7 mg TD DAILY 07/01/17 [History] Nicotine Polacrilex [Nicotine Lozenge] 2 mg BC AD PRN 07/01/17 [History] Omeprazole [PriLOSEC] 20 mg PO BIDAC 07/01/17 [History] Oxycodone HCl/Acetaminophen [Percocet 10-325 mg Tablet] 1 each PO Q6H PRN [History] Tiotropium Morrison [Spiriva Respimat] 2 puff IH DAILY 07/01/17 [History] Venlafaxine XR (24 HR) [Effexor Xr] 37.5 mg PO DAILY 07/01/17 [History] glipiZIDE [Glipizide] 10 mg PO BID 07/01/17 [History] guaiFENesin [Guaifenesin] 400 mg PO Q12H 07/01/17 [History] hydroCHLOROthiazide [Hydrochlorothiazide] 25 mg PO DAILY 07/01/17 [History] Ondansetron HCl [Zofran] 2 mg PO TID PRN 07/29/17 [History] Ranitidine HCl [Zantac] 150 mg PO BID 07/29/17 [History] amLODIPine [Norvasc] 5 mg PO DAILY 07/29/17 [History] 3 Allergy/AdvReac Type Severity Reaction Status Date / Time No Known Allergies Allergy Verified 06/12/17 06:54 Review of Systems All systems PM: A 10-system review of systems was performed and is negative for pertinent findings except as documented above in the HPI. General Surgery Exam Initial Vital Signs Temp Pulse Resp BP Pulse Ox 97.5 F L 99 18 87/59 94 07/29/17 15:49 07/29/17 15:49 07/29/17 15:49 07/29/17 15:49 07/29/17 15:49 Exam Initial Vital Signs Temp Pulse Resp BP Pulse Ox 97.5 F L 99 18 87/59 94 07/29/17 15:49 07/29/17 15:49 07/29/17 15:49 07/29/17 15:49 07/29/17 15:49 Results - Labs 07/30/17 06:13 07/30/17 06:13 Abnormal lab results WBC 14.8 K/mcL (4.3-11.1) H 07/30/17 06:13 RBC 3.90 M/mcL (4.19-5.50) L 07/30/17 06:13 Hgb 11.0 g/dL (12.9-16.9) L D 07/30/17 06:13 Hct 34.0 % (37.5-50.1) L 07/30/17 06:13 Neutrophils # 10.5 K/mcL (1.6-8.9) H 07/30/17 06:13 PT 12.7 Seconds (9.4-12.1) H 07/29/17 18:40 BUN 24 mg/dL (8-23) H 07/30/17 06:13 Creatinine 1.47 mg/dL (0.70-1.30) H 07/30/17 06:13 Est GFR ( Amer) 57 (> 60) L 07/30/17 06:13 Est GFR (Non-Af Amer) 47 (> 60) L 07/30/17 06:13 Glucose 49 mg/dL (70-105) L 07/30/17 06:13 POC Glucose 126 (58-89) H 07/30/17 16:03 Calcium 8.1 mg/dL (8.6-10.3) L 07/30/17 06:13 Albumin 3.4 g/dL (3.5-5.7) L 07/29/17 16:50 Albumin/Globulin Ratio 1.0 (1.1-2.2) L 07/29/17 16:50 Urine Clarity Cloudy (Clear) A 07/29/17 17:45 Urine Protein 30 mg/dL (Neg-Trace) H 07/29/17 17:45 Urine Bilirubin Small (Negative) H 07/29/17 17:45 Urine Microscopic RBC 5-15 per hpf (0-3) H 07/29/17 17:45 Urine Microscopic WBC 5-15 per hpf (0-3) H 07/29/17 17:45 Ur Squamous Epith Cells Many per lpf (None-Few) H 07/29/17 17:45 Diabetes panel 07/30/17 Range/Units 06:13 Sodium 137 (136-145) mEq/L Potassium 3.8 (3.5-5.1) mEq/L Chloride 103 (98-107) mEq/L Carbon Dioxide 26 (23-29) mEq/L BUN 24 H (8-23) mg/dL Creatinine 1.47 H (0.70-1.30) mg/dL Glucose 49 L (70-105) mg/dL Calcium 8.1 L (8.6-10.3) mg/dL Calcium panel 07/30/17 Range/Units 06:13 Calcium 8.1 L (8.6-10.3) mg/dL Pituitary panel 07/30/17 Range/Units 06:13 Sodium 137 (136-145) mEq/L Potassium 3.8 (3.5-5.1) mEq/L Chloride 103 (98-107) mEq/L Carbon Dioxide 26 (23-29) mEq/L BUN 24 H (8-23) mg/dL Creatinine 1.47 H (0.70-1.30) mg/dL Glucose 49 L (70-105) mg/dL Calcium 8.1 L (8.6-10.3) mg/dL Adrenal panel 07/30/17 Range/Units 06:13 Sodium 137 (136-145) mEq/L Potassium 3.8 (3.5-5.1) mEq/L Chloride 103 (98-107) mEq/L Carbon Dioxide 26 (23-29) mEq/L BUN 24 H (8-23) mg/dL Creatinine 1.47 H (0.70-1.30) mg/dL Glucose 49 L (70-105) mg/dL Calcium 8.1 L (8.6-10.3) mg/dL All other labs normal. Consult Discharge Plan - Plan [facility]errals: [facility] [Primary Care Provider] -
--- NOTE | 2017-07-30 19:45 | Electrocardiograph Report ---
[place] [id number] Test Date: 2017-07-29 Pat Name: Mickey Walker Department: 102 Room: 2NE29 Gender: M Process Area Supervisor: : [id number] Requested By: Azam Alarcon Order Number: [id number] Reading MD: Raf Hu MD Measurements Intervals [place] Rate: 81 P: 74 VT: 155 QRS: 67 QRSD: 145 T: 33 QT: 368 QTc: 405 Interpretive Statements SINUS RHYTHM WITH SINUS ARRHYTHMIA RIGHT BUNDLE BRANCH BLOCK Electronically Signed On 07-30-2017 19:43:25 EST by Raf Hu MD
[2017-07-30] MEDS: cefTRIAXone 1,000 MG in Water for inj. (sterile) 20 ML 10 ML IVPB SCH (20:50)
[2017-07-31] MEDS: MetroNIDAZOLE 500 MG/100 ML 500 MG/100 ML BAG IVPB SCH ×3 (00:12→12:49)
[2017-07-31] MEDS: Ondansetron 4 MG/2 ML VIAL IVP SCH ×4 (00:17→17:34)
[2017-07-31] MEDS: *HR* OxyCODONE/APAP 10/325 TABLET PO PRN ×5 (04:25→21:34)
[2017-07-31] MEDS: Pantoprazole 40 MG VIAL IVP SCH ×2 (05:26→17:32)
[2017-07-31] MEDS: 0.9 % Sodium Chloride 1,000 ML IVC SCH (05:26)
[2017-07-31 05:32] LABS: Basophils # 0.1 K/mcL (0.0-0.2); Basophils % 0.6 %; Eosinophils # 0.3 K/mcL (0.0-0.6); Eosinophils % 2.7 %; Hematocrit 31.2 % (37.5-50.1); Hemoglobin 9.8 g/dL (12.9-16.9); Immature Granulocytes % 0.5 % (0-4); Lymphocytes # 2.4 K/mcL (0.6-4.6); Lymphocytes % 24.5 %; Mean Corpuscular HGB Conc 31.4 g/dL (31.6-35.5); Mean Corpuscular Hemoglobin 27.9 pg (28.0-33.3); Mean Corpuscular Volume 88.9 fL (83.0-100.0); Mean Platelet Volume 10.8 fL (9.4-12.4); Monocytes # 0.7 K/mcL (0.0-1.3); Monocytes % 6.6 %; Neutrophils # 6.4 K/mcL (1.6-8.9); Platelet Count 229 K/mcL (140-400); Red Blood Count 3.51 M/mcL (4.19-5.50); Red Cell Distribution Width 14.5 % (11.5-14.5); Segmented Neutrophils % 65.1 %
[2017-07-31] MEDS: *HR* Heparin 5,000 UNIT/ML VIAL SQ SCH ×2 (05:34→17:34)
[2017-07-31 05:55] LABS: BUN/Creatinine Ratio 14 (6-26); Blood Urea Nitrogen 15 mg/dL (8-23); Calcium 7.4 mg/dL (8.6-10.3); Carbon Dioxide 24 mEq/L (23-29); Chloride 107 mEq/L (98-107); Glucose 75 mg/dL (70-105); Osmolality,Calculated 280 (280-300); Potassium 4.2 mEq/L (3.5-5.1); Sodium 135 mEq/L (136-145); eGFR For African Americans > 60 (> 60); eGFR For Non-African Americans > 60 (> 60)
[2017-07-31] MEDS: Budesonide/Formoterol 160/4.5 MDI IH SCH ×2 (08:13→21:48)
--- NOTE | 2017-07-31 09:49 | Nephrology Progress Note ---
Date of Encounter: 07/31/17 Time of Encounter: 09:35 - Assessment and Plan (1) Acute kidney injury Current Visit: Yes Status: Acute BRYAN in setting of poor oral intake and GI losses, hypotension, diuretic contributing. Renal fct return to normal. Will sign off, call again if needed. Subjective Interval history: Sitting up in chair, states going for colonoscopy today Objective - Vital Signs Vital signs: Vital Signs Temp Pulse Resp BP Pulse Ox 07/31/17 08:13 18 97 07/31/17 06:52 97.9 F 72 18 110/58 91 07/30/17 20:35 98.4 F 83 17 90/66 97 07/30/17 14:48 98.2 F 72 18 105/63 97 07/30/17 11:28 97.9 F 80 19 84/53 97 Intake and Output 07/30/17 07/31/17 07/31/17 23:59 07:59 15:59 Intake Total 1200 / 1200 1100 / 1100 Balance 1200 / 1200 1100 / 1100 Intake: IV Fluids 1200 / 1200 1100 / 1100 0.9 % Sodium Chloride 1,000 ML 1000 / 1000 1000 / 1000 @ 125 mls/hr IVC .Q8H GLENDY Rx#: [id number] Flagyl Premix 500 MG/100 ML 500 200 / 200 100 / 100 mg In 100 ml @ 100 mls/hr IVPB Q6HR GLENDY Rx#:[id number] Other: Stool Consistency liquid Blood Glucose* 76 84 - General Appearance General appearance: Present: well-developed, well-nourished, appears started age EENT: Present: mucous membranes moist Neck: Present: no JVD Respiratory: Present: clear Cardiology: Present: no edema, regular rate, regular rhythm Gastrointestinal: Present: normoactive bowel sounds, no tenderness Integumentary: Present: warm and dry Neurologic: Present: alert and oriented x3 - Lab 07/31/17 05:11 07/31/17 05:11 Most recent lab results Calcium 7.4 mg/dL (8.6-10.3) L 07/31/17 05:11 Consult Discharge Plan - Plan [facility]errals: [facility] [Primary Care Provider] -
[2017-07-31] MEDS: Nicotine 7 MG PATCH.TD24 TD SCH (10:15)
[2017-07-31] MEDS ORDERED: *HR* Midazolam HCl 5 MG/5 ML VIAL IVP ONE (15:03)
[2017-07-31] MEDS ORDERED: *HR* FentaNYL (PF) 100 MCG/2 ML VIAL ONE (15:04)
[2017-07-31] MEDS ORDERED: *HR* Midazolam HCl 2 MG/2 ML VIAL IVP ONE (15:49)
[2017-07-31] MEDS ORDERED: Simethicone 40 MG/0.6 ML MLS IR ONE (15:49)
[2017-07-31] MEDS ORDERED: *HR* FentaNYL (PF) 100 MCG/2 ML VIAL IVP ONE ×2 (15:49→16:00)
--- NOTE | 2017-07-31 17:21 | Internal Med Progress Note ---
Date of Encounter: 07/31/17 Time of Encounter: 09:30 - Assessment and plan (1) Abdominal pain Current Visit: Yes Status: Acute Assessment and plan: Patient has chronic intermittent central/periumbilical abdominal pain, with postprandial worsening. Could be associated with mesenteric ischemia given his history of peripheral arterial disease, mild lactic acidosis at admission. Resolved lactic acidosis and leukocytosis, improving abdominal pain. Supportive care. Patient has been started on empiric IV Rocephin and Flagyl, will hold off for now. GI consulted, patient underwent colonoscopy today, which showed- multiple polyps 10-20 mm, in the ascending colon and in transverse colon. With ulcers between the polyps in ascending colon. Biopsies were not taken as patient is on aspirin and Plavix. Nonbleeding internal hemorrhoids. Surgery consulted, no further recommendations at this time. Qualifiers: Abdominal location: periumbilical Qualified Code(s): R10.33 - Periumbilical pain (2) PAD (peripheral artery disease) Current Visit: Yes Status: Chronic Assessment and plan: Underwent revascularization in bilateral lower extremities. Continue aspirin and Plavix. (3) Acute kidney injury Current Visit: Yes Status: Resolved Assessment and plan: Likely due to dehydration and volume depletion. Serum creatinine improved back to baseline with IV hydration. Renal ultrasound showed small cyst in left inferior pole. Nephrology signed off. (4) Lactic acidosis Current Visit: Yes Status: Resolved (5) DMII (diabetes mellitus, type 2) Current Visit: Yes Status: Chronic Assessment and plan: Patient is noted to have hypoglycemia with blood sugar in the 70s to 80s. Continue Accu-Chek blood glucose monitoring with low-dose sliding scale as needed, hold basal insulin for now. Diabetic diet after colonoscopy. Qualifiers: Diabetes mellitus complication status: with circulatory complication Diabetes mellitus complication detail: with peripheral angiopathy without gangrene Diabetes mellitus fci insulin use: with fci use Qualified Code(s): E11.51 - Type 2 diabetes mellitus with diabetic peripheral angiopathy without gangrene; Z79.4 - residential (current) use of insulin; Z79.4 - long term care phlebotomist (current) use of insulin; Z79.4 - residential (current) use of insulin ; Z79.4 - long term care phlebotomist (current) use of insulin (6) COPD (chronic obstructive pulmonary disease) Current Visit: Yes Status: Chronic Qualifiers: COPD type: unspecified COPD Qualified Code(s): J44.9 - Chronic obstructive pulmonary disease, unspecified (7) HTN (hypertension) Current Visit: Yes Status: Chronic Assessment and plan: Blood pressure improved since yesterday. Continue to hold antihypertensives. Qualifiers: Hypertension type: essential hypertension Qualified Code(s): I10 - Essential (primary) hypertension - Subjective Interval history: Reports feeling better. Improving abdominal pain. Completed bowel prep, awaiting colonoscopy today. No chest pain or shortness of breath. No nausea, vomiting. - Constitutional Vitals: Temp Pulse Resp BP Pulse Ox 97.9 F 81 18 108/90 91 07/31/17 16:33 07/31/17 16:33 07/31/17 16:33 07/31/17 16:33 07/31/17 16:33 General appearance: Present: A&O X 3, answers questions appropriately - Respiratory Respiratory exam: Present: CTAB. Absent: accessory muscle use, rales, rhonchi, wheezes - Cardiovascular Cardiovascular exam: Present: RRR, +S1, +S2. Absent: diastolic murmur, gallop, rubs, systolic murmur - GI/Abdominal GI/Abdominal exam: Present: normal bowel sounds, soft (obese), no peritoneal signs. Absent: distended, tenderness - Extremities Exam Extremities exam: Present: full ROM, warm, radial pulses palpable and symmetrical. Absent: calf tenderness, cyanotic, pedal edema - Neurological Exam Neurological exam: Present: CN II-XII intact, oriented X3, no focal deficits. Absent: pronater drift, facial droop, speech deficit Internal Medicine: Result - Labs CBC & Chem 7: 07/31/17 05:11 07/31/17 05:11 Labs: Short CBC 07/31/17 Range/Units 05:11 WBC 9.9 (4.3-11.1) K/mcL Hgb 9.8 L (12.9-16.9) g/dL Hct 31.2 L (37.5-50.1) % Plt Count 229 (140-400) K/mcL Neutrophils # 6.4 (1.6-8.9) K/mcL BMP 07/31/17 05:11 Sodium 135 L Potassium 4.2 Chloride 107 Carbon Dioxide 24 BUN 15 Creatinine 1.11 Glucose 75 Calcium 7.4 L - ABG Interpretation ABG results: PT/INR, D-dimer PT 12.7 Seconds (9.4-12.1) H 07/29/17 18:40 - Impressions Impressions Retroperitoneum Ultrasound 07/30/17 19:00 IMPRESSION: Small inferior pole left renal cyst of 0.79 x 1.24 cm. Otherwise unremarkable study. D/ / Kerri Alcaraz MD / Kerri Alcaraz MD Interpreting Provider: Kerri Alcaraz MD Consult Discharge Plan - Plan [facility]errals: [facility] [Primary Care Provider] -
[2017-07-31] MEDS: Insulin LISPRO 300 UNITS/3 ML VIAL SQ SCH ×4 (17:24→20:43)
[2017-07-31] MEDS: Aspirin Enteric Coated 81 MG Tablet PO SCH (17:32)
[2017-07-31] MEDS: Venlafaxine XR (24 HR) 37.5 MG CAP.ER.24H PO SCH (17:32)
[2017-08-01] MEDS: Ondansetron 4 MG/2 ML VIAL IVP SCH ×4 (02:44→17:16)
[2017-08-01] MEDS: *HR* OxyCODONE/APAP 10/325 TABLET PO PRN ×5 (03:20→21:23)
[2017-08-01] MEDS: *HR* Heparin 5,000 UNIT/ML VIAL SQ SCH ×2 (05:50→17:09)
[2017-08-01] MEDS: Pantoprazole 40 MG VIAL IVP SCH (05:50)
[2017-08-01 07:13] LABS: Basophils # 0.1 K/mcL (0.0-0.2); Basophils % 0.6 %; Eosinophils # 0.2 K/mcL (0.0-0.6); Eosinophils % 2.7 %; Hematocrit 31.1 % (37.5-50.1); Hemoglobin 9.8 g/dL (12.9-16.9); Immature Granulocytes % 0.4 % (0-4); Lymphocytes # 2.1 K/mcL (0.6-4.6); Lymphocytes % 26.7 %; Mean Corpuscular HGB Conc 31.5 g/dL (31.6-35.5); Mean Corpuscular Hemoglobin 28.1 pg (28.0-33.3); Mean Corpuscular Volume 89.1 fL (83.0-100.0); Mean Platelet Volume 11.1 fL (9.4-12.4); Monocytes # 0.5 K/mcL (0.0-1.3); Monocytes % 6.1 %; Neutrophils # 4.9 K/mcL (1.6-8.9); Platelet Count 239 K/mcL (140-400); Red Blood Count 3.49 M/mcL (4.19-5.50); Red Cell Distribution Width 14.4 % (11.5-14.5); Segmented Neutrophils % 63.5 %
[2017-08-01 08:08] LABS: BUN/Creatinine Ratio 8 (6-26); Blood Urea Nitrogen 7 mg/dL (8-23); Calcium 7.5 mg/dL (8.6-10.3); Carbon Dioxide 22 mEq/L (23-29); Chloride 110 mEq/L (98-107); Glucose 190 mg/dL (70-105); Osmolality,Calculated 289 (280-300); Potassium 3.9 mEq/L (3.5-5.1); Sodium 138 mEq/L (136-145); eGFR For African Americans > 60 (> 60); eGFR For Non-African Americans > 60 (> 60)
[2017-08-01] MEDS: Insulin DETEMIR 100 UNIT/ML X5UNITS SQ SCH ×2 (09:20→09:25)
[2017-08-01] MEDS: Aspirin Enteric Coated 81 MG Tablet PO SCH (09:21)
[2017-08-01] MEDS: Venlafaxine XR (24 HR) 37.5 MG CAP.ER.24H PO SCH (09:21)
[2017-08-01] MEDS: Nicotine 7 MG PATCH.TD24 TD SCH (09:21)
[2017-08-01] MEDS: Insulin LISPRO 300 UNITS/3 ML VIAL SQ SCH ×4 (09:26→21:24)
--- NOTE | 2017-08-01 09:29 | General Surgery Progress Note ---
Date of Encounter: 08/01/17 Time of Encounter: 08:50 Subjective Narrative: General Surgery - follow up abdominal pain with weight loss, possible abnormal CT Patient resting comfortably this morning; had a satisfying meal with excellent enteral intake last evening. Initially had no postprandial abdominal pain but apparently this slowly developed overnight. Colonoscopy results noted: Polyps noted in the ascending colon with ulceration between these polyps. No biopsies or specimens collected as the patient continues to be on aspirin and Plavix. The bowel exam was limited by the poor mechanical preparation of the colon. No described focal narrowing is noted on CT in the distal transverse colon. The findings are deemed consistent with chronic mesenteric insufficiency causing the patient's abdominal pain and weight loss. Vascular consultation recommended. Repeat colonoscopy is planned pending discontinuation of the aspirin and platelets. Impression: Chronic mesenteric insufficiency with postprandial abdominal pain and weight loss Vascular evaluation recommended No general surgical intervention (resection) anticipated at this time. Will sign off. Thank you for this consultation. Objective Vital Signs - Last 8 Hours Temp Pulse Resp BP Pulse Ox 08/01/17 07:00 97.9 F 84 18 117/61 08/01/17 04:00 98.3 F 85 19 117/66 89 Intake and Output 07/31/17 08/01/17 08/01/17 23:59 07:59 15:59 Intake Total 1280 / 1280 0 / 0 Output Total 0 / 0 0 / 0 Balance 1280 / 1280 0 / 0 Intake: Oral 1280 / 1280 0 / 0 Output: Urine 0 / 0 0 / 0 Other: Meal Dinner Percent of Meal Consumed 100% Weight 95 kg Blood Glucose* 120 258 Patient Weight 08/01/17 23:59 Weight 95 kg - Labs 08/01/17 06:34 08/01/17 06:34 Diabetes panel 08/01/17 Range/Units 06:34 Sodium 138 (136-145) mEq/L Potassium 3.9 (3.5-5.1) mEq/L Chloride 110 H (98-107) mEq/L Carbon Dioxide 22 L (23-29) mEq/L BUN 7 L (8-23) mg/dL Creatinine 0.89 (0.70-1.30) mg/dL Glucose 190 H (70-105) mg/dL Calcium 7.5 L (8.6-10.3) mg/dL Calcium panel 08/01/17 Range/Units 06:34 Calcium 7.5 L (8.6-10.3) mg/dL Pituitary panel 08/01/17 Range/Units 06:34 Sodium 138 (136-145) mEq/L Potassium 3.9 (3.5-5.1) mEq/L Chloride 110 H (98-107) mEq/L Carbon Dioxide 22 L (23-29) mEq/L BUN 7 L (8-23) mg/dL Creatinine 0.89 (0.70-1.30) mg/dL Glucose 190 H (70-105) mg/dL Calcium 7.5 L (8.6-10.3) mg/dL Adrenal panel 08/01/17 Range/Units 06:34 Sodium 138 (136-145) mEq/L Potassium 3.9 (3.5-5.1) mEq/L Chloride 110 H (98-107) mEq/L Carbon Dioxide 22 L (23-29) mEq/L BUN 7 L (8-23) mg/dL Creatinine 0.89 (0.70-1.30) mg/dL Glucose 190 H (70-105) mg/dL Calcium 7.5 L (8.6-10.3) mg/dL Consult Discharge Plan - Plan [facility]errals: [facility] [Primary Care Provider] -
[2017-08-01] MEDS: Budesonide/Formoterol 160/4.5 MDI IH SCH ×2 (11:48→21:05)
--- NOTE | 2017-08-01 14:26 | Vascular/Endovasc Consult Note ---
Date of Encounter: 08/01/17 Time of Encounter: 13:30 Assessment and Plan (1) Chronic mesenteric insufficiency Current Visit: Yes Status: Chronic The patient has angiographic findings of mesenteric artery insufficiency. This appears to be a chronic process. What is not typical however is the rapid improvement of the patient's symptoms with relatively minimal intervention. It would appear the patient has other etiologic factors including his COPD affecting his present situation. However due to the angiographic findings by the CT angiogram I recommended that the patient undergo a formal aortogram with selective mesenteric artery injections and probable mesenteric artery intervention of either the celiac and or the superior mesenteric artery. This is not an emergency due to the patient's clinical status and the recent acute kidney injury profile. This endovascular intervention will be performed next week and I am considering either Thursday or Thursday for this procedure. I reviewed this in detail with the patient. He is agreeable to this plan and wishes to proceed as recommended. The patient will need to continue his Plavix therapy and will need to be on Plavix for a minimum of 90 days following any angioplasty. He is still prescribed Plavix for 90 days following his May 2017 balloon angioplasty of the left lower extremity. (2) DMII (diabetes mellitus, type 2) Current Visit: Yes Status: Chronic Patient under medical treatment Qualifiers: Diabetes mellitus complication status: with circulatory complication Diabetes mellitus complication detail: with peripheral angiopathy without gangrene Diabetes mellitus mcc insulin use: with mcc use Qualified Code(s): E11.51 - Type 2 diabetes mellitus with diabetic peripheral angiopathy without gangrene; Z79.4 - termite control technician (current) use of insulin; Z79.4 - assisted (current) use of insulin; Z79.4 - assisted (current) use of insulin ; Z79.4 - assisted (current) use of insulin (3) COPD (chronic obstructive pulmonary disease) Current Visit: Yes Status: Chronic Patient under medical treatment. Qualifiers: COPD type: unspecified COPD Qualified Code(s): J44.9 - Chronic obstructive pulmonary disease, unspecified (4) Acute kidney injury Current Visit: Yes Status: Resolved Acute kidney injury profile has resolved during this hospitalization. (5) PAD (peripheral artery disease) Current Visit: Yes Status: Chronic Patent left lower extremity endovascular intervention for left superficial femoral artery stent occlusion from May 2017. - History of Present Illness Consult date: 08/01/17 Requesting physician: Brandie Garcia Consult reason: Abdominal pain/rule out mesenteric ischemia Chief complaint: Abdominal pain History of present illness: Mr. Walker is a 72 year old male Who was admitted on July 29 via the emergency room because of severe abdominal pain. The patient's states that he had eaten just 3 small donut holes one he developed severe abdominal pain. He was originally seen at the [place] and then he came to the hospital at [facility] for further evaluation and treatment. The patient was admitted and placed on intravenous fluid. He was seen by GI medicine and general surgery by Dr. Ryder. The patient underwent a colonoscopy as well as CT scanning of the abdomen and CT angiogram of the abdomen and pelvis. The patient had findings on the colonoscopy to suggest chronic mesenteric ischemia. No significant findings of mesenteric ischemia were noted on the CT scans. Vascular surgery was asked to see the patient at this time because of these colonoscopy findings. The patient states that he has abdominal discomfort that he describes as a sharp burning pain in the periumbilical region that occurs a half an hour to 45 minutes after eating. This may occur with any type of food. He occasionally has discomfort with drinking water but not always. He notes however in the past 24 hours he has minimal abdominal discomfort. He denies any vomiting or bloody or black bowel movements. He states that he has lost about 45 pounds over the past month. However, this does not correlate with the information available to me. He had a outpatient weight of approximately 102 kg on May 27, 2017. His weight today is 95 kg. Also odd with the patient's situation is his rather rapid symptomatic improvement suggesting there are other underlying factors present besides the potential of chronic mesenteric ischemia. I have seen this patient once before as an outpatient consultation on May. I'd seen him because of left lower extremity and left foot symptoms. He had undergone previous superficial femoral artery stent angioplasties in 2012 and 2013 at the [facility] area in March 2015 he had a balloon angioplasty of the left superficial femoral artery stent. He also had some type of an exploration of the popliteal artery at the [facility]. I had seen him in May because of left foot pain and an ankle-brachial index was measured at 0.58 on the right and 0.38 on the left. He went on to have an angiogram and endovascular intervention by myself on Hermann 22. At that time I found occlusion of his left superficial femoral artery stents and adjacent elem vessel. This was successfully balloon angioplastied. Additional findings at the time of that operation included a patent inferior mesenteric artery with a rather prominent marginal artery of [place] and indications to suggest retrograde filling of a portion of the superior mesenteric artery and possibly portions of the celiac system. However as that angiogram was focused on severe left lower extremity ischemia further intervention and diagnostic testing was not performed of the mesenteric system due to contrast limitations. The distal runoff for the patient demonstrates a patent posterior tibial artery bilaterally. The patient states that he has had resolution of his symptoms and he no longer has any left lower extremity complaints. He was unable to come to his scheduled 3 week post procedure follow-up visit because he contracted a pneumonia and was hospitalized. He has not had any lower extremity follow-up testing. The patient states he has not smoked any cigarettes since May 2017. I have reviewed the CT angiogram personally. The patient appears to have a significant stenosis of the proximal portion of the celiac axis. The proximal portion of the superior mesenteric artery appears occluded. The JESSI is patent. The iliac arteries are patent and the internal iliac arteries are patent also providing a collateral pathway. Calcific disease is noted in the juxtarenal and pararenal aorta and at the area of the renal artery orifices. Past Med Surg Social Fam HX - Past Medical History Medical history: cancer, COPD, diabetes, hyperlipidemia, hypertension, other Psychiatric history: no psych history - Past Surgical History Surgical History: angioplasty/stent (Right superficial femoral artery intervention September 2012. Left superficial femoral artery intervention November 2012. Bilateral superficial femoral artery stents December 2013. Redo balloon and plasty of left superficial femoral artery stent March 2015. These procedures were performed via the [facility]. In May 2017 he underwent balloon angioplasty of occluded left superficial femoral artery stents at [facility].), cataract, LE vascular intervention, orthopedic, other - Social History Smoking Status: Former smoker Smokeless Tobacco Status: No Alcohol use: rarely Drug use: none - Family History Mother Family Member Ethnicity: Non- Living Status: Age at : 80 Cause of : Unknown Hx Family Endocrine Disorder: Yes (DM) Daughter Family Member Ethnicity: Non- Living Status: Still Living Hx Family GI Disorders: (stomach ulcer) Son Family Member Ethnicity: Non- Living Status: Still Living Hx Family Cardiac Disorders: Yes (HTN) Hx Family Endocrine Disorder: Yes (DM) Medications and Allergies Albuterol Sulfate [Ventolin Hfa] 2 puff IH Q6H PRN 06/12/17 [History] Aspirin [Lo-Dose Aspirin EC] 81 mg PO DAILY 06/12/17 [History] Atorvastatin [Lipitor] 40 mg PO HS 06/12/17 [History] Calcium Carb/Vitamin D3/Vit K1 [Calcium + D Soft Chewable Tab] 1 each PO BID [History] Clopidogrel [Plavix] 75 mg PO DAILY #30 tablet 06/12/17 [Rx] Lisinopril [Zestril] 40 mg PO DAILY 06/12/17 [History] Metformin HCl [Glucophage] 1,000 mg PO BID 06/12/17 [History] Albuterol Neb [Proventil Neb] 2.5 mg IH Q8H PRN 07/01/17 [History] Benzonatate [Tessalon] 100 mg PO Q6H PRN 07/01/17 [History] Budesonide/Formoterol 160/4.5 [Symbicort 160/4.5] 2 puff IH BIDR 07/01/17 [ History] Carboxymethylcellulose Sodium [Refresh Liquigel] 1 drop OP TID 07/01/17 [History ] Cetirizine HCl [Zyrtec] 10 mg PO DAILY 07/01/17 [History] Cyanocobalamin (Vitamin B-12) [Vitamin B12] 1,000 mcg PO DAILY 07/01/17 [History ] GuaiFENesin/Dextromethorphan [Tussin Dm Syrup] 10 ml PO Q4H PRN 07/01/17 [ History] Insulin Glargine [Lantus] 34 unit SQ HS 07/01/17 [History] Mag Hydrox/Al Hydrox/Simeth [Antacid Suspension] 15 ml PO TIDAC 07/01/17 [ History] Nicotine Patch [Nicoderm] 7 mg TD DAILY 07/01/17 [History] Nicotine Polacrilex [Nicotine Lozenge] 2 mg BC AD PRN 07/01/17 [History] Omeprazole [PriLOSEC] 20 mg PO BIDAC 07/01/17 [History] Oxycodone HCl/Acetaminophen [Percocet 10-325 mg Tablet] 1 each PO Q6H PRN [History] Tiotropium [place] [Spiriva Respimat] 2 puff IH DAILY 07/01/17 [History] Venlafaxine XR (24 HR) [Effexor Xr] 37.5 mg PO DAILY 07/01/17 [History] glipiZIDE [Glipizide] 10 mg PO BID 07/01/17 [History] guaiFENesin [Guaifenesin] 400 mg PO Q12H 07/01/17 [History] hydroCHLOROthiazide [Hydrochlorothiazide] 25 mg PO DAILY 07/01/17 [History] Ondansetron HCl [Zofran] 2 mg PO TID PRN 07/29/17 [History] Ranitidine HCl [Zantac] 150 mg PO BID 07/29/17 [History] amLODIPine [Norvasc] 5 mg PO DAILY 07/29/17 [History] 3 Allergy/AdvReac Type Severity Reaction Status Date / Time No Known Allergies Allergy Verified 06/12/17 06:54 All Systems Review: A 10-system review of systems was performed and is negative for pertinent findings except as documented above in the HPI. Exam Vital Signs, Last 4 Hours Resp Pulse Ox 08/01/17 11:48 18 92 General: Present: Conversant, No Apparent Distress, Well developed, Well nourished HEENT: Present: Atraumatic, Normocephaly, Trachea midline Neck: Absent: JVD, Midline deformity, Tracheal deviation Cardiac: Present: Reg Rate and Rhythm, Normal S1 and S2 Lungs: Present: Decreased breath sounds Neuro: Present: Alert and responsive, No focal deficits noted, Cranial nerves grossly intact, Motor nerves grossly intact, Sensory nerves grossly intact Abdomen: Present: Soft, Other (Mild tenderness diffusely. No guarding. No abdominal bruits.). Absent: Masses Vascular: Present: Pulse, normal (Palpable femoral pulses without femoral bruits.), Color/Temperature (Feet are warm with 2 second capillary refill of the toes. No cyanosis of toes.) Skin: Present: No rashes noted on visualized skin Consult Discharge Plan - Plan [facility]: [facility] [Primary Care Provider] -
--- NOTE | 2017-08-01 17:26 | Internal Med Progress Note ---
Date of Encounter: 08/01/17 Time of Encounter: 12:15 - Assessment and plan (1) Abdominal pain Current Visit: Yes Status: Acute Assessment and plan: Patient has chronic intermittent central/periumbilical abdominal pain, with postprandial worsening. Could be associated with mesenteric ischemia given his history of peripheral arterial disease, mild lactic acidosis at admission. Resolved lactic acidosis and leukocytosis, improving abdominal pain. Supportive care. GI consulted, patient underwent colonoscopy today, which showed- multiple polyps 10-20 mm, in the ascending colon and in transverse colon. With ulcers between the polyps in ascending colon. Biopsies were not taken as patient is on aspirin and Plavix. Nonbleeding internal hemorrhoids. Surgery consulted, no further recommendations at this time. Case discussed in detail with vascular surgery, recommend no urgent intervention. Plan for non-urgent formal aortogram with selective mesenteric artery injections with further intervention as necessary. Qualifiers: Abdominal location: periumbilical Qualified Code(s): R10.33 - Periumbilical pain (2) PAD (peripheral artery disease) Current Visit: Yes Status: Chronic Assessment and plan: Underwent revascularization in bilateral lower extremities. Continue aspirin and Plavix. (3) Acute kidney injury Current Visit: Yes Status: Resolved (4) Lactic acidosis Current Visit: Yes Status: Resolved (5) DMII (diabetes mellitus, type 2) Current Visit: Yes Status: Chronic Assessment and plan: Improving blood sugars. Continue Accu-Chek blood glucose monitoring with low- dose sliding scale as needed. Diabetic diet. Qualifiers: Diabetes mellitus complication status: with circulatory complication Diabetes mellitus complication detail: with peripheral angiopathy without gangrene Diabetes mellitus jail insulin use: with rat exterminator use Qualified Code(s): E11.51 - Type 2 diabetes mellitus with diabetic peripheral angiopathy without gangrene; Z79.4 - buttermaker continuous churn (current) use of insulin; Z79.4 - [facility] (current) use of insulin; Z79.4 - buttermaker continuous churn (current) use of insulin ; Z79.4 - [facility] (current) use of insulin (6) COPD (chronic obstructive pulmonary disease) Current Visit: Yes Status: Chronic Assessment and plan: Not in acute exacerbation. Continue as needed bronchodilators and supplemental oxygen. Qualifiers: COPD type: unspecified COPD Qualified Code(s): J44.9 - Chronic obstructive pulmonary disease, unspecified (7) HTN (hypertension) Current Visit: Yes Status: Chronic Assessment and plan: Blood pressure stable. Continue to hold antihypertensives. Qualifiers: Hypertension type: essential hypertension Qualified Code(s): I10 - Essential (primary) hypertension - Subjective Interval history: Improving abdominal pain. No nausea, vomiting, diarrhea. Anxious to have chronic abdominal pain taken care of. - Constitutional Vitals: Temp Pulse Resp BP Pulse Ox 98.2 F 93 18 124/64 98 08/01/17 16:00 08/01/17 16:00 08/01/17 16:00 08/01/17 16:00 08/01/17 16:00 General appearance: Present: A&O X 3, answers questions appropriately - Respiratory Respiratory exam: Present: CTAB (Coarse breath sounds bilaterally). Absent: accessory muscle use, rales, rhonchi, wheezes - Cardiovascular Cardiovascular exam: Present: RRR, +S1, +S2. Absent: diastolic murmur, gallop, rubs, systolic murmur - GI/Abdominal GI/Abdominal exam: Present: normal bowel sounds, soft, no peritoneal signs. Absent: distended, tenderness - Extremities Exam Extremities exam: Present: full ROM, warm, radial pulses palpable and symmetrical. Absent: calf tenderness, cyanotic, pedal edema Internal Medicine: Result - Labs CBC & Chem 7: 08/01/17 06:34 08/01/17 06:34 Labs: Short CBC 08/01/17 Range/Units 06:34 WBC 7.7 (4.3-11.1) K/mcL Hgb 9.8 L (12.9-16.9) g/dL Hct 31.1 L (37.5-50.1) % Plt Count 239 (140-400) K/mcL Neutrophils # 4.9 (1.6-8.9) K/mcL BMP 08/01/17 06:34 Sodium 138 Potassium 3.9 Chloride 110 H Carbon Dioxide 22 L BUN 7 L Creatinine 0.89 Glucose 190 H Calcium 7.5 L - ABG Interpretation ABG results: PT/INR, D-dimer PT 12.7 Seconds (9.4-12.1) H 07/29/17 18:40 Consult Discharge Plan - Plan [facility]errals: [facility] [Primary Care Provider] -
[2017-08-02] MEDS: Ondansetron 4 MG/2 ML VIAL IVP SCH ×3 (01:07→12:14)
[2017-08-02] MEDS: *HR* OxyCODONE/APAP 10/325 TABLET PO PRN ×4 (01:09→13:50)
[2017-08-02] MEDS: *HR* Heparin 5,000 UNIT/ML VIAL SQ SCH (05:22)
[2017-08-02] MEDS: Budesonide/Formoterol 160/4.5 MDI IH SCH (08:28)
[2017-08-02] MEDS: Insulin DETEMIR 100 UNIT/ML X5UNITS SQ SCH (09:46)
[2017-08-02] MEDS: Aspirin Enteric Coated 81 MG Tablet PO SCH (09:46)
[2017-08-02] MEDS: Venlafaxine XR (24 HR) 37.5 MG CAP.ER.24H PO SCH (09:46)
[2017-08-02] MEDS: Nicotine 7 MG PATCH.TD24 TD SCH (09:47)
[2017-08-02] MEDS: Insulin LISPRO 300 UNITS/3 ML VIAL SQ SCH (09:54)
[2017-08-02 11:49] VITALS: BP 151/75
--- NOTE | 2017-08-02 12:10 | Discharge Summary ---
Date of Encounter: 08/02/17 Time of Encounter: 12:08 - Discharge Diagnosis (1) Abdominal pain Priority: Primary Status: Acute Qualifiers: Abdominal location: periumbilical Qualified Code(s): R10.33 - Periumbilical pain (2) PAD (peripheral artery disease) Priority: Secondary Status: Chronic (3) Acute kidney injury Priority: Primary Status: Resolved (4) Lactic acidosis Priority: Primary Status: Resolved (5) DMII (diabetes mellitus, type 2) Priority: Secondary Status: Chronic Qualifiers: Diabetes mellitus complication status: with circulatory complication Diabetes mellitus complication detail: with peripheral angiopathy without gangrene Diabetes mellitus continuous churn buttermaker insulin use: with assisted use Qualified Code(s): E11.51 - Type 2 diabetes mellitus with diabetic peripheral angiopathy without gangrene; Z79.4 - superintendent terminal (current) use of insulin; Z79.4 - superintendent terminal (current) use of insulin; Z79.4 - superintendent terminal (current) use of insulin ; Z79.4 - [facility]P (current) use of insulin (6) COPD (chronic obstructive pulmonary disease) Priority: Secondary Status: Chronic Qualifiers: COPD type: unspecified COPD Qualified Code(s): J44.9 - Chronic obstructive pulmonary disease, unspecified (7) HTN (hypertension) Priority: Secondary Status: Chronic Qualifiers: Hypertension type: essential hypertension Qualified Code(s): I10 - Essential (primary) hypertension (8) Chronic mesenteric insufficiency Priority: Primary Status: Chronic - Discharge Medications Home Medications: Albuterol Sulfate [Ventolin Hfa] 2 puff IH Q6H PRN 06/12/17 [History] Aspirin [Lo-Dose Aspirin EC] 81 mg PO DAILY 06/12/17 [History] Atorvastatin [Lipitor] 40 mg PO HS 06/12/17 [History] Calcium Carb/Vitamin D3/Vit K1 [Calcium + D Soft Chewable Tab] 1 each PO BID [History] Clopidogrel [Plavix] 75 mg PO DAILY #30 tablet 06/12/17 [Rx] Lisinopril [Zestril] 40 mg PO DAILY 06/12/17 [History] Metformin HCl [Glucophage] 1,000 mg PO BID 06/12/17 [History] Albuterol Neb [Proventil Neb] 2.5 mg IH Q8H PRN 07/01/17 [History] Benzonatate [Tessalon] 100 mg PO Q6H PRN 07/01/17 [History] Budesonide/Formoterol 160/4.5 [Symbicort 160/4.5] 2 puff IH BIDR 07/01/17 [ History] Carboxymethylcellulose Sodium [Refresh Liquigel] 1 drop OP TID 07/01/17 [History ] Cetirizine HCl [Zyrtec] 10 mg PO DAILY 07/01/17 [History] Cyanocobalamin (Vitamin B-12) [Vitamin B12] 1,000 mcg PO DAILY 07/01/17 [History ] GuaiFENesin/Dextromethorphan [Tussin Dm Syrup] 10 ml PO Q4H PRN 07/01/17 [ History] Mag Hydrox/Al Hydrox/Simeth [Antacid Suspension] 15 ml PO TIDAC 07/01/17 [ History] Nicotine Patch [Nicoderm] 7 mg TD DAILY 07/01/17 [History] Nicotine Polacrilex [Nicotine Lozenge] 2 mg BC AD PRN 07/01/17 [History] Omeprazole [PriLOSEC] 20 mg PO BIDAC 07/01/17 [History] Oxycodone HCl/Acetaminophen [Percocet 10-325 mg Tablet] 1 each PO Q6H PRN [History] Tiotropium [place] [Spiriva Respimat] 2 puff IH DAILY 07/01/17 [History] Venlafaxine XR (24 HR) [Effexor Xr] 37.5 mg PO DAILY 07/01/17 [History] glipiZIDE [Glipizide] 10 mg PO BID 07/01/17 [History] guaiFENesin [Guaifenesin] 400 mg PO Q12H 07/01/17 [History] Ondansetron HCl [Zofran] 2 mg PO TID PRN 07/29/17 [History] Ranitidine HCl [Zantac] 150 mg PO BID 07/29/17 [History] amLODIPine [Norvasc] 5 mg PO DAILY 07/29/17 [History] Insulin Glargine [Lantus] 20 unit SQ HS 30 Days #0 08/02/17 [Rx] Allergies/Adverse Reactions: 3 Allergy/AdvReac Type Severity Reaction Status Date / Time No Known Allergies Allergy Verified 06/12/17 06:54 Procedures/tests Complete & Pending: Procedures Performed prior 72 hours Category Date Time Status Retroperitoneal Ultrasound - Complete [US Exams 07/30/17 19:00 Completed retroperitoneal comp] [US] Routine Date of admission: 07/30/17 04:51 Primary care physician: PCP [facility] Consults: 07/30/17 14:30 Consult to Surgery [CONS] Routine Consulting Provider: [facility] [place] Reason for Consult: Abdominal pain, worse post-prandial, mild lactic acidosis Call Completed: Yes 08/01/17 12:06 Consult to Vascular Surgery [CONS] Routine Consulting Provider: Vascular Surgery [place] Reason for Consult: Mesenteric ischemia Call Completed: Yes Discharging clinician: Brandie Garcia Anticipated date of discharge: 08/02/17 - Patient Status Disposition: Home, Self-Care Condition: Good Functional capacity at discharge: independent ambulation Overall status at discharge: patient is progressing back to baseline - Discharge Instructions Instructions: Insulin Glargine (Injection), Chronic Obstructive Pulmonary Disease (DC) [facility] With: [facility] [Primary Care Provider[facility] - Additional Instructions: F/up with PCP in 1-2 weeks F/up with as scheduled; please call his office on 08/03/17; - Diet and Activity Activity: resume usual activities as tolerated Diet: diabetic diet, low fat, low cholesterol, low salt diet Hospital course: Mr. Walker is a 72 year old male with the above medical problems, who was admitted with progressively worsening periUmbilical postprandial abdominal pain. CT angiogram of abdomen/pelvis done in the emergency room showed- non- opacification of the proximal 2 cm of the superior mesenteric artery which has dense calcifications at its origin, distal filling of the artery with contrast noted. Suspected focal peristalsis of the distal transverse colon versus less likely focal narrowing. Patient was started on conservative medical management with bowel rest, IV hydration, supportive care with when necessary antiemetics and narcotic analgesics. Patient also had mild lactic acidosis at admission, which quickly resolved with IV hydration. Given postprandial pain, mild lactic acidosis, history of peripheral arterial disease with bilateral lower extremity revascularization procedures, his abdominal pain may be related to chronic mesenteric ischemia. Gastroenterology was consulted and patient underwent colonoscopy, which showed multiple 10-20 mm polyps in the ascending colon and transverse colon. There were ulcers in between the polyps in the ascending colon. Biopsies were not sent due to patient being on aspirin and Plavix. Surgery was consulted, recommended no acute surgical intervention. Patient also had acute kidney injury at the time of admission, likely due to hypotension, poor oral intake. Nephrology was consulted and helped with the management. Serum creatinine responded well to IV hydration and gradually normalized. He was noted to have hypotension and hypoglycemia at admission, antihypertensives and long-acting insulin very initially held. Blood pressure and blood sugars are currently normal and his medications will be resumed at discharge. Vascular surgery was consulted and recommended formal aortogram with selective mesenteric artery injections and probable mesenteric artery intervention of either the celiac and or the superior mesenteric artery. Patient significantly clinically improved at this time, with improved abdominal pain, tolerates oral diet and is otherwise medically stable. Since aortogram is not an urgent procedure, he is being discharged at this time, patient will be called by vascular surgery clinic for further scheduling appointments. - Time Spent with Patient Total time spent providing and/or coordinating discharge services: Greater than 30 minutes (45 min) - Constitutional Vitals: Temp Pulse Resp BP Pulse Ox 97.9 F 70 18 151/75 97 08/02/17 11:44 08/02/17 11:44 08/02/17 11:44 08/02/17 11:44 08/02/17 11:44 General appearance: Present: A&O X 3, answers questions appropriately - Respiratory Respiratory exam: Present: CTAB. Absent: accessory muscle use, rales, rhonchi, wheezes
== END 2017-08-02 14:30 | disposition home or self-care (01) | DRG 683 ==
LOC: 2NENU 15:42 → EMEROO 15:42 → 2NENU 20:34 → SUATTDRO 07-30 04:51
PROVIDERS: ADMIT Family Medicine; ATTEND Internal Medicine

== ENCOUNTER 2021-10-13 21:16 | Inpatient (IN) ==
[2021-10-13] MEDS ORDERED: Isovue-370 500 ML BOTTLE IVP ONE (21:36)
[2021-10-13 21:49] LABS: Hematocrit 42.3 % (37.5-50.1); Hemoglobin 13.5 g/dL (12.9-16.9); Mean Corpuscular HGB Conc 31.9 g/dL (31.6-35.5); Mean Corpuscular Hemoglobin 29.9 pg (28.0-33.3); Mean Corpuscular Volume 93.6 fL (83.0-100.0); Mean Platelet Volume 10.8 fL (9.4-12.4); Platelet Count 241 K/mcL (140-400); Red Blood Count 4.52 M/mcL (4.19-5.50); Red Cell Distribution Width 13.4 % (11.5-14.5); White Blood Count 9.1 K/mcL (4.3-11.1)
[2021-10-13 21:57] LABS: INR 1.1
[2021-10-13 22:00] LABS: Activated Partial Thrombo Time 36.6 Seconds (26.0-36.0)
[2021-10-13 22:12] LABS: BUN/Creatinine Ratio 19 (6-26); Blood Urea Nitrogen 24 mg/dL (8-23); Calcium 9.4 mg/dL (8.6-10.3); Carbon Dioxide 22 mEq/L (23-29); Chloride 102 mEq/L (98-107); Glucose 236 mg/dL (70-105); Osmolality,Calculated 298 (280-300); Potassium 3.6 mEq/L (3.5-5.1); Sodium 138 mEq/L (136-145); Troponin I < 0.03 ng/mL (< 0.04); eGFR For African Americans > 60 (> 60); eGFR For Non-African Americans 55 (> 60)
[2021-10-13 22:27] LABS: Ethanol < 10 mg/dL (Less than 10)
[2021-10-13 22:55] LABS: Alanine Aminotransferase 8 Units/L (7-52); Albumin 3.8 g/dL (3.5-5.7); Albumin/Globulin Ratio 1.3 (1.1-2.2); Alkaline Phosphatase 61 Units/L (34-104); Aspartate Amino Transferase 11 Units/L (13-39); Bilirubin,Direct 0.1 mg/dL (0.0-0.2); Bilirubin,Indirect 0.4 mg/dL (0.0-1.0); Bilirubin,Total 0.5 mg/dL (0.3-1.0); Globulin 2.9 g/dL (2.4-3.5); Total Protein 6.7 g/dL (6.4-8.9)
[2021-10-13 22:58] LABS: VBG HCO3 25 mEq/L (21-27); VBG PCO2 39 mmHg (41-51); VBG PH 7.42 pH Units (7.32-7.42); VBG PO2 81 mmHg (25-50)
[2021-10-14 00:44] LABS: Bilirubin,Urine Negative (Negative); Blood,Urine Negative (Negative); Clarity,Urine Clear (Clear); Color,Urine Light-Yellow (Yellow); Glucose,Urine (UA) Normal (Normal); Ketones,Urine Negative (Negative); Leukocyte Esterase,Urine Negative (Negative); Nitrite,Urine Negative (Negative); Protein,Urine Trace mg/dL (Neg-Trace); Urobilinogen,Urine Normal (Normal)
[2021-10-14 00:54] LABS: Amphetamine Screen,Urine Negative ng/mL (Cutoff=1000); Barbiturate Screen,Urine Negative ng/mL (Cutoff=200); Benzodiazepines Screen,Urine Negative ng/mL (Cutoff=200); Cannabinoid Screen,Urine Negative ng/mL (Cutoff = 50); Cocaine Screen,Urine Negative ng/mL (Cutoff= 300); Opiate Screen,Urine Negative ng/mL (Cutoff=300); Phencyclidine Screen,Urine Negative ng/mL (Cutoff=25)
[2021-10-14] MEDS ORDERED: Melatonin 3 MG TABLET PO PRN (01:15)
[2021-10-14] MEDS ORDERED: Naloxone 0.4 MG/ML INJ IVP PRN (01:15)
[2021-10-14] MEDS ORDERED: Dextrose 4 GM Chewable Tablets PO PRN ×2 (01:25)
[2021-10-14] MEDS ORDERED: D5% in Water 1,000 ML IVC PRN (01:25)
[2021-10-14] MEDS ORDERED: *HR* Dextrose 50 % in Water (Syg) 50 ML SYRINGE IVP PRN (01:25)
[2021-10-14] MEDS ORDERED: Ringers Solution, Lactated 1,000 ML IVC SCH (02:15)
[2021-10-14] MEDS: Aspirin Enteric Coated 81 MG Tablet PO SCH (02:40)
[2021-10-14 04:40] LABS: Hemoglobin 13.3 g/dL (12.9-16.9); Mean Corpuscular HGB Conc 32.4 g/dL (31.6-35.5); Mean Corpuscular Hemoglobin 29.9 pg (28.0-33.3); Mean Corpuscular Volume 92.1 fL (83.0-100.0); Mean Platelet Volume 10.8 fL (9.4-12.4); Platelet Count 227 K/mcL (140-400); Red Blood Count 4.45 M/mcL (4.19-5.50); Red Cell Distribution Width 13.4 % (11.5-14.5); White Blood Count 8.2 K/mcL (4.3-11.1)
[2021-10-14 05:39] LABS: BUN/Creatinine Ratio 21 (6-26); Blood Urea Nitrogen 23 mg/dL (8-23); Calcium 9.3 mg/dL (8.6-10.3); Carbon Dioxide 27 mEq/L (23-29); Chloride 103 mEq/L (98-107); Glucose 109 mg/dL (70-105); Magnesium 1.5 mg/dL (1.6-2.6); Osmolality,Calculated 294 (280-300); Phosphorous 3.2 mg/dL (2.7-4.5); Potassium 3.4 mEq/L (3.5-5.1); Sodium 140 mEq/L (136-145); eGFR For African Americans > 60 (> 60); eGFR For Non-African Americans > 60 (> 60)
[2021-10-14 06:47] LABS: Estimated Average Glucose 123 mg/dl; Hemoglobin A1C 5.9 %
[2021-10-14] MEDS: Insulin LISPRO 300 UNITS/3 ML VIAL SUBQ SCH ×4 (07:33→20:56)
[2021-10-14] MEDS ORDERED: Perflutren Lipid Microsphere 1.3 ML in 0.9 % Sodium Chloride 8.7 ML IVP PRN (08:11)
[2021-10-14] MEDS ORDERED: Insulin DETEMIR 100 UNIT/ML X5UNITS SUBQ SCH (09:00)
[2021-10-14] MEDS: Venlafaxine XR (24 HR) 37.5 MG CAP.ER.24H PO SCH (09:26)
[2021-10-14] MEDS: amLODIPine 5 MG TABLET PO SCH (09:26)
[2021-10-14] MEDS: Cyanocobalamin (B-12) 1,000 MCG TABLET PO SCH (09:26)
[2021-10-14] MEDS: Budesonide/Formoterol 160/4.5 1 PUFF INH IH SCH ×2 (11:37→20:00)
[2021-10-14] MEDS: *HR* Heparin 5,000 UNIT/ML VIAL SQ SCH (17:09)
[2021-10-14] MEDS: Insulin DETEMIR 100 UNIT/ML X5UNITS SUBQ SCH (21:01)
[2021-10-15] MEDS: *HR* Heparin 5,000 UNIT/ML VIAL SQ SCH ×2 (05:35→16:19)
[2021-10-15 06:31] LABS: BUN/Creatinine Ratio 13 (6-26); Blood Urea Nitrogen 14 mg/dL (8-23); Calcium 9.6 mg/dL (8.6-10.3); Carbon Dioxide 27 mEq/L (23-29); Chloride 104 mEq/L (98-107); Glucose 97 mg/dL (70-105); Magnesium 1.8 mg/dL (1.6-2.6); Osmolality,Calculated 292 (280-300); Phosphorous 3.3 mg/dL (2.7-4.5); Potassium 3.7 mEq/L (3.5-5.1); Sodium 141 mEq/L (136-145); eGFR For African Americans > 60 (> 60); eGFR For Non-African Americans > 60 (> 60)
[2021-10-15] MEDS: Insulin LISPRO 300 UNITS/3 ML VIAL SUBQ SCH ×4 (07:23→23:03)
[2021-10-15] MEDS: Budesonide/Formoterol 160/4.5 1 PUFF INH IH SCH ×2 (07:47→20:06)
[2021-10-15] MEDS: amLODIPine 5 MG TABLET PO SCH (07:53)
[2021-10-15] MEDS: Cyanocobalamin (B-12) 1,000 MCG TABLET PO SCH (07:53)
[2021-10-15] MEDS: Aspirin Enteric Coated 81 MG Tablet PO SCH (07:53)
[2021-10-15] MEDS: Venlafaxine XR (24 HR) 37.5 MG CAP.ER.24H PO SCH (07:53)
[2021-10-15] MEDS: Insulin DETEMIR 100 UNIT/ML X5UNITS SUBQ SCH (23:03)
[2021-10-16] MEDS: *HR* Heparin 5,000 UNIT/ML VIAL SQ SCH ×2 (06:24→17:25)
[2021-10-16] MEDS: Budesonide/Formoterol 160/4.5 1 PUFF INH IH SCH ×2 (07:22→20:00)
[2021-10-16] MEDS ORDERED: lisinopriL 5 MG TABLET PO SCH (09:00)
[2021-10-16] MEDS: Aspirin Enteric Coated 81 MG Tablet PO SCH (09:09)
[2021-10-16] MEDS: Insulin LISPRO 300 UNITS/3 ML VIAL SUBQ SCH ×4 (09:09→20:00)
[2021-10-16] MEDS: amLODIPine 5 MG TABLET PO SCH (09:09)
[2021-10-16] MEDS: Venlafaxine XR (24 HR) 37.5 MG CAP.ER.24H PO SCH (09:09)
[2021-10-16] MEDS: Cyanocobalamin (B-12) 1,000 MCG TABLET PO SCH (09:09)
[2021-10-16] MEDS: Insulin DETEMIR 100 UNIT/ML X5UNITS SUBQ SCH (20:36)
[2021-10-17] MEDS: *HR* Heparin 5,000 UNIT/ML VIAL SQ SCH ×2 (04:53→17:18)
[2021-10-17] MEDS: Budesonide/Formoterol 160/4.5 1 PUFF INH IH SCH ×2 (07:47→20:44)
[2021-10-17] MEDS: Insulin LISPRO 300 UNITS/3 ML VIAL SUBQ SCH ×4 (07:49→21:01)
[2021-10-17] MEDS: Cyanocobalamin (B-12) 1,000 MCG TABLET PO SCH (08:29)
[2021-10-17] MEDS: Venlafaxine XR (24 HR) 37.5 MG CAP.ER.24H PO SCH (08:29)
[2021-10-17] MEDS: amLODIPine 5 MG TABLET PO SCH (08:29)
[2021-10-17] MEDS: lisinopriL 10 MG TABLET PO SCH (08:29)
[2021-10-17] MEDS: Aspirin Enteric Coated 81 MG Tablet PO SCH (08:30)
[2021-10-17] MEDS: Insulin DETEMIR 100 UNIT/ML X5UNITS SUBQ SCH (20:59)
[2021-10-18] MEDS: *HR* Heparin 5,000 UNIT/ML VIAL SQ SCH (05:38)
[2021-10-18] MEDS: Insulin LISPRO 300 UNITS/3 ML VIAL SUBQ SCH (07:17)
[2021-10-18] MEDS: Budesonide/Formoterol 160/4.5 1 PUFF INH IH SCH (07:45)
[2021-10-18] MEDS: Aspirin Enteric Coated 81 MG Tablet PO SCH (09:24)
[2021-10-18] MEDS: Cyanocobalamin (B-12) 1,000 MCG TABLET PO SCH (09:24)
[2021-10-18] MEDS: Venlafaxine XR (24 HR) 37.5 MG CAP.ER.24H PO SCH (09:24)
[2021-10-18] MEDS: amLODIPine 5 MG TABLET PO SCH (09:24)
[2021-10-18] MEDS: lisinopriL 10 MG TABLET PO SCH (09:24)
[2021-10-18 10:11] LABS: Influenza A PCR Negative (Negative); Influenza B PCR Negative (Negative); Resp. Syncytial Virus PCR Negative (Negative)
[2021-10-18 10:39] LABS: SARS-CoV-2 by PCR (In House) Negative (Negative)
[2021-10-18 10:44] VITALS: BP 130/75; PULSE 70; TEMP 97.8; O2SAT 98
== END 2021-10-18 11:57 | DRG 65 ==
LOC: 3BNU 21:16 → EMEROOARM 21:16 → SUATTDRO 10-14 01:18 → 3BNU 10-14 01:53
PROVIDERS: ADMIT Internal Medicine; ATTEND Internal Medicine

== ENCOUNTER 2022-02-18 20:05 | Inpatient (IN) ==
[2022-02-18 21:44] LABS: Hematocrit 17.8 % (37.5-50.1); Immature Granulocytes % 0.3 % (0-4); Red Cell Distribution Width 15.1 % (11.5-14.5)
[2022-02-18 21:46] LABS: Basophils # 0.1 K/mcL (0.0-0.2); Eosinophils # 0.1 K/mcL (0.0-0.6); Eosinophils % 2.1 %; Lymphocytes # 1.6 K/mcL (0.6-4.6); Lymphocytes % 25.8 %; Mean Corpuscular HGB Conc 28.7 g/dL (31.6-35.5); Mean Corpuscular Volume 80.2 fL (83.0-100.0); Monocytes # 0.6 K/mcL (0.0-1.3); Monocytes % 9.6 %; Nucleated Red Blood Cells 0.5 /100 WBC (0); Platelet Count 299 K/mcL (140-400); Red Blood Count 2.22 M/mcL (4.19-5.50); Segmented Neutrophils % 61.2 %; White Blood Count 6.3 K/mcL (4.3-11.1)
[2022-02-18 21:51] LABS: INR 1.2; Prothrombin Time 13.6 Seconds (9.4-12.1)
[2022-02-18 22:03] LABS: Neutrophils # 3.9 K/mcL (1.6-8.9)
[2022-02-18 22:05] LABS: Alanine Aminotransferase 12 Units/L (7-52); Albumin 3.7 g/dL (3.5-5.7); Albumin/Globulin Ratio 1.5 (1.1-2.2); Alkaline Phosphatase 53 Units/L (34-104); Aspartate Amino Transferase 16 Units/L (13-39); BUN/Creatinine Ratio 18 (6-26); Bilirubin,Direct 0.1 mg/dL (0.0-0.2); Bilirubin,Indirect 0.4 mg/dL (0.0-1.0); Bilirubin,Total 0.5 mg/dL (0.3-1.0); Blood Urea Nitrogen 23 mg/dL (8-23); Calcium 8.6 mg/dL (8.6-10.3); Carbon Dioxide 27 mEq/L (23-29); Chloride 105 mEq/L (98-107); Globulin 2.5 g/dL (2.4-3.5); Glucose 62 mg/dL (70-105); Hemoglobin 5.1 g/dL (12.9-16.9); Osmolality,Calculated 292 (280-300); Potassium 3.2 mEq/L (3.5-5.1); Sodium 140 mEq/L (136-145); Total Protein 6.2 g/dL (6.4-8.9)
[2022-02-18 22:31] LABS: Hypochromasia Present (Not Present); Microcytosis Present (Not Present); Platelet Estimate Normal (Normal)
[2022-02-18] MEDS ORDERED: Melatonin 3 MG TABLET PO PRN (22:35)
[2022-02-18] MEDS ORDERED: Ondansetron ODT 4 MG TAB.RAPDIS SL PRN (22:35)
[2022-02-18] MEDS ORDERED: Naloxone 0.4 MG/ML INJ IVP PRN (22:35)
[2022-02-18] MEDS ORDERED: D5% in Water 1,000 ML IVC PRN (22:57)
[2022-02-18] MEDS ORDERED: Dextrose Gel 15 GM/37.5 ML TUBE PO PRN ×2 (22:57)
[2022-02-18] MEDS ORDERED: *HR* Dextrose 50 % in Water (Syg) 50 ML SYRINGE IVP PRN (22:57)
[2022-02-18] MEDS ORDERED: Ringers Solution, Lactated 1,000 ML IVC SCH (23:00)
[2022-02-18 23:09] LABS: Iron < 10 mcg/dL (65-175); Transferrin 286 mg/dL (203-362)
[2022-02-18] MEDS ORDERED: 0.9 % Sodium Chloride 250 ML ONE (23:11)
[2022-02-18 23:34] LABS: Ferritin 9 ng/mL (20-250); Folate 17.6 ng/mL (3.0-16.0)
[2022-02-19] MEDS: Insulin LISPRO 300 UNITS/3 ML VIAL SUBQ SCH ×4 (00:44→17:09)
[2022-02-19] MEDS ORDERED: Potassium Chloride Elixir 20 MEQ/15 ML UDC PO ONE (01:23)
[2022-02-19] MEDS: Pantoprazole 40 MG VIAL IVP SCH ×3 (01:39→17:13)
[2022-02-19] MEDS ORDERED: 0.9 % Sodium Chloride 250 ML ONE (03:14)
[2022-02-19] MEDS ORDERED: Tiotropium 10 INH DOSE IH ONE (07:37)
[2022-02-19] MEDS: Tiotropium 10 INH DOSE IH SCH (07:38)
[2022-02-19 08:39] LABS: Hematocrit 25.5 % (37.5-50.1); Mean Corpuscular HGB Conc 29.4 g/dL (31.6-35.5); Mean Corpuscular Hemoglobin 24.4 pg (28.0-33.3); Mean Corpuscular Volume 83.1 fL (83.0-100.0); Mean Platelet Volume 10.7 fL (9.4-12.4); Platelet Count 272 K/mcL (140-400); Red Blood Count 3.07 M/mcL (4.19-5.50); Red Cell Distribution Width 15.5 % (11.5-14.5); White Blood Count 7.5 K/mcL (4.3-11.1)
[2022-02-19 08:41] LABS: Hemoglobin 7.5 g/dL (12.9-16.9)
[2022-02-19 08:49] LABS: INR 1.1; Prothrombin Time 12.5 Seconds (9.4-12.1)
[2022-02-19] MEDS: Venlafaxine XR (24 HR) 37.5 MG CAP.ER.24H PO SCH ×2 (09:00→09:02)
[2022-02-19 09:05] LABS: Calcium 8.1 mg/dL (8.6-10.3); Magnesium 1.7 mg/dL (1.6-2.6); Phosphorous 3.5 mg/dL (2.7-4.5); Potassium 3.8 mEq/L (3.5-5.1); Troponin I 0.47 ng/mL (< 0.04)
[2022-02-20] MEDS: Insulin LISPRO 300 UNITS/3 ML VIAL SUBQ SCH ×4 (00:22→17:57)
[2022-02-20 03:08] LABS: Hematocrit 24.7 % (37.5-50.1); Hemoglobin 7.2 g/dL (12.9-16.9)
[2022-02-20] MEDS: Pantoprazole 40 MG VIAL IVP SCH (05:41)
[2022-02-20] MEDS: Tiotropium 10 INH DOSE IH SCH (07:33)
[2022-02-20] MEDS: Venlafaxine XR (24 HR) 37.5 MG CAP.ER.24H PO SCH (07:39)
[2022-02-20] MEDS: Ringers Solution, Lactated 1,000 ML IVC SCH (09:40)
[2022-02-20] MEDS: Budesonide/Formoterol 160/4.5 1 PUFF INH IH SCH ×2 (10:06→20:43)
[2022-02-20] MEDS ORDERED: Lidocaine -MPF 2% 5 ML VIAL ONE (10:26)
[2022-02-20] MEDS: Insulin DETEMIR 100 UNIT/ML X5UNITS SUBQ SCH (11:23)
[2022-02-20] MEDS: hydroCHLOROthiazide 25 MG TABLET PO SCH (11:23)
[2022-02-20] MEDS: Cyanocobalamin (B-12) 1,000 MCG TABLET PO SCH (11:23)
[2022-02-20] MEDS: amLODIPine 5 MG TABLET PO SCH (11:23)
[2022-02-20] MEDS: *HR* OxyCODONE/APAP 10/325 TABLET PO PRN ×2 (12:20→21:11)
[2022-02-20 12:38] LABS: Influenza A PCR Negative (Negative); Influenza B PCR Negative (Negative); Resp. Syncytial Virus PCR Negative (Negative)
[2022-02-20 13:08] LABS: SARS-CoV-2 by PCR (In House) Negative (Negative)
[2022-02-21] MEDS: Insulin LISPRO 300 UNITS/3 ML VIAL SUBQ SCH ×3 (00:32→12:26)
[2022-02-21] MEDS: Ringers Solution, Lactated 1,000 ML IVC SCH (06:44)
[2022-02-21] MEDS: *HR* OxyCODONE/APAP 10/325 TABLET PO PRN ×2 (06:57→12:26)
[2022-02-21] MEDS: Tiotropium 10 INH DOSE IH SCH (07:27)
[2022-02-21] MEDS: Budesonide/Formoterol 160/4.5 1 PUFF INH IH SCH (07:27)
[2022-02-21 08:35] LABS: Hematocrit 25.3 % (37.5-50.1); Hemoglobin 7.3 g/dL (12.9-16.9)
[2022-02-21] MEDS ORDERED: Aspirin Enteric Coated 81 MG Tablet PO SCH (09:00)
[2022-02-21] MEDS ORDERED: polyethylene glycoL 3350 17 GM POWD.PACK PO SCH (09:00)
[2022-02-21] MEDS: Venlafaxine XR (24 HR) 37.5 MG CAP.ER.24H PO SCH (09:22)
[2022-02-21] MEDS: Cyanocobalamin (B-12) 1,000 MCG TABLET PO SCH (09:22)
[2022-02-21] MEDS: hydroCHLOROthiazide 25 MG TABLET PO SCH (09:22)
[2022-02-21] MEDS: amLODIPine 5 MG TABLET PO SCH (09:23)
[2022-02-21] MEDS: Insulin DETEMIR 100 UNIT/ML X5UNITS SUBQ SCH (09:28)
[2022-02-21] MEDS ORDERED: Iron Sucrose Complex 400 MG in 0.9 % Sodium Chloride 250 ML IVPB ONE (09:47)
[2022-02-21 10:53] VITALS: BP 127/52; PULSE 63; TEMP 98.1; O2SAT 93
== END 2022-02-21 12:52 | disposition home or self-care (01) | DRG 377 ==
LOC: 3NENU 20:05 → EMEROOARM 20:05 → SUATTDRO 22:35 → 3NENU 22:51
PROVIDERS: ADMIT Internal Medicine; ATTEND Internal Medicine